=== PATIENT | male | born 1980 | race Caucasian/White ===

== ENCOUNTER 2017-12-19 09:27 | Inpatient (IN) | payer MEDICAID ==
[~2017-12-19] VITALS: Ht 177.8 cm; Wt 77.2 kg
[~2017-12-19 09:27] MED LIST: BUSP5TAB3 PO; FLUO20CA39 PO; LORA0.5T PO; OLAN10TA3 PO; QUET200T PO; QUET50TA PO
[2017-12-19 10:08] LABS: BASOPHILS % (AUTO) 0.4 % (0-1); EOSINOPHILS # (AUTO) 0.2 X10'3 (0-0.9); EOSINOPHILS % (AUTO) 1.6 % (0-6); HEMATOCRIT 53.8 % (42.0-52.0); LYMPHOCYTES # (AUTO) 1.3 X10'3 (1.1-4.8); LYMPHOCYTES % (AUTO) 10.2 % (21-51); MEAN CORPUSCULAR HEMOGLOBIN 33.4 PG (27.0-31.0); MEAN CORPUSCULAR VOLUME 95.4 FL (78-98); MEAN PLATELET VOLUME 7.5 FL (7.4-10.4); MONOCYTES # (AUTO) 1.4 X10'3 (0-0.9); MONOCYTES % (AUTO) 10.7 % (2-12); NEUTROPHILS # (AUTO) 9.9 X10'3 (1.8-7.7); NEUTROPHILS % (AUTO) 77.1 % (42-75); PLATELET COUNT 355 X10'3 (140-440); RED BLOOD COUNT 5.64 X10'6 (4.70-6.10); RED CELL DISTRIBUTION WIDTH 13.6 % (11.5-14.5); WHITE BLOOD COUNT 12.9 X10'3 (4.5-11.0)
[2017-12-19 10:11] LABS: HEMOGLOBIN 18.8 g/dl (14.0-17.9)
[2017-12-19 10:35] LABS: ALANINE AMINOTRANSFERASE 49 U/L (12-78); ALBUMIN 4.7 G/DL (3.4-5.0); ALBUMIN/GLOBULIN RATIO 1.1 (1.1-1.5); ALKALINE PHOSPHATASE 114 IU/L (46-116); ANION GAP 14 (8-16); ASPARTATE AMINO TRANSFERASE 72 U/L (10-37); BLOOD UREA NITROGEN 62 MG/DL (7-18); BUN/CREATININE RATIO 31.5 (5.4-32.0); CALCIUM 9.3 MG/DL (8.5-10.1); CHLORIDE 93 MMOL/L (99-107); CREATININE 1.97 MG/DL (0.60-1.10); GLUCOSE 116 MG/DL (70-104); POTASSIUM 4.1 MMOL/L (3.5-5.1); SODIUM 133 MMOL/L (135-145); TOTAL CARBON DIOXIDE 26.1 MMOL/L (24-32); TOTAL PROTEIN 9.1 G/DL (6.4-8.2); eGFR 38 ML/MIN
[2017-12-19 10:36] LABS: ETHANOL < 0.010 GM/DL (0.0-0.010)
[2017-12-19] MEDS ORDERED: normal saline 1000ML IV soln IVB ONE ×2 (10:50→12:55)
[2017-12-19 11:29] LABS: CREATINE KINASE 3062 U/L (39-308)
[2017-12-19 11:32] LABS: CLARITY,URINE CLEAR (Clear); COLOR,URINE YELLOW (Yellow); GLUCOSE, URINE 100 mg/dl (Neg); KETONES,URINE NEGATIVE (Neg); LEUKOCYTE ESTERASE ,URINE NEGATIVE (Neg); NITRITES, URINE NEGATIVE (Neg); OCCULT BLOOD,URINE LARGE (Neg); PROTEIN,URINE 100 mg/dl (Neg); UROBILINOGEN,URINE 0.2 E.U/dL (0.2-1.0)
[2017-12-19 11:34] LABS: UA COLLECTION TYPE URINAL
[2017-12-19 11:39] LABS: BACTERIA,URINE FEW /HPF (Neg); RBC,URINE NONE SEEN /HPF (0-2); SQUAMOUS EPITHELIAL CELL,UR FEW /LPF (FEW); WBC,URINE NONE SEEN /HPF (0-4)
[2017-12-19 11:44] LABS: URINE AMPHETAMINE SCREEN POSITIVE (Neg); URINE BARBITUATE SCREEN NEGATIVE (Neg); URINE BENZODIAZEPINES SCREEN NEGATIVE (Neg); URINE CANNABINOID SCREEN POSITIVE (Neg); URINE COCAINE SCREEN NEGATIVE (Neg); URINE METHADONE SCREEN NEGATIVE (Neg); URINE OPIATE SCREEN NEGATIVE (Neg); URINE PHENCYCLIDINE SCREEN NEGATIVE (Neg)
[2017-12-19] MEDS ORDERED: sodium bicarbonate (0.9mEq/ml) 44.6 mEq/50ml syringe IV ONE ×2 (12:55→18:25)
[2017-12-19] MEDS: normal saline 1000ml 1,000 ML IV SCH ×2 (14:03→20:10)
[2017-12-19] MEDS ORDERED: HYDROcodone/acetaminophen 5mg/325mg tablet PO PRN (14:05)
[2017-12-19] MEDS ORDERED: LORazepam 0.5 MG tablet PO PRN (14:05)
[2017-12-19] MEDS ORDERED: potassium Cl 20 mEq SR tablet PO PRN ×2 (14:05)
[2017-12-19] MEDS ORDERED: potassium Cl 40MEQ/NS 500ml 500 ML IV PRN ×2 (14:05)
[2017-12-19] MEDS ORDERED: mag hydrox/Alum hydrox/simeth 30ml oral suspension PO PRN (14:05)
[2017-12-19] MEDS ORDERED: magnesium Cl slow-release 64mg tablet PO PRN (14:05)
[2017-12-19] MEDS ORDERED: magnesium hydroxide 30ml (MOM) UD suspension PO PRN (14:05)
[2017-12-19] MEDS ORDERED: magnesium 4gm in 100ml NS 100 ML IV PRN (14:05)
[2017-12-19] MEDS ORDERED: magnesium 2GM in 50ml NS 50 ML IV PRN (14:05)
[2017-12-19] MEDS ORDERED: morphine 2 MG/ML inj. syringe IV PRN (14:05)
[2017-12-19] MEDS ORDERED: olanzapine 10mg tablet PO PRN (14:05)
[2017-12-19] MEDS ORDERED: diphenhydrAMINE 50 mg/ml inj IV PRN (14:05)
[2017-12-19] MEDS: K and/or MAG REPLACEMENT MC SCH (14:05)
[2017-12-19] MEDS ORDERED: acetaminophen 325mg tablet PO PRN (14:05)
[2017-12-19] MEDS ORDERED: ondansetron/PF 4mg/2ml inj IV PRN (14:05)
[2017-12-19] MEDS ORDERED: sodium bicarbonate (8.4%) 1 mEq/ml syringe IV ONE (18:30)
[2017-12-19] MEDS: FLUoxetine 20mg capsule PO SCH (18:49)
[2017-12-19] MEDS: quetiapine 100mg tablet PO SCH (20:08)
[2017-12-19] MEDS: busPIRone 5mg tablet PO SCH (20:08)
[2017-12-20] MEDS: normal saline 1000ml 1,000 ML IV SCH ×5 (00:03→20:07)
[2017-12-20 07:45] LABS: BASOPHILS % (AUTO) 0.3 % (0-1); EOSINOPHILS # (AUTO) 0.3 X10'3 (0-0.9); EOSINOPHILS % (AUTO) 2.8 % (0-6); HEMATOCRIT 37.5 % (42.0-52.0); HEMOGLOBIN 13.4 g/dl (14.0-17.9); LYMPHOCYTES # (AUTO) 2.1 X10'3 (1.1-4.8); LYMPHOCYTES % (AUTO) 23.7 % (21-51); MEAN CORPUSCULAR HEMOGLOBIN 33.9 PG (27.0-31.0); MEAN CORPUSCULAR HGB CONC 35.6 % (33.0-36.5); MEAN CORPUSCULAR VOLUME 95.2 FL (78-98); MEAN PLATELET VOLUME 7.3 FL (7.4-10.4); MONOCYTES # (AUTO) 1.2 X10'3 (0-0.9); MONOCYTES % (AUTO) 13.7 % (2-12); NEUTROPHILS # (AUTO) 5.3 X10'3 (1.8-7.7); NEUTROPHILS % (AUTO) 59.5 % (42-75); PLATELET COUNT 243 X10'3 (140-440); RED BLOOD COUNT 3.94 X10'6 (4.70-6.10); RED CELL DISTRIBUTION WIDTH 13.7 % (11.5-14.5); WHITE BLOOD COUNT 8.9 X10'3 (4.5-11.0)
[2017-12-20] MEDS: K and/or MAG REPLACEMENT MC SCH (08:00)
[2017-12-20 08:16] LABS: ALANINE AMINOTRANSFERASE 48 U/L (12-78); ALBUMIN 2.8 G/DL (3.4-5.0); ALKALINE PHOSPHATASE 67 IU/L (46-116); ANION GAP 6 (8-16); ASPARTATE AMINO TRANSFERASE 50 U/L (10-37); BILIRUBIN,TOTAL 0.7 MG/DL (0.1-1.0); BLOOD UREA NITROGEN 20 MG/DL (7-18); BUN/CREATININE RATIO 23.8 (5.4-32.0); CALCIUM 7.5 MG/DL (8.5-10.1); CHLORIDE 108 MMOL/L (99-107); CREATININE 0.84 MG/DL (0.60-1.10); GLUCOSE 93 MG/DL (70-104); MAGNESIUM 2.1 MG/DL (1.5-2.4); PHOSPHORUS 1.7 MG/DL (2.3-4.5); POTASSIUM 4.5 MMOL/L (3.5-5.1); SODIUM 140 MMOL/L (135-145); TOTAL PROTEIN 5.6 G/DL (6.4-8.2); eGFR > 90 ML/MIN
[2017-12-20 08:18] LABS: CREATINE KINASE 1555 U/L (39-308)
[2017-12-20] MEDS: FLUoxetine 20mg capsule PO SCH (11:35)
[2017-12-20] MEDS: quetiapine 100mg tablet PO SCH ×2 (11:35→22:37)
[2017-12-20] MEDS: busPIRone 5mg tablet PO SCH ×2 (11:36→22:36)
[2017-12-20 14:16] VITALS: BP 121/78
[2017-12-20 15:00] VITALS: BP 117/68
[2017-12-20 18:00] VITALS: BP 134/82
[2017-12-20 22:00] VITALS: BP 132/82
[2017-12-21 02:00] VITALS: BP 126/78
[2017-12-21] MEDS: normal saline 1000ml 1,000 ML IV SCH ×4 (02:24→19:38)
[2017-12-21 06:00] VITALS: BP 112/78
[2017-12-21 06:09] LABS: BASOPHILS % (AUTO) 0.2 % (0-1); EOSINOPHILS # (AUTO) 0.4 X10'3 (0-0.9); EOSINOPHILS % (AUTO) 4.5 % (0-6); HEMATOCRIT 37.4 % (42.0-52.0); HEMOGLOBIN 13.3 g/dl (14.0-17.9); LYMPHOCYTES # (AUTO) 2.1 X10'3 (1.1-4.8); MEAN CORPUSCULAR HGB CONC 35.5 % (33.0-36.5); MEAN CORPUSCULAR VOLUME 95.6 FL (78-98); MEAN PLATELET VOLUME 7.1 FL (7.4-10.4); MONOCYTES # (AUTO) 0.9 X10'3 (0-0.9); MONOCYTES % (AUTO) 10.6 % (2-12); NEUTROPHILS # (AUTO) 4.7 X10'3 (1.8-7.7); NEUTROPHILS % (AUTO) 58.7 % (42-75); PLATELET COUNT 225 X10'3 (140-440); RED BLOOD COUNT 3.91 X10'6 (4.70-6.10); RED CELL DISTRIBUTION WIDTH 13.8 % (11.5-14.5); WHITE BLOOD COUNT 8.1 X10'3 (4.5-11.0)
[2017-12-21 06:36] LABS: ALANINE AMINOTRANSFERASE 41 U/L (12-78); ALBUMIN 2.7 G/DL (3.4-5.0); ALKALINE PHOSPHATASE 73 IU/L (46-116); ANION GAP 9 (8-16); ASPARTATE AMINO TRANSFERASE 36 U/L (10-37); BILIRUBIN,TOTAL 0.6 MG/DL (0.1-1.0); BLOOD UREA NITROGEN 9 MG/DL (7-18); BUN/CREATININE RATIO 11.3 (5.4-32.0); CALCIUM 7.8 MG/DL (8.5-10.1); CHLORIDE 108 MMOL/L (99-107); CREATINE KINASE 772 U/L (39-308); GLUCOSE 94 MG/DL (70-104); MAGNESIUM 1.7 MG/DL (1.5-2.4); PHOSPHORUS 2.1 MG/DL (2.3-4.5); POTASSIUM 4.3 MMOL/L (3.5-5.1); SODIUM 142 MMOL/L (135-145); TOTAL CARBON DIOXIDE 25.1 MMOL/L (24-32); TOTAL PROTEIN 5.5 G/DL (6.4-8.2); eGFR > 90 ML/MIN
[2017-12-21] MEDS: K and/or MAG REPLACEMENT MC SCH (08:00)
[2017-12-21] MEDS: FLUoxetine 20mg capsule PO SCH (08:02)
[2017-12-21] MEDS: busPIRone 5mg tablet PO SCH ×2 (08:03→19:36)
[2017-12-21] MEDS: quetiapine 100mg tablet PO SCH ×2 (08:03→19:36)
[2017-12-21] MEDS ORDERED: pneumococcal 23-VAL P-sac vacc 25 mcg/0.5ml vial IMVAC ONE (10:00)
[2017-12-21 11:00] VITALS: BP 117/69
[2017-12-21 15:00] VITALS: BP 125/78
[2017-12-21 19:00] VITALS: BP 133/82
[2017-12-21 22:00] VITALS: BP 129/78
[2017-12-22 02:00] VITALS: BP 125/77
[2017-12-22 05:27] LABS: BASOPHILS % (AUTO) 0.6 % (0-1); EOSINOPHILS # (AUTO) 0.5 X10'3 (0-0.9); EOSINOPHILS % (AUTO) 6.9 % (0-6); HEMATOCRIT 39.2 % (42.0-52.0); HEMOGLOBIN 14.1 g/dl (14.0-17.9); LYMPHOCYTES % (AUTO) 30.2 % (21-51); MEAN CORPUSCULAR HEMOGLOBIN 34.3 PG (27.0-31.0); MEAN CORPUSCULAR VOLUME 95.1 FL (78-98); MEAN PLATELET VOLUME 7.7 FL (7.4-10.4); MONOCYTES # (AUTO) 0.7 X10'3 (0-0.9); MONOCYTES % (AUTO) 10.5 % (2-12); NEUTROPHILS # (AUTO) 3.5 X10'3 (1.8-7.7); NEUTROPHILS % (AUTO) 51.8 % (42-75); PLATELET COUNT 250 X10'3 (140-440); RED BLOOD COUNT 4.13 X10'6 (4.70-6.10); RED CELL DISTRIBUTION WIDTH 13.1 % (11.5-14.5); WHITE BLOOD COUNT 6.7 X10'3 (4.5-11.0)
[2017-12-22] MEDS: normal saline 1000ml 1,000 ML IV SCH (05:49)
[2017-12-22 06:00] VITALS: BP 138/81
[2017-12-22 06:10] LABS: ALANINE AMINOTRANSFERASE 50 U/L (12-78); ALKALINE PHOSPHATASE 81 IU/L (46-116); ANION GAP 8 (8-16); ASPARTATE AMINO TRANSFERASE 33 U/L (10-37); BILIRUBIN,TOTAL 0.4 MG/DL (0.1-1.0); BLOOD UREA NITROGEN 14 MG/DL (7-18); BUN/CREATININE RATIO 15.1 (5.4-32.0); CHLORIDE 105 MMOL/L (99-107); CREATININE 0.93 MG/DL (0.60-1.10); GLUCOSE 87 MG/DL (70-104); MAGNESIUM 1.6 MG/DL (1.5-2.4); PHOSPHORUS 2.6 MG/DL (2.3-4.5); POTASSIUM 4.2 MMOL/L (3.5-5.1); SODIUM 139 MMOL/L (135-145); TOTAL CARBON DIOXIDE 25.9 MMOL/L (24-32); TOTAL PROTEIN 6.1 G/DL (6.4-8.2); eGFR > 90 ML/MIN
[2017-12-22] MEDS: K and/or MAG REPLACEMENT MC SCH (08:00)
[2017-12-22] MEDS ORDERED: quetiapine 100mg tablet PO SCH (08:00)
[2017-12-22] MEDS: busPIRone 5mg tablet PO SCH (08:13)
[2017-12-22] MEDS: FLUoxetine 20mg capsule PO SCH (08:13)
[2017-12-22 11:00] VITALS: BP 113/47
[2017-12-22] MEDS ORDERED: QUET200T PO (19:42)
== END 2017-12-22 14:10 | DRG 351 ==
LOC: ER 09:27 → OBSVTOIN 14:03 → ED HOLD 14:03 → PCU 3S 12-20 14:10
PROVIDERS: ADMIT Family Medicine; ATTEND Family Medicine
PROC: 3E0234Z Introduction of Serum, Toxoid and Vaccine into Muscle, Percutaneous Approach (ICD-10-PCS; principal; 2017-12-21)
DX: M62.82 Rhabdomyolysis (principal); N17.9 Acute kidney failure, unspecified; R45.851 Suicidal ideations; E87.1 Hypo-osmolality and hyponatremia; E86.0 Dehydration; F12.10 Cannabis abuse, uncomplicated; F15.10 Other stimulant abuse, uncomplicated; F20.9 Schizophrenia, unspecified; F41.9 Anxiety disorder, unspecified; Z72.0 Tobacco use; Z23 Encounter for immunization; Z79.899 Other long term (current) drug therapy; Z59.0 Homelessness; Z72.89 Other problems related to lifestyle; Z71.6 Tobacco abuse counseling
CPT/HCPCS: 36415; 80053; 80305; 80320; 81001; 82550; 83735; 83874; 84100; 85025; 87070; 90732; 99291; J2270; J7030

== ENCOUNTER 2017-12-22 14:10 | Emergency (ER) | payer MEDICAID ==
[~2017-12-22] VITALS: Ht 5871 cm; Wt 75.0 kg
[2017-12-22 14:48] LABS: BASOPHILS % (AUTO) 0.4 % (0-1); EOSINOPHILS # (AUTO) 0.4 X10'3 (0-0.9); EOSINOPHILS % (AUTO) 5.1 % (0-6); HEMATOCRIT 40.5 % (42.0-52.0); HEMOGLOBIN 14.4 g/dl (14.0-17.9); LYMPHOCYTES # (AUTO) 2.1 X10'3 (1.1-4.8); MEAN CORPUSCULAR HEMOGLOBIN 34.3 PG (27.0-31.0); MEAN CORPUSCULAR HGB CONC 35.5 % (33.0-36.5); MEAN CORPUSCULAR VOLUME 96.6 FL (78-98); MEAN PLATELET VOLUME 7.6 FL (7.4-10.4); MONOCYTES # (AUTO) 0.7 X10'3 (0-0.9); MONOCYTES % (AUTO) 8.1 % (2-12); NEUTROPHILS # (AUTO) 5.2 X10'3 (1.8-7.7); NEUTROPHILS % (AUTO) 61.4 % (42-75); PLATELET COUNT 261 X10'3 (140-440); RED BLOOD COUNT 4.19 X10'6 (4.70-6.10); RED CELL DISTRIBUTION WIDTH 13.3 % (11.5-14.5); WHITE BLOOD COUNT 8.4 X10'3 (4.5-11.0)
[2017-12-22 15:10] LABS: ALANINE AMINOTRANSFERASE 48 U/L (12-78); ALBUMIN/GLOBULIN RATIO 0.9 (1.1-1.5); ALKALINE PHOSPHATASE 84 IU/L (46-116); ANION GAP 6 (8-16); ASPARTATE AMINO TRANSFERASE 27 U/L (10-37); BILIRUBIN,TOTAL 0.3 MG/DL (0.1-1.0); BLOOD UREA NITROGEN 16 MG/DL (7-18); BUN/CREATININE RATIO 18.8 (5.4-32.0); CALCIUM 8.1 MG/DL (8.5-10.1); CHLORIDE 105 MMOL/L (99-107); CREATININE 0.85 MG/DL (0.60-1.10); ETHANOL < 0.010 GM/DL (0.0-0.010); GLUCOSE 120 MG/DL (70-104); POTASSIUM 3.8 MMOL/L (3.5-5.1); SODIUM 139 MMOL/L (135-145); TOTAL CARBON DIOXIDE 27.8 MMOL/L (24-32); TOTAL PROTEIN 6.3 G/DL (6.4-8.2); eGFR > 90 ML/MIN
[2017-12-22 16:39] LABS: CLARITY,URINE CLEAR (Clear); COLOR,URINE YELLOW (Yellow); GLUCOSE, URINE 250 mg/dl (Neg); KETONES,URINE NEGATIVE (Neg); LEUKOCYTE ESTERASE ,URINE NEGATIVE (Neg); NITRITES, URINE NEGATIVE (Neg); OCCULT BLOOD,URINE NEGATIVE (Neg); PROTEIN,URINE NEGATIVE (Neg); UROBILINOGEN,URINE 0.2 E.U/dL (0.2-1.0)
[2017-12-22 16:41] LABS: UA COLLECTION TYPE URINAL; URINE AMPHETAMINE SCREEN NEGATIVE (Neg); URINE BARBITUATE SCREEN NEGATIVE (Neg); URINE BENZODIAZEPINES SCREEN NEGATIVE (Neg); URINE CANNABINOID SCREEN POSITIVE (Neg); URINE COCAINE SCREEN NEGATIVE (Neg); URINE METHADONE SCREEN NEGATIVE (Neg); URINE OPIATE SCREEN NEGATIVE (Neg); URINE PHENCYCLIDINE SCREEN NEGATIVE (Neg)
[2017-12-22] MEDS ORDERED: QUET200T PO (19:42)
[2017-12-22] MEDS: LORazepam 0.5 MG tablet PO PRN (21:19)
[2017-12-23] MEDS ORDERED: quetiapine 100mg tablet PO SCH (07:30)
[2017-12-23] MEDS: LORazepam 0.5 MG tablet PO PRN (07:41)
[2017-12-23] MEDS ORDERED: FLUoxetine 20mg capsule PO SCH (08:00)
[2017-12-23] MEDS ORDERED: busPIRone 5mg tablet PO SCH (08:00)
[2017-12-23 09:21] VITALS: BP 117/71
== END 2017-12-23 09:29 ==
LOC: ER 14:10
DX: F31.9 Bipolar disorder, unspecified (principal); F20.9 Schizophrenia, unspecified; F41.9 Anxiety disorder, unspecified; F29 Unspecified psychosis not due to a substance or known physiological condition; F12.10 Cannabis abuse, uncomplicated; F15.10 Other stimulant abuse, uncomplicated; F11.10 Opioid abuse, uncomplicated; M62.82 Rhabdomyolysis; Z79.899 Other long term (current) drug therapy; Z56.0 Unemployment, unspecified; Z60.2 Problems related to living alone; Z59.0 Homelessness
CPT/HCPCS: 36415; 80053; 80305; 80320; 81003; 84443; 85025; 99285

== ENCOUNTER 2018-01-03 11:53 | Emergency (ER) | payer MEDICAID ==
[~2018-01-03] VITALS: Ht 6401223 cm; Wt 70.0 kg
[~2018-01-03 11:53] MED LIST changes: -OLAN10TA3 PO; -QUET50TA PO
[2018-01-03 12:59] LABS: BASOPHILS % (AUTO) 0.2 % (0-1); EOSINOPHILS # (AUTO) 0.2 X10'3 (0-0.9); EOSINOPHILS % (AUTO) 2.7 % (0-6); HEMOGLOBIN 17.4 g/dl (14.0-17.9); LYMPHOCYTES # (AUTO) 1.7 X10'3 (1.1-4.8); LYMPHOCYTES % (AUTO) 19.2 % (21-51); MEAN CORPUSCULAR HEMOGLOBIN 33.1 PG (27.0-31.0); MEAN CORPUSCULAR HGB CONC 34.7 % (33.0-36.5); MEAN CORPUSCULAR VOLUME 95.6 FL (78-98); MONOCYTES # (AUTO) 0.8 X10'3 (0-0.9); MONOCYTES % (AUTO) 9.4 % (2-12); NEUTROPHILS # (AUTO) 5.9 X10'3 (1.8-7.7); NEUTROPHILS % (AUTO) 68.5 % (42-75); PLATELET COUNT 303 X10'3 (140-440); RED BLOOD COUNT 5.23 X10'6 (4.70-6.10); RED CELL DISTRIBUTION WIDTH 13.7 % (11.5-14.5); WHITE BLOOD COUNT 8.6 X10'3 (4.5-11.0)
[2018-01-03 13:30] LABS: ALANINE AMINOTRANSFERASE 43 U/L (12-78); ALBUMIN 4.4 G/DL (3.4-5.0); ALKALINE PHOSPHATASE 143 IU/L (46-116); ANION GAP 8 (8-16); ASPARTATE AMINO TRANSFERASE 21 U/L (10-37); BILIRUBIN,TOTAL 0.4 MG/DL (0.1-1.0); BLOOD UREA NITROGEN 20 MG/DL (7-18); BUN/CREATININE RATIO 19.6 (5.4-32.0); CALCIUM 9.4 MG/DL (8.5-10.1); CHLORIDE 102 MMOL/L (99-107); CREATININE 1.02 MG/DL (0.60-1.10); ETHANOL < 0.010 GM/DL (0.0-0.010); GLUCOSE 119 MG/DL (70-104); POTASSIUM 4.4 MMOL/L (3.5-5.1); SODIUM 138 MMOL/L (135-145); TOTAL CARBON DIOXIDE 27.8 MMOL/L (24-32); TOTAL PROTEIN 8.8 G/DL (6.4-8.2); eGFR 82 ML/MIN
[2018-01-03] MEDS ORDERED: PRAZ1CAP5 PO (13:58)
[2018-01-03] MEDS ORDERED: CARB100T7 PO (13:58)
[2018-01-03] MEDS ORDERED: QUET200T30 PO (13:58)
[2018-01-03] MEDS ORDERED: CARB200T PO (13:58)
[2018-01-03 14:51] LABS: BASOPHILS # (AUTO) 0.1 X10'3 (0-0.2); BASOPHILS % (AUTO) 0.6 % (0-1); EOSINOPHILS # (AUTO) 0.2 X10'3 (0-0.9); EOSINOPHILS % (AUTO) 2.5 % (0-6); HEMATOCRIT 48.2 % (42.0-52.0); HEMOGLOBIN 16.6 g/dl (14.0-17.9); LYMPHOCYTES # (AUTO) 1.8 X10'3 (1.1-4.8); LYMPHOCYTES % (AUTO) 19.3 % (21-51); MEAN CORPUSCULAR HGB CONC 34.5 % (33.0-36.5); MEAN CORPUSCULAR VOLUME 95.8 FL (78-98); MEAN PLATELET VOLUME 7.2 FL (7.4-10.4); MONOCYTES # (AUTO) 0.9 X10'3 (0-0.9); MONOCYTES % (AUTO) 10.3 % (2-12); NEUTROPHILS # (AUTO) 6.1 X10'3 (1.8-7.7); NEUTROPHILS % (AUTO) 67.3 % (42-75); PLATELET COUNT 284 X10'3 (140-440); RED BLOOD COUNT 5.03 X10'6 (4.70-6.10); RED CELL DISTRIBUTION WIDTH 13.5 % (11.5-14.5); WHITE BLOOD COUNT 9.1 X10'3 (4.5-11.0)
[2018-01-03 16:14] LABS: CLARITY,URINE CLEAR (Clear); COLOR,URINE YELLOW (Yellow); GLUCOSE, URINE NEGATIVE (Neg); KETONES,URINE TRACE mg/dl (Neg); LEUKOCYTE ESTERASE ,URINE NEGATIVE (Neg); NITRITES, URINE NEGATIVE (Neg); OCCULT BLOOD,URINE TRACE-LYSED (Neg); PROTEIN,URINE 30 mg/dl (Neg); UROBILINOGEN,URINE 0.2 E.U/dL (0.2-1.0)
[2018-01-03 16:19] LABS: UA COLLECTION TYPE CLN CATCH MIDSTREAM
[2018-01-03 16:20] LABS: BACTERIA,URINE NONE SEEN /HPF (Neg); MUCUS STRANDS MODERATE /LPF (Neg); RBC,URINE 0-2 /HPF (0-2); SQUAMOUS EPITHELIAL CELL,UR NONE SEEN /LPF (FEW); WBC,URINE 0-4 /HPF (0-4)
[2018-01-03 16:31] LABS: URINE AMPHETAMINE SCREEN POSITIVE (Neg); URINE BARBITUATE SCREEN NEGATIVE (Neg); URINE BENZODIAZEPINES SCREEN NEGATIVE (Neg); URINE CANNABINOID SCREEN POSITIVE (Neg); URINE COCAINE SCREEN NEGATIVE (Neg); URINE METHADONE SCREEN NEGATIVE (Neg); URINE OPIATE SCREEN NEGATIVE (Neg); URINE PHENCYCLIDINE SCREEN NEGATIVE (Neg)
[2018-01-03] MEDS ORDERED: quetiapine 100mg tablet PO ONE (18:55)
[2018-01-03] MEDS ORDERED: prazosin 1mg capsule PO SCH (21:00)
[2018-01-03] MEDS ORDERED: carBAMazepine Ext. Release 200 MG TAB.ER.12H PO SCH (21:00)
[2018-01-04 05:36] VITALS: BP 103/68
[2018-01-04] MEDS ORDERED: quetiapine 100mg tablet PO SCH ×2 (08:00→12:00)
[2018-01-04] MEDS ORDERED: carBAMazepine 100mg chewable tablet PO SCH (08:00)
== END 2018-01-04 13:02 | disposition home or self-care (01) ==
LOC: ER 11:54
DX: F15.10 Other stimulant abuse, uncomplicated (principal); R45.851 Suicidal ideations; F17.200 Nicotine dependence, unspecified, uncomplicated; F20.9 Schizophrenia, unspecified; F41.9 Anxiety disorder, unspecified; F12.10 Cannabis abuse, uncomplicated; F11.10 Opioid abuse, uncomplicated; Z59.0 Homelessness; Z56.0 Unemployment, unspecified; Z60.2 Problems related to living alone
CPT/HCPCS: 36415; 80053; 80156; 80305; 80320; 81001; 84443; 85025; 99284; A4649; A6196; A6449

== ENCOUNTER 2019-12-01 10:58 | Emergency (ER) | payer MEDICAID ==
[~2019-12-01] VITALS: Ht 185.4 cm; Wt 77.0 kg
[~2019-12-01 10:58] MED LIST changes: -BUSP5TAB3 PO; +CARB100T7 PO; +CARB200T PO; -FLUO20CA39 PO; -LORA0.5T PO; +PRAZ1CAP5 PO; +QUET200T30 PO
[2019-12-01] MEDS ORDERED: OLANZapine 5mg rapidly disint. tablet PO ONE (11:25)
[2019-12-01 11:52] LABS: BASOPHILS # (AUTO) 0.1 X10'3 (0-0.2); BASOPHILS % (AUTO) 0.9 % (0-1); EOSINOPHILS # (AUTO) 0.4 X10'3 (0-0.9); EOSINOPHILS % (AUTO) 4.9 % (0-6); HEMOGLOBIN 15.6 g/dl (14.0-17.9); LYMPHOCYTES # (AUTO) 2.2 X10'3 (1.1-4.8); LYMPHOCYTES % (AUTO) 28.7 % (21-51); MEAN CORPUSCULAR HEMOGLOBIN 33.6 PG (27.0-31.0); MEAN CORPUSCULAR HGB CONC 34.7 g/dL (33.0-36.5); MEAN PLATELET VOLUME 7.2 FL (7.4-10.4); MONOCYTES # (AUTO) 0.8 X10'3 (0-0.9); MONOCYTES % (AUTO) 10.3 % (2-12); NEUTROPHILS # (AUTO) 4.3 X10'3 (1.8-7.7); NEUTROPHILS % (AUTO) 55.2 % (42-75); PLATELET COUNT 323 X10'3 (140-440); RED BLOOD COUNT 4.64 X10'6 (4.70-6.10); RED CELL DISTRIBUTION WIDTH 13.4 % (11.5-14.5); WHITE BLOOD COUNT 7.7 X10'3 (4.5-11.0)
[2019-12-01 12:05] LABS: ALANINE AMINOTRANSFERASE 37 U/L (12-78); ALBUMIN/GLOBULIN RATIO 1.2 (1.1-1.5); ALKALINE PHOSPHATASE 105 IU/L (46-116); ANION GAP 4 (8-16); ASPARTATE AMINO TRANSFERASE 19 U/L (10-37); BILIRUBIN,TOTAL 0.3 MG/DL (0.1-1.0); BLOOD UREA NITROGEN 12 MG/DL (7-18); BUN/CREATININE RATIO 14.6 (5.4-32.0); CALCIUM 8.7 MG/DL (8.5-10.1); CHLORIDE 104 MMOL/L (99-107); CREATININE 0.82 MG/DL (0.60-1.10); ETHANOL < 0.010 GM/DL (0.0-0.010); GLUCOSE 95 MG/DL (70-104); POTASSIUM 4.3 MMOL/L (3.5-5.1); SODIUM 136 MMOL/L (135-145); TOTAL CARBON DIOXIDE 27.8 MMOL/L (24-32); TOTAL PROTEIN 7.4 G/DL (6.4-8.2); eGFR > 90 ML/MIN
[2019-12-01 12:25] LABS: URINE AMPHETAMINE SCREEN NEGATIVE (Neg); URINE BARBITUATE SCREEN NEGATIVE (Neg); URINE BENZODIAZEPINES SCREEN NEGATIVE (Neg); URINE CANNABINOID SCREEN POSITIVE (Neg); URINE COCAINE SCREEN NEGATIVE (Neg); URINE METHADONE SCREEN NEGATIVE (Neg); URINE OPIATE SCREEN NEGATIVE (Neg); URINE PHENCYCLIDINE SCREEN NEGATIVE (Neg)
--- NOTE | 2019-12-01 12:30 | NUR ---
SPOKE WITH PT MOTHER JESSIKA # [phone], MOTHER REPORTS PT HAS LIFETIME HX OF METHAMPHETAMINE ABUSE, BIPOLAR POSSIBLE SCHIZOPHRENIA, PT HAS NEVER HAD A JOB, PREVIOUSLY LIVED WITH MOTHER 11/2017-04/2018 WAS SEEING PSYCH PROVIDER BUT DOES NOT KNOW NAME, PT ALSO HAS BEEN TO [facility] AND [facility] FOR REHAB IN THE PAST, PT HAS USED SERVICES AT THE [facility] IN YEARS PAST BUT HAS ONLY RECENTLY MOVED BACK TO [place] FROM [place] 3 DAYS AGO, PT MOTHER STATES PT HAS IRRACTIC BEHAVIOR WITH OCCASSIONAL OUTBURST. PT REPORTS HE ONLY TAKES ZYPREXA BUT HAS NOT TAKEN ZYPREXA IN 3 DAYS, PT REPORTS TO NAHID MORA HIS PLAN IS TO USE HEROIN BUT HE DOES NOT USE HERIN, CALLED [facility] IN [place] TO GET MEDICATION INFORMATION [phone] PT LAST FILLED MEDICATIONS 11/06/2019 OLANZAPINE 20MG 1.5 TABS HS, HYDROXYZINE 50 MG 1 TAB TID ANXIETY, AND ESCITALOPRAM 20MG DAILY AND PROVIDER NAME MARJ CONTRERAS DO [phone] WILL CALL PROVIDER TO VERFIY MEDICATION INFORMATION. PT PREVIOUSLY FILLED 3 MONTHS AGO GABAPENTIN 300 MG TID BUT IT WAS NOT FILLED IN OCTOBER WITH OTHER MEDICATIONS.
--- NOTE | 2019-12-01 12:37 | NUR ---
PT AMBULATORY FROM BED 14 TO BED 24 ESCORTED BY GERDA MORA AND CARLOS TAPIA. PT CALM AND COOPERATIVE DURING TRANSFER OF BED.
--- NOTE | 2019-12-01 12:59 | NUR ---
CALLED [phone] LEFT MESSAGE WITH [facility]EEB JON[facility] LEFT MESSAGE TO CONFIRM MEDICATIONS AND MEDICAL HISTORY
[2019-12-01] MEDS ORDERED: HYDR50TA65 PO (13:10)
[2019-12-01] MEDS ORDERED: ESCI20TA45 PO (13:10)
[2019-12-01] MEDS ORDERED: OLAN2.5T3 PO (13:10)
[2019-12-01] MEDS ORDERED: OLAN20TA19 PO (13:10)
[2019-12-01 13:12] LABS: CLARITY,URINE CLEAR (Clear); COLOR,URINE YELLOW (Yellow); GLUCOSE, URINE NEGATIVE (Neg); KETONES,URINE NEGATIVE (Neg); LEUKOCYTE ESTERASE ,URINE NEGATIVE (Neg); NITRITES, URINE NEGATIVE (Neg); OCCULT BLOOD,URINE NEGATIVE (Neg); PH,URINE 7.5 (4.8-8.0); PROTEIN,URINE NEGATIVE (Neg); UROBILINOGEN,URINE 0.2 E.U/dL (0.2-1.0)
--- NOTE | 2019-12-01 13:15 | NUR ---
PT ATE LUNCH TRAY VERY FAST AND THEN IMMEDIATELY LAY DOWN IN BED 24
[2019-12-01 13:17] LABS: UA COLLECTION TYPE CLN CATCH MIDSTREAM
[2019-12-01 13:33] LABS: SQUAMOUS EPITHELIAL CELL,UR FEW /LPF (FEW)
[2019-12-01 13:34] LABS: BACTERIA,URINE FEW /HPF (Neg); RBC,URINE 0-2 /HPF (0-2); WBC,URINE 0-4 /HPF (0-4)
--- NOTE | 2019-12-01 14:46 | NUR ---
PT SLEEPING ON BACK, RESPIRATIONS SPONTAENOUS, EVEN AND UNLABORED, NO S/S OF DISTRESS, DISCOMFORT OR AGITATION, PT IN LINE OF SITE OF NURSES STATION AND ED SITTER KAJAL
--- NOTE | 2019-12-01 16:55 | NUR ---
PT IS SLEEPING ON RIGHT SIDE, RESPRIATIONS SPONTANEOUS, EVEN AND UNLABORED, NO S/S OF DISTRESS, DISCOMFORT, OR AGITATION. PT IN LINE OF SITE OF NURSES STATION AND ED SITTER KAJAL.
--- NOTE | 2019-12-01 17:15 | NUR ---
RIC WITH [facility] AT BEDSIDE FOR EVALUATION NOW
--- NOTE | 2019-12-01 17:28 | NUR ---
PT WAS VERY CONFRONTATION WITH GERDA MORA AND RIC AVALOS DURING EVALUATION, PT USED MOSTLY PROFANITY AND DID NOT MAKE MANY STATEMENTS THAT MADE MUCH SENSE, PT DID REPORT HE IS HAVING A BAD DAY BUT BECAME UPSET SITTING UP IN BED WITH EYES CLOSED YELLING ABOUT PEOPLE MESSING WITH HIM AND UPSETING HIM, HE WAS IRRITATED ABOUT SAME QUESTIONS BEING ASKED, INSTRUCTED HIM THAT HE WOULD BE ASKED SIMILAR QUESTION AND HE WOULD SUBMIT AND BE AGREEABLE UNTIL ANOTHER QUESTION WAS ASKED AND THEN THE SAME CYCLE OF HIM SITTING UP, YELLING, EYES CLOSED AND IRRITATED. [facility] ENDED EVALUATION AND WILL CALL PT MOTHER TO GET HISTORY, GERDA MORA GAVE RIC AVALOS A BRIEF REPORTS OF PATIENT MEDICAL, DRUG, AND PSYCH HISTORY
--- NOTE | 2019-12-01 18:40 | NUR ---
PT IS AWAKE SITTING UP IN BED TALKING TO [facility] WORK[facility].
[2019-12-01] MEDS: hydrOXYzine 25 MG tablet PO SCH ×2 (20:27→21:00)
[2019-12-01] MEDS: olanzapine 10mg tablet PO SCH ×2 (20:27→21:00)
--- NOTE | 2019-12-01 20:47 | NUR ---
PT REFUSED ASSESSMENT AND HS MEDICATIONS ATARAX AND ZYPREXA. LABORER BITUMINOUS PAVING ATTEMPTED TO GIV E MEDS 3X, BU PT REFUSED EACH TIME, WOULD NOT TALK TO LABORER BITUMINOUS PAVING AND KEPT HIS EYES CLOSED.
--- NOTE | 2019-12-01 22:19 | NUR ---
PT ASLEEP ON BACK RR 14, NO SIGNS OR SYMPTOMS OF DISTRESS AT THIS TIME.
--- NOTE | 2019-12-02 00:49 | NUR ---
PT IS LYING AWAKE IN BED, CAN BE HEARD MUMBLING TO HIMSELF OCCASIONALLY.
--- NOTE | 2019-12-02 01:12 | NUR ---
PT GETS UP TO USE THE RESTROOM, LEAD RETAIL SALES ASSOCIATE APPROACHES PT TO SEE IF HE NEEDS ANYRTHING BUT BEFORE LEAD RETAIL SALES ASSOCIATE COULD SPEAK PT HOLDS HIS HANDS UP AND SAYS, "JUST DON'T TALK TO ME." AND GOES TO THE BATHROOM AND RETURNS TO BED.
[2019-12-02] MEDS: hydrOXYzine 25 MG tablet PO SCH ×3 (08:00→20:09)
[2019-12-02] MEDS: ESCITALOPRAM OXALATE 5 MG TABLET PO SCH (08:00)
--- NOTE | 2019-12-02 08:56 | NUR ---
NEIGHBOR PT REPORTS THIS PT STATED "STOP FUCKING ASKING FOR THINGS, IT'S PISSING ME OFF". RN AWARE, COOLER MAN MONITORING PTS CLOSELY.
--- NOTE | 2019-12-02 09:21 | NUR ---
Breaking primary RN, pt is laying on his left side, eyes closed, regular breathing no s/s of agitation observed
--- NOTE | 2019-12-02 12:38 | NUR ---
Breaking Primary RN, Pt is standing at the end of his bed, requested something to drink, was given milk
--- NOTE | 2019-12-02 13:00 | NUR ---
Pt req Gabapentin, says it is due at this time, I told him that it is not a medication that is ordered for him and it does not appear on his external med history, but he has an order for aterax, he refused aterax
--- NOTE | 2019-12-02 18:40 | NUR ---
Received report and assumed patient care from ABBY Gonsales. The patient is currently awake and alert, lying on his left side in bed resting. He denies pain or discomfort. Pt is in direct line of sight of the nursing station.
[2019-12-02] MEDS: olanzapine 10mg tablet PO SCH (20:09)
--- NOTE | 2019-12-02 20:35 | NUR ---
The patient is sleeping on his back at this time. He denies pain or discomfort. The patient was easily arousable and took his HS medication at 2014 after utilizing the restroom. He has visible respirations and is in direct line of sight of the nursing station.
--- NOTE | 2019-12-02 22:28 | NUR ---
The patient is currently lying on his right side, sleeping in bed. He has visible respirations and is in direct line of sight of the nursing station. He does not show sign of pain or discomfort.
--- NOTE | 2019-12-03 00:25 | NUR ---
The patient is sleeping on his left side with visible respiration. He does not show sign of pain or discomfort. He utilized the bathroom at 0010. He is in direct line of sight of the nursing station.
--- NOTE | 2019-12-03 02:21 | NUR ---
Pt is currently sleeping on his back with visible respirations. He got up to use the toilet at 0100. He does not show sign of pain or distress. Pt is in direct line of sight of the nursing station.
--- NOTE | 2019-12-03 03:40 | NUR ---
The patient is currently on his back, sleeping, with visible respirations. He is independent of turning himself and does not show sign of pain or discomfort. He is in direct line of sight of the nursing station.
--- NOTE | 2019-12-03 05:11 | NUR ---
The patient is currently sleeping on his right side with visible respirations. He does not show sign of pain or discomfort. He is in direct line of sight of the nursing station.
[2019-12-03 05:33] VITALS: BP 131/75
[2019-12-03] MEDS: hydrOXYzine 25 MG tablet PO SCH ×2 (08:15→12:57)
[2019-12-03] MEDS: ESCITALOPRAM OXALATE 5 MG TABLET PO SCH (08:28)
--- NOTE | 2019-12-03 09:00 | NUR ---
Spoke with Stacey at [facility] office. Pt packets have been sent out but limited on available beds as [place] from different [place] and limited facilities that are contracted with [facility].
--- NOTE | 2019-12-03 10:44 | NUR ---
Pt laying on left side resting with eyes closed, effortless respirations observed.
--- NOTE | 2019-12-03 13:10 | NUR ---
Pt is sitting up eating lunch.
--- NOTE | 2019-12-03 14:28 | NUR ---
pt is sitting on side of bed eating a snack.
[2019-12-03] MEDS ORDERED: GABA-532 PO (17:44)
== END 2019-12-03 16:10 ==
LOC: ER 10:58
DX: R45.851 Suicidal ideations (principal); F20.9 Schizophrenia, unspecified; F31.9 Bipolar disorder, unspecified; F12.90 Cannabis use, unspecified, uncomplicated; F15.90 Other stimulant use, unspecified, uncomplicated; F11.90 Opioid use, unspecified, uncomplicated; Z60.2 Problems related to living alone; Z59.0 Homelessness; Z56.0 Unemployment, unspecified; Z79.899 Other long term (current) drug therapy
CPT/HCPCS: 36415; 80053; 80305; 80320; 81001; 84443; 85025; 99285; Z7610

== ENCOUNTER 2019-12-19 11:10 | Emergency (ER) | payer MEDICAID ==
[~2019-12-19] VITALS: Ht 177.8 cm; Wt 68.2 kg
[~2019-12-19 11:10] MED LIST changes: -CARB100T7 PO; -CARB200T PO; +DIVA-76 PO; +GABA-532 PO; +HYDR50TA65 PO; +OLAN15TA17 PO; -QUET200T PO; -QUET200T30 PO
--- NOTE | 2019-12-19 11:26 | NUR ---
POISON CONTROL CALLED, RECOMMENDED: CHARCOL, EKG, LABS: CMP, CBC, ASA/TYLENLO, ETOH LEVELS LOOK FOR PHARMACEUTICAL SPECIALTY REPRESENTATIVE DEPRESSION IN A COUPLE OF HRS WITH DEPACOTE, COMA, ELECROLITE CHANGES. DO SERIAL DEPAKOTE/AMMONIA LEVELS FOR DEPAKOTE Q3-4 HRS TILL IT PEAKS AND DECREASES. ELCARNATINE FOR ELEVATED AMONIA DONNA FOR DEPAKOT ELEVATED LEVELS POSSIBLE DIALYSIS IF WARRENTED
[2019-12-19 11:56] LABS: CLARITY,URINE CLEAR (Clear); COLOR,URINE YELLOW (Yellow); GLUCOSE, URINE NEGATIVE (Neg); KETONES,URINE NEGATIVE (Neg); LEUKOCYTE ESTERASE ,URINE NEGATIVE (Neg); NITRITES, URINE NEGATIVE (Neg); OCCULT BLOOD,URINE TRACE-INTACT (Neg); PROTEIN,URINE NEGATIVE (Neg); UROBILINOGEN,URINE 0.2 E.U/dL (0.2-1.0)
[2019-12-19 11:58] LABS: BASOPHILS % (AUTO) 0.2 % (0-1); EOSINOPHILS # (AUTO) 0.3 X10'3 (0-0.9); EOSINOPHILS % (AUTO) 3.4 % (0-6); HEMOGLOBIN 15.3 g/dl (14.0-17.9); LYMPHOCYTES # (AUTO) 2.3 X10'3 (1.1-4.8); MEAN CORPUSCULAR HEMOGLOBIN 33.2 PG (27.0-31.0); MEAN CORPUSCULAR HGB CONC 34.6 g/dL (33.0-36.5); MEAN CORPUSCULAR VOLUME 95.9 FL (78-98); MEAN PLATELET VOLUME 7.4 FL (7.4-10.4); MONOCYTES % (AUTO) 11.1 % (2-12); NEUTROPHILS # (AUTO) 5.6 X10'3 (1.8-7.7); NEUTROPHILS % (AUTO) 60.3 % (42-75); PLATELET COUNT 248 X10'3 (140-440); RED BLOOD COUNT 4.59 X10'6 (4.70-6.10); RED CELL DISTRIBUTION WIDTH 13.3 % (11.5-14.5); WHITE BLOOD COUNT 9.3 X10'3 (4.5-11.0)
[2019-12-19 12:04] LABS: UA COLLECTION TYPE CLN CATCH MIDSTREAM
[2019-12-19 12:09] LABS: BACTERIA,URINE NONE SEEN /HPF (Neg); RBC,URINE 0-2 /HPF (0-2); SQUAMOUS EPITHELIAL CELL,UR FEW /LPF (FEW); WBC,URINE 0-4 /HPF (0-4)
[2019-12-19 12:10] LABS: URINE AMPHETAMINE SCREEN POSITIVE (Neg); URINE BARBITUATE SCREEN NEGATIVE (Neg); URINE BENZODIAZEPINES SCREEN NEGATIVE (Neg); URINE CANNABINOID SCREEN POSITIVE (Neg); URINE COCAINE SCREEN NEGATIVE (Neg); URINE METHADONE SCREEN NEGATIVE (Neg); URINE OPIATE SCREEN NEGATIVE (Neg); URINE PHENCYCLIDINE SCREEN NEGATIVE (Neg)
[2019-12-19 12:21] LABS: ALANINE AMINOTRANSFERASE 17 U/L (12-78); ALBUMIN 3.6 G/DL (3.4-5.0); ALKALINE PHOSPHATASE 82 IU/L (46-116); ANION GAP 9 (8-16); ASPARTATE AMINO TRANSFERASE 17 U/L (10-37); BILIRUBIN,TOTAL 0.2 MG/DL (0.1-1.0); BLOOD UREA NITROGEN 18 MG/DL (7-18); BUN/CREATININE RATIO 20.7 (5.4-32.0); CALCIUM 8.7 MG/DL (8.5-10.1); CHLORIDE 105 MMOL/L (99-107); CREATININE 0.87 MG/DL (0.60-1.10); GLUCOSE 108 MG/DL (70-104); POTASSIUM 4.4 MMOL/L (3.5-5.1); SODIUM 139 MMOL/L (135-145); TOTAL CARBON DIOXIDE 24.7 MMOL/L (24-32); TOTAL PROTEIN 7.1 G/DL (6.4-8.2); eGFR > 90 ML/MIN
[2019-12-19 12:24] LABS: ACETAMINOPHEN < 2.0 UG/ML (10-30); VALPROATE 19.3 UG/ML (50-100)
[2019-12-19] MEDS ORDERED: normal saline 1000ML IV soln IVB ONE (13:05)
--- NOTE | 2019-12-19 15:31 | NUR ---
PATIENT MOVED FROM ER BED 10 TO ER OVERFLOW BED 23
[2019-12-19] MEDS ORDERED: diazepam 5mg tablet PO ONE (16:35)
[2019-12-19] MEDS ORDERED: LORazepam 1 MG tablet PO ONE (16:35)
[2019-12-19 16:38] LABS: ALBUMIN 3.3 G/DL (3.4-5.0); ANION GAP 11 (8-16); BLOOD UREA NITROGEN 16 MG/DL (7-18); BUN/CREATININE RATIO 15.2 (5.4-32.0); CALCIUM 7.9 MG/DL (8.5-10.1); CHLORIDE 105 MMOL/L (99-107); CREATININE 1.05 MG/DL (0.60-1.10); GLUCOSE 126 MG/DL (70-104); MAGNESIUM 1.6 MG/DL (1.5-2.4); SODIUM 143 MMOL/L (135-145); TOTAL CARBON DIOXIDE 27.5 MMOL/L (24-32); eGFR 78 ML/MIN
--- NOTE | 2019-12-19 17:00 | NUR ---
Pt restless, pt up and down, pacing, taking off clothes, putting them back on, to the bathroom multiple times. Pt cooperative and polite. Cooperative with lab draw and EKG
--- NOTE | 2019-12-19 19:30 | NUR ---
pt awakened from sleep to put his pants on, then back to sleep.
[2019-12-19] MEDS ORDERED: DIVA500T2 PO (20:24)
[2019-12-19] MEDS ORDERED: GABA-532 PO (20:25)
[2019-12-19] MEDS ORDERED: HYDR50TA65 PO (20:27)
[2019-12-19] MEDS ORDERED: OLAN15TA20 PO (20:28)
[2019-12-19] MEDS ORDERED: OLAN15TA17 PO (20:34)
[2019-12-19] MEDS ORDERED: PRAZ1CAP5 PO (20:50)
--- NOTE | 2019-12-19 21:20 | NUR ---
pt up to use the restroom, gait is steady, pt reports feeling tired but denies any other complaints.
--- NOTE | 2019-12-19 23:11 | NUR ---
pt up to use the restroom, gait steady. pt has no complaints at this time.
--- NOTE | 2019-12-20 01:38 | NUR ---
pt is snoring, no s/s of distress noted.
[2019-12-20] MEDS ORDERED: HYDR50TA65 PO (01:56)
[2019-12-20] MEDS ORDERED: hydrOXYzine 25 MG tablet PO PRN (02:10)
--- NOTE | 2019-12-20 04:00 | NUR ---
pt continues to sleep, no s/s of distress noted.
--- NOTE | 2019-12-20 04:28 | NUR ---
pt continues to sleep, no s/s of distress noted.
--- NOTE | 2019-12-20 06:37 | NUR ---
Patient is resting in bed peacefully at change of shift. No distress observed.
[2019-12-20] MEDS: divalproex sodium 500mg tablet.DR PO SCH ×2 (08:00→20:22)
--- NOTE | 2019-12-20 08:00 | NUR ---
Patient exhibiting racing thoughts and reports anxiety. Hydroxizine PRN given.
--- NOTE | 2019-12-20 08:15 | NUR ---
Patient ate all of his breakfast and was seen ambulating to the bathroom, enter the bathroom, promptly leave the bathroom and lay back down in his bed.
[2019-12-20] MEDS: gabapentin 300mg capsule PO SCH ×3 (08:21→20:22)
--- NOTE | 2019-12-20 09:00 | NUR ---
Patient is exhibiting pressured speech, currently denies SI, HI, A/VH. Encouraged patient to rest. Patient is currently laying down. No ditress observed.
--- NOTE | 2019-12-20 10:52 | NUR ---
Patient is restin in bed peav Addendum: 12/20/19 at 1052 by NEMO Patient is resting in bed peacefully at this time. No distress observed.
--- NOTE | 2019-12-20 12:30 | NUR ---
Patient is resting in bed peacefully at this time. No distress observed.
--- NOTE | 2019-12-20 14:28 | NUR ---
PT RESTING LAYING SUPINE, RESPIRATIONS EVEN AND UNLABORED. NO DISTRESS NOTED AT THIS TIME.
--- NOTE | 2019-12-20 15:30 | NUR ---
Patient is sitting up in bed. [place] [facility] is at bedside assessing the patient. No distress observed. Patient is heard having continued pressured speech.
--- NOTE | 2019-12-20 15:50 | NUR ---
[place] from [facility] states that he is currently placing patient on a 5150 and will re-evaluate as patient continues to sober.
--- NOTE | 2019-12-20 17:31 | NUR ---
Patient is resting in bed peacefully at this time. No distress observed
--- NOTE | 2019-12-20 20:00 | NUR ---
The patient has been resting on his bed and appears to be sleeping. When approached for the evening assessment he was very irritable and stated he was tired and did not want to answer questions.
[2019-12-20] MEDS ORDERED: olanzapine 10mg tablet PO SCH (21:00)
[2019-12-20] MEDS ORDERED: prazosin 1mg capsule PO SCH (21:00)
--- NOTE | 2019-12-20 22:13 | NUR ---
The patient appears to be sleeping.
--- NOTE | 2019-12-21 03:39 | NUR ---
The patient appears to be asleep
[2019-12-21 05:43] VITALS: BP 115/84
--- NOTE | 2019-12-21 05:43 | NUR ---
The patient appears to be sleeping
--- NOTE | 2019-12-21 06:58 | NUR ---
Patient sleeping on right side. No distress observed. Continue to monitor.
--- NOTE | 2019-12-21 08:10 | NUR ---
Patient states he is still feeling suicidal. Patient started talking about hearing voices and got very animated, almost manic. Patient awaiting breakfast. Continue to monitor.
[2019-12-21] MEDS: gabapentin 300mg capsule PO SCH (08:27)
[2019-12-21] MEDS: divalproex sodium 500mg tablet.DR PO SCH (08:27)
--- NOTE | 2019-12-21 09:57 | NUR ---
RN removed patient's heplock. Patient again very manic, standing up and waving his arms. Patient settled down and laid on the bed. Continue to monitor.
== END 2019-12-21 11:22 | disposition home or self-care (01) ==
LOC: ER 11:10
DX: T42.6X1A Poisoning by other antiepileptic and sedative-hypnotic drugs, accidental (unintentional), initial encounter (principal); R11.0 Nausea; R45.851 Suicidal ideations; F41.9 Anxiety disorder, unspecified; F31.9 Bipolar disorder, unspecified; F20.9 Schizophrenia, unspecified; F12.90 Cannabis use, unspecified, uncomplicated; F15.90 Other stimulant use, unspecified, uncomplicated; F11.90 Opioid use, unspecified, uncomplicated; Z60.2 Problems related to living alone; Z59.0 Homelessness; Z56.0 Unemployment, unspecified; Z79.899 Other long term (current) drug therapy; Y92.89 Other specified places as the place of occurrence of the external cause
CPT/HCPCS: 36415; 80048; 80053; 80164; 80305; 80329; 81001; 82140; 82330; 83735; 85025; 93005; 99285; J7030; Z7610

== ENCOUNTER 2020-01-25 16:20 | Emergency (ER) | payer MEDICAID ==
[~2020-01-25] VITALS: Ht 177.8 cm; Wt 81.0 kg
[~2020-01-25 16:20] MED LIST changes: -DIVA-76 PO; -OLAN15TA17 PO; +ONDA4TAB12 PO; +QUET100T33 PO; +QUET25TA34 PO
[2020-01-25 16:57] VITALS: BP 127/80
== END 2020-01-25 17:17 | disposition left against medical advice (07) ==
LOC: ER 16:21
DX: R07.89 Other chest pain (principal); F41.9 Anxiety disorder, unspecified; F31.9 Bipolar disorder, unspecified; F20.9 Schizophrenia, unspecified; F12.90 Cannabis use, unspecified, uncomplicated; F15.90 Other stimulant use, unspecified, uncomplicated; F11.90 Opioid use, unspecified, uncomplicated; Z59.0 Homelessness; Z56.0 Unemployment, unspecified
CPT/HCPCS: 93005; 99283

== ENCOUNTER 2020-04-01 16:16 | Emergency (ER) | payer MEDICAID ==
[~2020-04-01] VITALS: Ht 177.8 cm; Wt 74.2 kg
[2020-04-01 16:46] LABS: BASOPHILS # (AUTO) 0.1 X10'3 (0-0.2); EOSINOPHILS # (AUTO) 0.5 X10'3 (0-0.9); EOSINOPHILS % (AUTO) 5.8 % (0-6); HEMATOCRIT 41.3 % (42.0-52.0); HEMOGLOBIN 14.3 g/dl (14.0-17.9); LYMPHOCYTES # (AUTO) 2.6 X10'3 (1.1-4.8); LYMPHOCYTES % (AUTO) 32.7 % (21-51); MEAN CORPUSCULAR HEMOGLOBIN 33.9 PG (27.0-31.0); MEAN CORPUSCULAR HGB CONC 34.6 g/dL (33.0-36.5); MEAN CORPUSCULAR VOLUME 97.8 FL (78-98); MEAN PLATELET VOLUME 7.6 FL (7.4-10.4); MONOCYTES # (AUTO) 0.9 X10'3 (0-0.9); NEUTROPHILS # (AUTO) 3.9 X10'3 (1.8-7.7); NEUTROPHILS % (AUTO) 49.5 % (42-75); PLATELET COUNT 259 X10'3 (140-440); RED BLOOD COUNT 4.23 X10'6 (4.70-6.10); RED CELL DISTRIBUTION WIDTH 13.1 % (11.5-14.5)
--- NOTE | 2020-04-01 16:56 | NUR ---
SECURITY CALLED PT'S MOTHER REGARDING PT HAVING MARIJUANA AMONGST HIS BELONGINGS. REQUESTED THAT SHE CALL BACK TO PICK IT UP. SECURITY WILL HOLD UNTIL HEARING BACK FROM MOTHER.
[2020-04-01 16:58] LABS: ALANINE AMINOTRANSFERASE 22 U/L (12-78); ALBUMIN 3.8 G/DL (3.4-5.0); ALBUMIN/GLOBULIN RATIO 1.3 (1.1-1.5); ALKALINE PHOSPHATASE 83 IU/L (46-116); ANION GAP 10 (8-16); ASPARTATE AMINO TRANSFERASE 16 U/L (10-37); BILIRUBIN,TOTAL 0.2 MG/DL (0.1-1.0); BLOOD UREA NITROGEN 26 MG/DL (7-18); BUN/CREATININE RATIO 24.5 (5.4-32.0); CALCIUM 8.4 MG/DL (8.5-10.1); CHLORIDE 105 MMOL/L (99-107); CREATININE 1.06 MG/DL (0.60-1.10); ETHANOL < 0.010 GM/DL (0.0-0.010); GLUCOSE 141 MG/DL (70-104); POTASSIUM 3.8 MMOL/L (3.5-5.1); SODIUM 141 MMOL/L (135-145); TOTAL CARBON DIOXIDE 26.4 MMOL/L (24-32); TOTAL PROTEIN 6.7 G/DL (6.4-8.2); eGFR 77 ML/MIN
--- NOTE | 2020-04-01 17:38 | NUR ---
PATIENT ARRIVED FROM MAIN ER AND PLACED IN ROOM 25. NO DISTRESS NOTED AT THIS TIME. BELONGINGS PLACED IN LOCKER.
[2020-04-01 17:51] LABS: URINE AMPHETAMINE SCREEN POSITIVE (Neg); URINE BARBITUATE SCREEN NEGATIVE (Neg); URINE BENZODIAZEPINES SCREEN NEGATIVE (Neg); URINE CANNABINOID SCREEN POSITIVE (Neg); URINE COCAINE SCREEN NEGATIVE (Neg); URINE METHADONE SCREEN NEGATIVE (Neg); URINE OPIATE SCREEN NEGATIVE (Neg); URINE PHENCYCLIDINE SCREEN NEGATIVE (Neg)
--- NOTE | 2020-04-01 18:45 | NUR ---
Pt. laying in bed, resting quietly and comfortably.
[2020-04-01] MEDS ORDERED: PRAZ1CAP5 PO (19:22)
[2020-04-01] MEDS ORDERED: HYDR50TA65 PO (19:22)
[2020-04-01] MEDS ORDERED: QUET100T33 PO (19:22)
[2020-04-01] MEDS ORDERED: QUET300T19 PO (19:22)
[2020-04-01] MEDS ORDERED: GABA300C PO (19:22)
--- NOTE | 2020-04-01 19:45 | NUR ---
Pt. in bed, sleeping/resting. He briefly appeared to be shiverring. Extra blankets offered but pt. denied.
[2020-04-01] MEDS ORDERED: hydrOXYzine 25 MG tablet PO PRN ×2 (19:55→19:57)
--- NOTE | 2020-04-01 20:45 | NUR ---
Pt. in bed, sleeping/resting comfortably.
[2020-04-01] MEDS ORDERED: quetiapine 100mg tablet PO SCH (21:00)
[2020-04-01] MEDS ORDERED: prazosin 1mg capsule PO SCH (21:00)
--- NOTE | 2020-04-01 21:09 | NUR ---
CAROLINAH RN at bedside evaluating pt.
[2020-04-01] MEDS: quetiapine 100mg tablet PO SCH (21:30)
[2020-04-01] MEDS: gabapentin 300mg capsule PO SCH (21:31)
--- NOTE | 2020-04-01 21:31 | NUR ---
HS meds given and tolerated well. Fluids encouraged and pt. consumed 480cc at this time.
--- NOTE | 2020-04-01 23:01 | NUR ---
Received calls from both [facility] and [facility]. Report given re pt per request by both facilities. Order for TSH and UA obtained from ED provider to be included in placement qualifications. Results to be forwarded to these facilities.
[2020-04-01 23:13] LABS: CLARITY,URINE CLEAR (Clear); COLOR,URINE YELLOW (Yellow); GLUCOSE, URINE NEGATIVE (Neg); KETONES,URINE NEGATIVE (Neg); LEUKOCYTE ESTERASE ,URINE NEGATIVE (Neg); NITRITES, URINE NEGATIVE (Neg); OCCULT BLOOD,URINE TRACE-INTACT (Neg); PROTEIN,URINE NEGATIVE (Neg); UROBILINOGEN,URINE 0.2 E.U/dL (0.2-1.0)
[2020-04-01 23:15] LABS: UA COLLECTION TYPE URINAL
[2020-04-01 23:23] LABS: BACTERIA,URINE NONE SEEN /HPF (Neg); CAL OXALATE CRYSTALS FEW /HPF (NEGATIVE); MUCUS STRANDS FEW /LPF (Neg); RBC,URINE NONE SEEN /HPF (0-2); SQUAMOUS EPITHELIAL CELL,UR FEW /LPF (FEW); WBC,URINE NONE SEEN /HPF (0-4)
--- NOTE | 2020-04-01 23:31 | NUR ---
Spoke with Lucia from [facility]. Pt. has been accepted to facility by BRITTANY Arreola for 04/02/20, pending discharge. Facility to call in the AM for grain picker time.
--- NOTE | 2020-04-02 00:45 | NUR ---
Pt. continues to sleep in bed comfortably.
--- NOTE | 2020-04-02 01:45 | NUR ---
Pt. in bed, sleeping/resting comfortably.
--- NOTE | 2020-04-02 02:45 | NUR ---
Pt. continues to sleep. He is able to repos self in bed.
--- NOTE | 2020-04-02 03:45 | NUR ---
Pt. continues to sleep.
--- NOTE | 2020-04-02 04:30 | NUR ---
Pt. in bed, sleeping/resting comfortably.
--- NOTE | 2020-04-02 05:33 | NUR ---
VS taken at this time and WNL. Pt. supervised while using the bathroom for safety. Pt. also provided with fluids at this time.
[2020-04-02 05:37] VITALS: BP 126/72
--- NOTE | 2020-04-02 06:38 | NUR ---
Received aptient in bed, eresting peacefully on his left side with head slightly elevated, no distress observed.
[2020-04-02] MEDS: gabapentin 300mg capsule PO SCH ×2 (08:12→13:17)
[2020-04-02] MEDS: quetiapine 100mg tablet PO SCH ×2 (08:12→13:17)
--- NOTE | 2020-04-02 08:33 | NUR ---
Spoke to Stacey at [facility] office and this patient is accepted at [facility] pending discharge there. She states she will reach out to [facility] after morning treatment planning. Patient ate all of his breakfast and is now resting in bed peacefully on right side in a semi-fowlers position. This RN asked if he remembered her from last visit, he states, "I don't know you." Patient continues to have tangential and pressured speech. Will continue to monitor.
--- NOTE | 2020-04-02 10:18 | NUR ---
Patient remains resting in bed audibly snoring on right side. No distress observed.
--- NOTE | 2020-04-02 11:24 | NUR ---
Patient continues to rest in bed peacefully. Gas Appliance Adjuster distress observed.
--- NOTE | 2020-04-02 12:12 | NUR ---
Patient is resting in bed peacefully. He repostions self. Audible snoring with no respiratory distress observed.
--- NOTE | 2020-04-02 13:00 | NUR ---
lunch tray not received for this patient. Called dietary who states they will send one up.
--- NOTE | 2020-04-02 13:54 | NUR ---
Received phone call from [facility] and patient will be picked up in 30 minutes.
--- NOTE | 2020-04-02 14:45 | NUR ---
Patient d/c'd from the unit, ambulating self, no distress observed. He is accompanied by Amrik, pickup driver from [facility] and security. Patient is still endorsing SI and AH. His plan is to "freeze himself". All items and valuables inventoried and in patient's possession at time of discharge. All paperwork and plan of care discussed with patient. questions were answered and patient verbalized understanding. Patient denies tobacco use. Original 6200 paperwork given to pickup driver.
== END 2020-04-02 14:45 | disposition home or self-care (01) ==
LOC: ER 16:16
DX: R45.851 Suicidal ideations (principal); F20.9 Schizophrenia, unspecified; F41.9 Anxiety disorder, unspecified; F31.9 Bipolar disorder, unspecified; F17.200 Nicotine dependence, unspecified, uncomplicated; F12.90 Cannabis use, unspecified, uncomplicated; F15.90 Other stimulant use, unspecified, uncomplicated; F11.90 Opioid use, unspecified, uncomplicated; Z72.89 Other problems related to lifestyle; Z60.2 Problems related to living alone; Z56.0 Unemployment, unspecified; Z59.0 Homelessness; Z79.899 Other long term (current) drug therapy
CPT/HCPCS: 36415; 80053; 80305; 80320; 81001; 84443; 85025; 99285; Q0177

== ENCOUNTER 2020-04-26 09:18 | Emergency (ER) | payer MEDICAID ==
[~2020-04-26] VITALS: Ht 177.8 cm; Wt 76.0 kg
[~2020-04-26 09:18] MED LIST changes: -GABA-532 PO; +GABA300C PO; -ONDA4TAB12 PO; -QUET25TA34 PO; +QUET300T19 PO
[2020-04-26] MEDS ORDERED: LORazepam 2 mg/ml vial IM ONE (10:25)
--- NOTE | 2020-04-26 11:20 | NUR ---
Pt medicated with ativan, belongings list completed by [facility] and pt changed into green scrubs. Pt cooperative and laying on gurney with eyes closed and lights off.
[2020-04-26 11:45] LABS: BASOPHILS % (AUTO) 0.1 % (0-1); EOSINOPHILS % (AUTO) 0.1 % (0-6); HEMATOCRIT 40.4 % (42.0-52.0); HEMOGLOBIN 13.7 g/dl (14.0-17.9); LYMPHOCYTES # (AUTO) 1.2 X10'3 (1.1-4.8); LYMPHOCYTES % (AUTO) 7.9 % (21-51); MEAN CORPUSCULAR HEMOGLOBIN 33.4 PG (27.0-31.0); MEAN CORPUSCULAR HGB CONC 33.9 g/dL (33.0-36.5); MEAN CORPUSCULAR VOLUME 98.4 FL (78-98); MEAN PLATELET VOLUME 7.8 FL (7.4-10.4); MONOCYTES # (AUTO) 1.2 X10'3 (0-0.9); MONOCYTES % (AUTO) 8.1 % (2-12); NEUTROPHILS # (AUTO) 12.3 X10'3 (1.8-7.7); NEUTROPHILS % (AUTO) 83.8 % (42-75); PLATELET COUNT 285 X10'3 (140-440); RED CELL DISTRIBUTION WIDTH 13.3 % (11.5-14.5); WHITE BLOOD COUNT 14.6 X10'3 (4.5-11.0)
[2020-04-26 12:06] LABS: ACETAMINOPHEN < 2.0 UG/ML (10-30); ALANINE AMINOTRANSFERASE 26 U/L (12-78); ALBUMIN 4.3 G/DL (3.4-5.0); ALBUMIN/GLOBULIN RATIO 1.3 (1.1-1.5); ALKALINE PHOSPHATASE 82 IU/L (46-116); ANION GAP 13 (8-16); ASPARTATE AMINO TRANSFERASE 21 U/L (10-37); BILIRUBIN,TOTAL 0.4 MG/DL (0.1-1.0); BLOOD UREA NITROGEN 29 MG/DL (7-18); BUN/CREATININE RATIO 29.3 (5.4-32.0); CALCIUM 8.4 MG/DL (8.5-10.1); CHLORIDE 107 MMOL/L (99-107); CREATININE 0.99 MG/DL (0.60-1.10); GLUCOSE 105 MG/DL (70-104); POTASSIUM 3.3 MMOL/L (3.5-5.1); SODIUM 143 MMOL/L (135-145); TOTAL PROTEIN 7.5 G/DL (6.4-8.2); eGFR 84 ML/MIN
[2020-04-26] MEDS ORDERED: potassium Cl 20 mEq SR tablet PO ONE (12:35)
--- NOTE | 2020-04-26 13:00 | NUR ---
Resting in bed awake
--- NOTE | 2020-04-26 13:43 | NUR ---
Refusing tp get urine sample
--- NOTE | 2020-04-26 14:00 | NUR ---
Resting in bed awake
--- NOTE | 2020-04-26 14:00 | NUR ---
I gave patient a specimin cup and asked for a urine sample, patient said he would have to do it in bed. Patient acted like he was peeing in cup under the covers. Handed my back the cup with nothing in it. Will not get up to go use the restroom to get a sample.
--- NOTE | 2020-04-26 15:00 | NUR ---
Resting in bed awake
--- NOTE | 2020-04-26 15:30 | NUR ---
Resting in bed
--- NOTE | 2020-04-26 16:00 | NUR ---
In bed resting
--- NOTE | 2020-04-26 17:00 | NUR ---
In bed resting
[2020-04-26 17:37] LABS: CLARITY,URINE CLEAR (Clear); COLOR,URINE STRAW (Yellow); GLUCOSE, URINE NEGATIVE (Neg); KETONES,URINE 40 mg/dl (Neg); LEUKOCYTE ESTERASE ,URINE NEGATIVE (Neg); NITRITES, URINE NEGATIVE (Neg); OCCULT BLOOD,URINE SMALL (Neg); PH,URINE 5.5 (4.8-8.0); PROTEIN,URINE NEGATIVE (Neg); UROBILINOGEN,URINE 0.2 E.U/dL (0.2-1.0)
[2020-04-26 17:41] LABS: UA COLLECTION TYPE STRAIGHT CATH
[2020-04-26 17:43] LABS: HYALINE CASTS 0-3 /LPF (NEGATIVE); MUCUS STRANDS MANY /LPF (Neg); RENAL CELLS, URINE FEW /HPF; SQUAMOUS EPITHELIAL CELL,UR FEW /LPF (FEW); TRANSITIONAL EPI CELLS,URINE FEW /HPF
[2020-04-26 17:44] LABS: BACTERIA,URINE NONE SEEN /HPF (Neg); SPERM FEW /HPF (NEGATIVE); WBC,URINE 0-4 /HPF (0-4)
[2020-04-26 17:52] LABS: URINE AMPHETAMINE SCREEN POSITIVE (Neg); URINE BARBITUATE SCREEN NEGATIVE (Neg); URINE BENZODIAZEPINES SCREEN NEGATIVE (Neg); URINE CANNABINOID SCREEN POSITIVE (Neg); URINE COCAINE SCREEN NEGATIVE (Neg); URINE METHADONE SCREEN NEGATIVE (Neg); URINE OPIATE SCREEN NEGATIVE (Neg); URINE PHENCYCLIDINE SCREEN NEGATIVE (Neg)
--- NOTE | 2020-04-26 18:00 | NUR ---
In bed resting
--- NOTE | 2020-04-26 18:49 | NUR ---
PT WAS MOVED OVER TO MAIN ER DUE TO STAFFING - DINNER TRAY HAS BEEN GIVEN TO PATIENT.
[2020-04-26] MEDS ORDERED: hydrOXYzine 25 MG tablet PO PRN (18:50)
--- NOTE | 2020-04-26 19:30 | NUR ---
Refaxed the summary report with medical clearance statement and the Toxicology lab results to the [place] office for [facility].
--- NOTE | 2020-04-26 19:43 | NUR ---
[facility] AT BEDSIDE
--- NOTE | 2020-04-26 20:13 | NUR ---
SPOKE WITH PT AND PHARMACY REGARDING SEROQUEL DOSAGE CLAIFICATION. PT STATES HE TAKES IT "MULTIPLE TIMES A DAY. WHATEVER I TOLD THE OTHER NURSE IS WHAT I TAKE." SPOKE WITH PHARMACIST CARLOS WHO STATES HE WILL ADJUST ACCORDINGLY.
--- NOTE | 2020-04-26 20:15 | NUR ---
PT APPEARS TO BE SLEEPING. REQUESTED URINAL AND IS NOW BACK IN BED. WILL CONTINUE TO MONITOR.
--- NOTE | 2020-04-26 20:22 | NUR ---
Spoke with Santosh from [facility]- states he is going to place pt on 5150 for DTS. pt aware and is agreeable to plan
[2020-04-26] MEDS ORDERED: quetiapine 100mg tablet PO SCH (21:00)
[2020-04-26] MEDS ORDERED: prazosin 1mg capsule PO SCH (21:00)
[2020-04-26] MEDS: gabapentin 300mg capsule PO SCH (22:31)
--- NOTE | 2020-04-26 23:02 | NUR ---
[facility] called-state they need etoh and tsh level before placement can be confirmed. ordered and lab states they will run results. will fax results to [facility] when theyre available for pt placement.
[2020-04-26 23:32] LABS: ETHANOL < 0.010 GM/DL (0.0-0.010)
--- NOTE | 2020-04-27 00:11 | NUR ---
SPOKE WITH [facility] REGARDING ADMISSION. STATES HE WILL PRESENT PT CASE TO THEIR DOCTOR AND WILL CALL BACK WITH PENDING ADMISSION.
--- NOTE | 2020-04-27 00:40 | NUR ---
PT WAS IN BED WITH THE CURTAIN HALF DRAWN AND THE GLASS DOORS TO THE ROOM SHUT. PT GOT UP OUT OF BED AND DIDN'T REALIZE THAT THE DOORS WERE SHUT AND RAN INTO THE DOOR. HE THEN DROPPED DOWN TO HIS KNEES AND LAID ON THE FLOOR. PT APPEARS DROWSY, NO OBVIOUS INJURY NOTED AND PT IS ASSISTED BACK TO BED. VITALS WILL BE TAKEN AND CHARTED. AWARE.
[2020-04-27 01:10] VITALS: BP 105/52
--- NOTE | 2020-04-27 03:34 | NUR ---
PT SLEEPING AT THIS TIME. HE SELF POSITIONS FREQUENTLY. NO DISTRESS NOTED.
--- NOTE | 2020-04-27 05:37 | NUR ---
pt appears to be sleeping on left side. no s/s distress. pt respirations even and unlabored. will continue to monitor.
--- NOTE | 2020-04-27 06:44 | NUR ---
PT UP TO BR
--- NOTE | 2020-04-27 07:20 | NUR ---
ambulated to br without asst. cooperative and appr with care
[2020-04-27] MEDS ORDERED: quetiapine 100mg tablet PO SCH (08:00)
[2020-04-27] MEDS: gabapentin 300mg capsule PO SCH (08:30)
--- NOTE | 2020-04-27 08:37 | NUR ---
[facility] ETA 1130.
--- NOTE | 2020-04-27 09:12 | NUR ---
pt up frequently, restless. atarax and am meds given
--- NOTE | 2020-04-27 11:48 | NUR ---
[facility] ARRIVED TO TRANSPORT PT TO [facility] [place]. PT BECAME AGGITATED AND REQUESTED TO GO THROUGH HIS BACK PACK. PT GIVEN BACK PACK BY PRIMARY MATERIAL CONTROL ASSOCIATE CALLED FOR STAND BY. PT WAS FRANTICULY GOING THROUGH THE POCKETS OF HIS BACK PACK AND PULLED OUT A LARGE BAGGIE OF WHITE POWDER. PT STATES IT BACKING SODA AND HE USESES IT TO BRUSH HIS TEETH. PT BECAME UPSET WHEN BAG WAS TAKEN FROM HIM. BAG OF WHITE TAKEN BY SECURITY AND WASTED IN THE JUG IN THE MED ROOM PT ESCORTED TO TRANSPORT CAR WITH SECURITY, BELONGINGS TAKEN BY OUTBOARD MOTORBOAT OPERATOR
== END 2020-04-27 12:01 ==
LOC: ER 09:19
DX: R45.851 Suicidal ideations (principal); F20.9 Schizophrenia, unspecified; F31.9 Bipolar disorder, unspecified; F41.9 Anxiety disorder, unspecified; F12.90 Cannabis use, unspecified, uncomplicated; F15.90 Other stimulant use, unspecified, uncomplicated; F11.90 Opioid use, unspecified, uncomplicated; Z72.89 Other problems related to lifestyle; Z60.2 Problems related to living alone; Z56.0 Unemployment, unspecified; Z59.0 Homelessness; Z79.899 Other long term (current) drug therapy
CPT/HCPCS: 36415; 71045; 80053; 80305; 80320; 80329; 81001; 84443; 85025; 96372; 99285; J2060; Q0177

== ENCOUNTER 2020-05-14 14:13 | Emergency (ER) | payer MEDICAID ==
[~2020-05-14] VITALS: Ht 177.8 cm; Wt 70.5 kg
[2020-05-14] MEDS ORDERED: LORazepam 2 mg/ml vial IM ONE (14:40)
[2020-05-14] MEDS ORDERED: LORazepam 1 MG tablet PO ONE ×2 (14:45→22:30)
--- NOTE | 2020-05-14 14:56 | NUR ---
Pt moved to overflow bed 24. Pt is anxious, paranoid but cooperative. Verbal order from Beltran RICHARDSON for 1 mg ativan PO.
--- NOTE | 2020-05-14 14:57 | NUR ---
Pt is lying in bed talking to himself, pt endorses SI but is unable to state a plan or much more. Pt appears to be distracted by internal stimuli and unable to answer most questions. Pt is unable to provide urine at this time. Pt given pitcher of water and encouraged to drink.
[2020-05-14 17:01] LABS: BASOPHILS % (AUTO) 0.3 % (0-1); EOSINOPHILS # (AUTO) 0.1 X10'3 (0-0.9); EOSINOPHILS % (AUTO) 0.8 % (0-6); HEMOGLOBIN 16.4 g/dl (14.0-17.9); LYMPHOCYTES # (AUTO) 1.5 X10'3 (1.1-4.8); LYMPHOCYTES % (AUTO) 11.8 % (21-51); MEAN CORPUSCULAR HEMOGLOBIN 33.6 PG (27.0-31.0); MEAN CORPUSCULAR HGB CONC 34.9 g/dL (33.0-36.5); MEAN CORPUSCULAR VOLUME 96.1 FL (78-98); MEAN PLATELET VOLUME 7.3 FL (7.4-10.4); MONOCYTES % (AUTO) 7.9 % (2-12); NEUTROPHILS # (AUTO) 9.8 X10'3 (1.8-7.7); NEUTROPHILS % (AUTO) 79.2 % (42-75); PLATELET COUNT 305 X10'3 (140-440); RED BLOOD COUNT 4.89 X10'6 (4.70-6.10); WHITE BLOOD COUNT 12.4 X10'3 (4.5-11.0)
[2020-05-14 17:13] LABS: ALANINE AMINOTRANSFERASE 25 U/L (12-78); ALBUMIN 4.3 G/DL (3.4-5.0); ALBUMIN/GLOBULIN RATIO 1.2 (1.1-1.5); ALKALINE PHOSPHATASE 96 IU/L (46-116); ANION GAP 9 (8-16); ASPARTATE AMINO TRANSFERASE 14 U/L (10-37); BILIRUBIN,TOTAL 1.2 MG/DL (0.1-1.0); BLOOD UREA NITROGEN 28 MG/DL (7-18); BUN/CREATININE RATIO 18.3 (5.4-32.0); CALCIUM 8.5 MG/DL (8.5-10.1); CHLORIDE 95 MMOL/L (99-107); CREATININE 1.53 MG/DL (0.60-1.10); GLUCOSE 130 MG/DL (70-104); POTASSIUM 3.6 MMOL/L (3.5-5.1); SODIUM 131 MMOL/L (135-145); TOTAL CARBON DIOXIDE 26.9 MMOL/L (24-32); TOTAL PROTEIN 7.9 G/DL (6.4-8.2); eGFR 50 ML/MIN
[2020-05-14 17:17] LABS: ETHANOL < 0.010 GM/DL (0.0-0.010)
--- NOTE | 2020-05-14 17:26 | NUR ---
Pt continues to sleep, denies complaints, no s/s of distress noted.
[2020-05-14] MEDS ORDERED: normal saline 1000ML IV soln IVB ONE (18:20)
--- NOTE | 2020-05-14 18:46 | NUR ---
Patient is sitting at bedside eating dinner. Patient is cooperative with this report writer at this time. UA has not been acquired at this time. Patient not voiding. A two litre bolus of N/S order is written, this will be done when circomstances allow.
--- NOTE | 2020-05-14 18:56 | NUR ---
UP TO BR TO VOID, AMBULATING WITH STEADY GAIT
--- NOTE | 2020-05-14 19:55 | NUR ---
Two liter N/S bolus is running. Plan is to get a urine sample for a UA when patient can void. Patient is now sleeping quietly in a mid fowlers position.
[2020-05-14] MEDS ORDERED: hydrOXYzine 25 MG tablet PO PRN (20:10)
--- NOTE | 2020-05-14 20:40 | NUR ---
Pt resting peacfully supine in bed with iv ns bolus infusing , patent to the right wrist patent. Bolus completed and tubing removed from bedside . plan of care updated with patient , who then pulled the blanket over his head .
--- NOTE | 2020-05-14 20:46 | NUR ---
pt up out of bed to bathroom to void . speciman sent to lab
[2020-05-14] MEDS: quetiapine 100mg tablet PO SCH (21:00)
[2020-05-14] MEDS ORDERED: quetiapine 100mg tablet PO SCH ×2 (21:00→22:07)
[2020-05-14 21:14] LABS: URINE AMPHETAMINE SCREEN POSITIVE (Neg); URINE BARBITUATE SCREEN NEGATIVE (Neg); URINE BENZODIAZEPINES SCREEN NEGATIVE (Neg); URINE CANNABINOID SCREEN POSITIVE (Neg); URINE COCAINE SCREEN NEGATIVE (Neg); URINE METHADONE SCREEN NEGATIVE (Neg); URINE OPIATE SCREEN NEGATIVE (Neg); URINE PHENCYCLIDINE SCREEN NEGATIVE (Neg)
[2020-05-14] MEDS: gabapentin 300mg capsule PO SCH (21:16)
[2020-05-14] MEDS: prazosin 1mg capsule PO SCH (21:16)
--- NOTE | 2020-05-14 21:34 | NUR ---
Patient has eaten a turkey sandwich and a milk. He is up to bathroom. He has been provided with a tooth brush and tooth paste.
--- NOTE | 2020-05-14 22:17 | NUR ---
Patient is supine in bed, awake with a complaint of anxiety and can't sleep. Patient is responding to internal stimuli. Poor eye contact, patient restates "I can't believe I'm not ." Patient is alert, paranoid, he presents as delusional at times. This patient spent approximately 10 minutes in bathroom earlier, flushing toilet multiple times.
[2020-05-14] MEDS ORDERED: traZODone 50mg tablet PO ONE ×2 (22:30)
--- NOTE | 2020-05-14 23:57 | NUR ---
Patient is sleeping quietly, low fowlers position. In view from nursing station. Patient self repositions.
--- NOTE | 2020-05-15 00:10 | NUR ---
Patient sleeping on left side, bed in low fowlers position. Color good. No distress.
--- NOTE | 2020-05-15 01:04 | NUR ---
Breaking primary RN, pt. resting quietly on back, respirations WNL even and unlabored, no signs of distress.
--- NOTE | 2020-05-15 03:00 | NUR ---
Patient sleeping, low fowlers position, partially on left side. Patient self repositions.
--- NOTE | 2020-05-15 04:00 | NUR ---
Patient sleeping. In view from nursing station.
--- NOTE | 2020-05-15 05:38 | NUR ---
Patient sleeping, low fowlers in bed.
--- NOTE | 2020-05-15 06:30 | NUR ---
pt is sleeping
--- NOTE | 2020-05-15 07:30 | NUR ---
pt is sleeping
--- NOTE | 2020-05-15 08:00 | NUR ---
pt is resting in bed. eating breakfast
[2020-05-15] MEDS: gabapentin 300mg capsule PO SCH ×3 (08:18→20:10)
[2020-05-15] MEDS: quetiapine 100mg tablet PO SCH ×3 (08:18→20:10)
--- NOTE | 2020-05-15 09:00 | NUR ---
pt spoke with [facility]
--- NOTE | 2020-05-15 10:00 | NUR ---
pt is pacing around. starring at the clock. making weird face expression in an attempt look younger.
--- NOTE | 2020-05-15 11:00 | NUR ---
pt is pacing around.
--- NOTE | 2020-05-15 12:07 | NUR ---
pt is laying down resting
--- NOTE | 2020-05-15 13:00 | NUR ---
PT IS SLEEPING NO CONCERNS AT THIS TIME
--- NOTE | 2020-05-15 14:00 | NUR ---
PT IS SLEEPING NO CONCERNS AT THIS TIME
--- NOTE | 2020-05-15 15:00 | NUR ---
PT IS SLEEPING NO CONCERNS AT THIS TIME
--- NOTE | 2020-05-15 16:00 | NUR ---
PT IS SLEEPING NO CONCERNS AT THIS TIME
--- NOTE | 2020-05-15 17:00 | NUR ---
PT IS SLEEPING NO CONCERNS AT THIS TIME
[2020-05-15 18:54] LABS: CLARITY,URINE CLEAR (Clear); COLOR,URINE YELLOW (Yellow); GLUCOSE, URINE NEGATIVE (Neg); KETONES,URINE NEGATIVE (Neg); LEUKOCYTE ESTERASE ,URINE NEGATIVE (Neg); NITRITES, URINE NEGATIVE (Neg); OCCULT BLOOD,URINE TRACE-INTACT (Neg); PH,URINE 5.5 (4.8-8.0); PROTEIN,URINE NEGATIVE (Neg); UROBILINOGEN,URINE 0.2 E.U/dL (0.2-1.0)
[2020-05-15 18:56] LABS: UA COLLECTION TYPE VOIDED
[2020-05-15 18:59] LABS: BACTERIA,URINE NONE SEEN /HPF (Neg); RBC,URINE 0-2 /HPF (0-2); SQUAMOUS EPITHELIAL CELL,UR FEW /LPF (FEW); WBC,URINE NONE SEEN /HPF (0-4)
[2020-05-15] MEDS ORDERED: quetiapine 100mg tablet PO SCH (19:00)
--- NOTE | 2020-05-15 19:09 | NUR ---
Attempted one to one with the patient who gave bizarre and conflicting statements. He is disorganized and appears to be responding to internal stimuli. He stated that he was not taking his medications prior to coming to the ER explaining, "My mother wouldn't let me take them" but was very guarded about any kind of further explanation. He admitst to drug use but denies ETOH use. He had a urine sent to the lab. He has been seen by [facility] and is pending placement. Spoke with [facility] [place] office and they report that there currently is not a bed available for the patient.
[2020-05-15] MEDS: prazosin 1mg capsule PO SCH (20:09)
--- NOTE | 2020-05-15 21:15 | NUR ---
The patient is currently resting on his bed.
--- NOTE | 2020-05-15 22:35 | NUR ---
The patient appears to be sleeping
--- NOTE | 2020-05-15 23:58 | NUR ---
The patient appears to be sleeping
--- NOTE | 2020-05-16 03:08 | NUR ---
The patient appears to be sleeping
--- NOTE | 2020-05-16 04:12 | NUR ---
Assumed care from ABBY Mack. Pt reported to have been cooperative this shift. Awaiting placement to in psych.
--- NOTE | 2020-05-16 04:24 | NUR ---
Pt sleeping, intermittently snoring softly. currently lying on his right side with blankets covering to his shouders. RR 14 and unlabored. Sitter and RN within view of Pt aat.
--- NOTE | 2020-05-16 06:30 | NUR ---
pt is sleeping. no concerns
--- NOTE | 2020-05-16 07:30 | NUR ---
pt is sleeping. no concerns
[2020-05-16] MEDS: gabapentin 300mg capsule PO SCH ×2 (08:30→13:00)
[2020-05-16] MEDS: quetiapine 100mg tablet PO SCH ×2 (08:31→13:00)
--- NOTE | 2020-05-16 08:34 | NUR ---
pt is awake and eating breakfast
--- NOTE | 2020-05-16 08:34 | NUR ---
pt is sleeping. no concerns
--- NOTE | 2020-05-16 09:12 | NUR ---
BREAKING PRIMARY RN, PT IS SUPINE IN BED, SLEEPING, REGULAR BREATHING OBSERVED, WILL CONT TO MONITOR
--- NOTE | 2020-05-16 10:44 | NUR ---
breaking primary rn, pt is asleep, regular breathing observed
--- NOTE | 2020-05-16 13:41 | NUR ---
Breaking Primary RN, pt is sleeping on right side, regular breathing apparent, will continue to monitor
--- NOTE | 2020-05-16 14:00 | NUR ---
pt is sleeping. no concerns
--- NOTE | 2020-05-16 15:00 | NUR ---
pt is sleeping. no concerns
--- NOTE | 2020-05-16 16:00 | NUR ---
pt is sleeping. no concerns
--- NOTE | 2020-05-16 17:00 | NUR ---
pt is sleeping. no concerns
[2020-05-16 17:48] VITALS: BP 114/74
--- NOTE | 2020-05-16 18:00 | NUR ---
pt is sleeping. no concerns
== END 2020-05-16 18:21 ==
LOC: ER 14:14
DX: R45.851 Suicidal ideations (principal); F32.9 Major depressive disorder, single episode, unspecified; R44.1 Visual hallucinations; R44.0 Auditory hallucinations; R79.89 Other specified abnormal findings of blood chemistry; E86.0 Dehydration; F41.9 Anxiety disorder, unspecified; F12.90 Cannabis use, unspecified, uncomplicated; F15.90 Other stimulant use, unspecified, uncomplicated; F11.90 Opioid use, unspecified, uncomplicated; Z60.2 Problems related to living alone; Z59.0 Homelessness; Z56.0 Unemployment, unspecified; Z79.899 Other long term (current) drug therapy
CPT/HCPCS: 36415; 80053; 80305; 80320; 81001; 85025; 96360; 96361; 99285; J7030

== ENCOUNTER 2020-06-16 15:40 | Emergency (ER) | payer MEDICAID ==
[~2020-06-16] VITALS: Ht 177.8 cm; Wt 76.8 kg
[2020-06-16 15:50] VITALS: BP 114/74
[2020-06-16] MEDS ORDERED: HYDR25CA PO (16:19)
[2020-06-16] MEDS ORDERED: hyDROXYzine 50 mg/ml injection ***IM only IM ONE (16:20)
== END 2020-06-16 16:57 | disposition home or self-care (01) ==
LOC: ER 15:41
DX: F41.9 Anxiety disorder, unspecified (principal); F31.9 Bipolar disorder, unspecified; F20.9 Schizophrenia, unspecified; F12.90 Cannabis use, unspecified, uncomplicated; F15.90 Other stimulant use, unspecified, uncomplicated; F11.90 Opioid use, unspecified, uncomplicated; Z60.2 Problems related to living alone; Z59.0 Homelessness; Z56.0 Unemployment, unspecified; Z79.899 Other long term (current) drug therapy
CPT/HCPCS: 96372; 99283; J3410

== ENCOUNTER 2020-06-19 18:21 | Emergency (ER) | payer MEDICAID ==
[~2020-06-19] VITALS: Ht 177.8 cm; Wt 77.3 kg
[~2020-06-19 18:21] MED LIST changes: +HYDR25CA PO
[2020-06-19 18:31] VITALS: BP 126/83
[2020-06-19] MEDS ORDERED: HYDR25CA PO (19:04)
[2020-06-19] MEDS ORDERED: hyDROXYzine 50 mg/ml injection ***IM only IM ONE (19:15)
== END 2020-06-19 19:52 | disposition home or self-care (01) ==
LOC: ER 18:22
DX: F41.9 Anxiety disorder, unspecified (principal); F31.9 Bipolar disorder, unspecified; F12.90 Cannabis use, unspecified, uncomplicated; F15.90 Other stimulant use, unspecified, uncomplicated; F11.90 Opioid use, unspecified, uncomplicated; Z72.89 Other problems related to lifestyle; Z60.2 Problems related to living alone; Z56.0 Unemployment, unspecified; Z59.0 Homelessness; Z79.899 Other long term (current) drug therapy
CPT/HCPCS: 96372; 99283; J3410

== ENCOUNTER 2020-06-21 15:32 | Emergency (ER) | payer MEDICAID ==
[~2020-06-21] VITALS: Ht 177.8 cm; Wt 77.3 kg
[2020-06-21 15:50] VITALS: BP 132/72
[2020-06-21] MEDS ORDERED: ALPRAZolam 0.5mg tablet PO ONE (16:35)
== END 2020-06-21 17:01 | disposition home or self-care (01) ==
LOC: ER 15:32
DX: F41.9 Anxiety disorder, unspecified (principal); F31.9 Bipolar disorder, unspecified; F20.9 Schizophrenia, unspecified; F12.90 Cannabis use, unspecified, uncomplicated; F15.90 Other stimulant use, unspecified, uncomplicated; F11.90 Opioid use, unspecified, uncomplicated; Z72.89 Other problems related to lifestyle; Z60.2 Problems related to living alone; Z56.0 Unemployment, unspecified; Z59.0 Homelessness; Z79.899 Other long term (current) drug therapy
CPT/HCPCS: 99283

== ENCOUNTER 2020-09-21 17:36 | Emergency (ER) | payer MEDICAID ==
[~2020-09-21] VITALS: Ht 177.8 cm; Wt 70.5 kg
[2020-09-21 20:23] LABS: BASOPHILS # (AUTO) 0.1 X10'3 (0-0.2); BASOPHILS % (AUTO) 0.7 % (0-1); EOSINOPHILS # (AUTO) 0.5 X10'3 (0-0.9); EOSINOPHILS % (AUTO) 5.7 % (0-6); HEMATOCRIT 45.3 % (42.0-52.0); HEMOGLOBIN 15.5 g/dl (14.0-17.9); LYMPHOCYTES # (AUTO) 2.5 X10'3 (1.1-4.8); LYMPHOCYTES % (AUTO) 28.5 % (21-51); MEAN CORPUSCULAR HEMOGLOBIN 33.7 PG (27.0-31.0); MEAN CORPUSCULAR HGB CONC 34.2 g/dL (33.0-36.5); MEAN CORPUSCULAR VOLUME 98.5 FL (78-98); MEAN PLATELET VOLUME 7.7 FL (7.4-10.4); MONOCYTES % (AUTO) 11.2 % (2-12); NEUTROPHILS # (AUTO) 4.8 X10'3 (1.8-7.7); NEUTROPHILS % (AUTO) 53.9 % (42-75); PLATELET COUNT 385 X10'3 (140-440); RED CELL DISTRIBUTION WIDTH 13.2 % (11.5-14.5); WHITE BLOOD COUNT 8.8 X10'3 (4.5-11.0)
[2020-09-21 20:32] LABS: ALANINE AMINOTRANSFERASE 26 U/L (12-78); ALBUMIN 4.4 G/DL (3.4-5.0); ALBUMIN/GLOBULIN RATIO 1.2 (1.1-1.5); ALKALINE PHOSPHATASE 107 IU/L (46-116); ANION GAP 4 (8-16); ASPARTATE AMINO TRANSFERASE 14 U/L (10-37); BILIRUBIN,TOTAL 0.6 MG/DL (0.1-1.0); BLOOD UREA NITROGEN 18 MG/DL (7-18); BUN/CREATININE RATIO 18.2 (5.4-32.0); CALCIUM 9.2 MG/DL (8.5-10.1); CHLORIDE 98 MMOL/L (99-107); CREATININE 0.99 MG/DL (0.60-1.10); ETHANOL < 0.010 GM/DL (0.0-0.010); GLUCOSE 85 MG/DL (70-104); POTASSIUM 3.5 MMOL/L (3.5-5.1); SODIUM 127 MMOL/L (135-145); TOTAL CARBON DIOXIDE 25.5 MMOL/L (24-32); TOTAL PROTEIN 8.1 G/DL (6.4-8.2); eGFR 83 ML/MIN
[2020-09-21] MEDS ORDERED: normal saline 1000ML IV soln IVB ONE (20:45)
--- NOTE | 2020-09-21 21:26 | NUR ---
Patient brought to main ER to bed 20. Patient is well oriented. S/I, plans to stab self with a knife because of feeling frustrated. Patient is on his second litre of NaCl, it is infusing wide. Patient reported hyponatremic. Per Dr. Parsons she would like a sodium repeated when second IV is done. Patient is cooperative at this time, he is eating a turkey sandwich.
[2020-09-21] MEDS ORDERED: OLANZapine 2.5MG tablet PO ONE (21:45)
[2020-09-21] MEDS ORDERED: OLANZapine 2.5MG tablet PO SCH (21:45)
--- NOTE | 2020-09-21 22:28 | NUR ---
Note amadou in EDM - 09/21/20 at 2231 by AMOR Patients second litre of NaCl has been infused. Patients IV site is intact, no redness. Changed to saline lock. Flushed with 10 cc saline flush. Labs drawn for Na test. Patient tollerated well. Saline lock flushed again.
--- NOTE | 2020-09-21 22:28 | NUR ---
Two litres of NaCl infused IV. Changed to saline lock. Flushed. Lab sample is then drawn from saline lock to check sodium level. Sent to lab for analysis. Patient tollerated well.
[2020-09-21] MEDS ORDERED: OLAN10TA3 PO (22:47)
--- NOTE | 2020-09-22 00:12 | NUR ---
Pt sleeps quietly in a low fowlers position.
--- NOTE | 2020-09-22 00:18 | NUR ---
Patients Na has been corrected, WNL now.
--- NOTE | 2020-09-22 02:05 | NUR ---
Patient sleeping in mid fowlers position, knees flexed. No distress.
--- NOTE | 2020-09-22 03:40 | NUR ---
Patient sleeping in a low fowlers position, head turned left, knees flexed.
--- NOTE | 2020-09-22 04:30 | NUR ---
Patient up to void, then back to bed to sleep.
--- NOTE | 2020-09-22 05:57 | NUR ---
Patient sleeping, low fowlers position in bed.
--- NOTE | 2020-09-22 06:47 | NUR ---
PT RESTING ON BACK WITH SNORRING RESP EQUAL AND UNLABORED
--- NOTE | 2020-09-22 07:08 | NUR ---
UP TO BR FOR UA AND TO BRUSH TEETH
[2020-09-22 07:30] LABS: CLARITY,URINE CLEAR (Clear); COLOR,URINE YELLOW (Yellow); GLUCOSE, URINE NEGATIVE (Neg); KETONES,URINE NEGATIVE (Neg); LEUKOCYTE ESTERASE ,URINE NEGATIVE (Neg); NITRITES, URINE NEGATIVE (Neg); OCCULT BLOOD,URINE NEGATIVE (Neg); PROTEIN,URINE NEGATIVE (Neg); UROBILINOGEN,URINE 0.2 E.U/dL (0.2-1.0)
[2020-09-22 07:35] LABS: URINE AMPHETAMINE SCREEN POSITIVE (Neg); URINE BARBITUATE SCREEN NEGATIVE (Neg); URINE BENZODIAZEPINES SCREEN NEGATIVE (Neg); URINE CANNABINOID SCREEN POSITIVE (Neg); URINE COCAINE SCREEN NEGATIVE (Neg); URINE METHADONE SCREEN NEGATIVE (Neg); URINE OPIATE SCREEN NEGATIVE (Neg); URINE PHENCYCLIDINE SCREEN NEGATIVE (Neg)
[2020-09-22 07:38] LABS: UA COLLECTION TYPE VOIDED
--- NOTE | 2020-09-22 07:54 | NUR ---
RESTING ON BACK RR EQUAL AND UNLABORED
--- NOTE | 2020-09-22 09:00 | NUR ---
PACKET FAXED TO [facility]
--- NOTE | 2020-09-22 11:20 | NUR ---
CONTINUES RESTING ON BACK. RR EQUAL AND UNLABORED. PT ABLE TO SELF REPOSITION
--- NOTE | 2020-09-22 13:40 | NUR ---
PT AWAKE EATING LUNCH
--- NOTE | 2020-09-22 15:36 | NUR ---
PT RESTING ON WITH EYES CLOSED RR EQUAL AND UNLABORED
--- NOTE | 2020-09-22 18:30 | NUR ---
Patient sat up to the side of his bed to eat dinner and then layed back down. Patient appears to be resting comfortably with no s/s of distress noted
--- NOTE | 2020-09-22 19:32 | NUR ---
Patient got up and ambulated to the restroom and then returned to bed. Patient immediately went back to resting
[2020-09-22] MEDS ORDERED: olanzapine 10mg tablet PO SCH (21:00)
--- NOTE | 2020-09-22 21:15 | NUR ---
Received phone call from [facility] regarding patient needing an updated TSH level and a COVID test for possible placement. Orders placed and will fax results when available
--- NOTE | 2020-09-22 21:34 | NUR ---
Received call from Eliane regarding possible acceptance of patient. Nurse to nurse questions completed
--- NOTE | 2020-09-22 22:21 | NUR ---
TSH and negative COVID results faxed to [facility] for [facility]
--- NOTE | 2020-09-22 22:21 | NUR ---
Patient appears to be resting comfortably. No apparent s/s of distress noted
--- NOTE | 2020-09-22 22:53 | NUR ---
Pt has been accepted at [facility] 09/22 @2655 by BRITTANY Gracia. Pt will be picked up tomorrow AM or early afternoon
--- NOTE | 2020-09-22 23:03 | NUR ---
Patient appears to be resting comfortably. No apparent s/s of distress noted
--- NOTE | 2020-09-22 23:20 | NUR ---
Relieving primary RN, Grace, for break. Pt lying on his back with blankets covering to his shoulders. RR 14 and unlabored. sitter and RN within view of Pt AAT.
--- NOTE | 2020-09-22 23:57 | NUR ---
Patient appears to be resting comfortably. No apparent s/s of distress noted
--- NOTE | 2020-09-23 00:34 | NUR ---
Patient appears to be resting comfortably. No apparent s/s of distress noted
--- NOTE | 2020-09-23 01:47 | NUR ---
Patient appears to be resting comfortably. No apparent s/s of distress noted
--- NOTE | 2020-09-23 02:27 | NUR ---
Patient appears to be resting comfortably. No apparent s/s of distress noted
--- NOTE | 2020-09-23 03:18 | NUR ---
Patient appears to be resting comfortably. No apparent s/s of distress noted
--- NOTE | 2020-09-23 03:20 | NUR ---
Patient appears to be resting comfortably. No apparent s/s of distress noted
--- NOTE | 2020-09-23 03:55 | NUR ---
Patient appears to be resting comfortably. No apparent s/s of distress noted
--- NOTE | 2020-09-23 04:45 | NUR ---
Patient appears to be resting comfortably. No apparent s/s of distress noted
[2020-09-23 05:15] VITALS: BP 128/88
--- NOTE | 2020-09-23 05:43 | NUR ---
Patient appears to be resting comfortably. No apparent s/s of distress noted
--- NOTE | 2020-09-23 06:30 | NUR ---
pt is sleeping. no concerns at this time
--- NOTE | 2020-09-23 07:30 | NUR ---
pt is resting
--- NOTE | 2020-09-23 08:27 | NUR ---
[facility] ADMINISTRATIVE OFFICE CLERK ETA 1400.
--- NOTE | 2020-09-23 08:30 | NUR ---
pt is resting.
--- NOTE | 2020-09-23 09:53 | NUR ---
Patient appears to be resting comfortably. No apparent s/s of distress noted
--- NOTE | 2020-09-23 11:00 | NUR ---
Patient appears to be resting comfortably. No apparent s/s of distress noted
--- NOTE | 2020-09-23 12:00 | NUR ---
Patient appears to be resting comfortably. No apparent s/s of distress noted
--- NOTE | 2020-09-23 13:04 | NUR ---
Patient appears to be resting comfortably. No apparent s/s of distress noted
== END 2020-09-23 13:07 ==
LOC: ER 17:37
DX: R45.851 Suicidal ideations (principal); Z20.828 Contact with and (suspected) exposure to other viral communicable diseases; F20.9 Schizophrenia, unspecified; F41.9 Anxiety disorder, unspecified; F31.9 Bipolar disorder, unspecified; F12.90 Cannabis use, unspecified, uncomplicated; F15.90 Other stimulant use, unspecified, uncomplicated; F11.90 Opioid use, unspecified, uncomplicated; Z72.89 Other problems related to lifestyle; Z60.2 Problems related to living alone; Z56.0 Unemployment, unspecified; Z59.0 Homelessness; Z79.899 Other long term (current) drug therapy
CPT/HCPCS: 36415; 80053; 80305; 80320; 81003; 84295; 84443; 85025; 87635; 96360; 99285; C9803; J7030

== ENCOUNTER 2020-10-01 17:53 | Emergency (ER) | payer MEDICAID ==
[~2020-10-01] VITALS: Ht 177.8 cm; Wt 74.7 kg
[~2020-10-01 17:53] MED LIST changes: -GABA300C PO; -HYDR25CA PO; -HYDR50TA65 PO; +OLAN10TA3 PO; -PRAZ1CAP5 PO; -QUET100T33 PO; -QUET300T19 PO
[2020-10-01 18:08] VITALS: BP 118/84
== END 2020-10-01 18:38 | disposition home or self-care (01) ==
LOC: ER 17:54
DX: F15.90 Other stimulant use, unspecified, uncomplicated (principal); F31.9 Bipolar disorder, unspecified; F20.9 Schizophrenia, unspecified; F17.200 Nicotine dependence, unspecified, uncomplicated; F12.10 Cannabis abuse, uncomplicated; Z56.0 Unemployment, unspecified; Z59.0 Homelessness; Z79.899 Other long term (current) drug therapy; Z00.01 Encounter for general adult medical examination with abnormal findings
CPT/HCPCS: 99284

== ENCOUNTER 2020-10-06 13:22 | Emergency (ER) | payer MEDICAID ==
[~2020-10-06] VITALS: Ht 177.8 cm; Wt 75.0 kg
[2020-10-06 13:34] VITALS: BP 122/76
== END 2020-10-06 15:39 | disposition home or self-care (01) ==
LOC: ER 13:22
DX: S62.339D Displaced fracture of neck of unspecified metacarpal bone, subsequent encounter for fracture with routine healing (principal); F41.9 Anxiety disorder, unspecified; F31.9 Bipolar disorder, unspecified; F20.9 Schizophrenia, unspecified; F12.10 Cannabis abuse, uncomplicated; F15.10 Other stimulant abuse, uncomplicated; Z56.0 Unemployment, unspecified; Z59.0 Homelessness; X58.XXXD Exposure to other specified factors, subsequent encounter
CPT/HCPCS: 29125; 73130; 99283

== ENCOUNTER 2020-10-10 14:47 | Emergency (ER) | payer MEDICAID ==
[~2020-10-10] VITALS: Ht 177.8 cm; Wt 73.0 kg
[2020-10-10 15:00] VITALS: BP 119/83
[2020-10-10] MEDS ORDERED: IBUP-1984 PO (17:34)
== END 2020-10-10 17:59 | disposition home or self-care (01) ==
LOC: ER 14:47
DX: Z46.89 Encounter for fitting and adjustment of other specified devices (principal); M79.644 Pain in right finger(s); F12.90 Cannabis use, unspecified, uncomplicated; F15.90 Other stimulant use, unspecified, uncomplicated; Z56.0 Unemployment, unspecified; Z59.0 Homelessness; Z60.9 Problem related to social environment, unspecified; Z79.899 Other long term (current) drug therapy
CPT/HCPCS: 29125; 99283

== ENCOUNTER 2020-10-14 12:32 | Emergency (ER) | payer MEDICAID ==
[~2020-10-14] VITALS: Ht 177.8 cm; Wt 74.5 kg
[~2020-10-14 12:32] MED LIST changes: +IBUP-1984 PO
[2020-10-14 13:00] VITALS: BP 115/76
[2020-10-15] MEDS ORDERED: TRAM100T34 PO (18:36)
== END 2020-10-14 14:27 | disposition home or self-care (01) ==
LOC: ER 12:32
DX: S62.151 Displaced fracture of hook process of hamate [unciform] bone, right wrist (principal); F31.9 Bipolar disorder, unspecified; F20.9 Schizophrenia, unspecified; F15.10 Other stimulant abuse, uncomplicated; F12.10 Cannabis abuse, uncomplicated; Z79.899 Other long term (current) drug therapy; Z56.0 Unemployment, unspecified; Z59.0 Homelessness; X58.XXXD Exposure to other specified factors, subsequent encounter
CPT/HCPCS: 29125; 73130; 99283

== ENCOUNTER 2020-10-15 14:56 | Emergency (ER) | payer MEDICAID ==
[~2020-10-15] VITALS: Ht 177.8 cm; Wt 72.3 kg
--- NOTE | 2020-10-15 18:34 | NUR ---
Patient is ambulatory to [facility]. No distress. Requesting pain Rx for previously injured hand.
[2020-10-15] MEDS ORDERED: HYDROcodone/acetaminophen 5mg/325mg tablet PO ONE (18:35)
[2020-10-15] MEDS ORDERED: ondansetron 4mg rapidly disintigrating tab PO ONE ×2 (18:35→19:30)
[2020-10-15] MEDS ORDERED: TRAM100T34 PO (18:36)
[2020-10-15] MEDS ORDERED: acetaminophen 325mg tablet PO ONE (18:45)
--- NOTE | 2020-10-15 19:08 | NUR ---
Paatient suddenly complained of dizzyness. Acute diaphoresis and pallor. Patient complained of left sided abdominal discomfort. A 12 lead EKG was done. PA at bedside. Patient refused to lay in bed. Patient up to bathroom. Small brown BM. Patient back to bed.Patient placed supine.
--- NOTE | 2020-10-15 19:12 | NUR ---
Patient 12 lead was a sinus lindy, no ectopy. After BM NSR. B/P 96/57 82 19
--- NOTE | 2020-10-15 19:45 | NUR ---
Color is improved. Patient given a blanket. B/P 108/70 Pulse 75 14 Resp 14 NSR. Patient complains of no discomfort at this time.
[2020-10-15 20:11] VITALS: BP 112/78
== END 2020-10-15 20:15 | disposition home or self-care (01) ==
LOC: ER 14:57
DX: M79.641 Pain in right hand (principal); R51.9 Headache, unspecified; F41.9 Anxiety disorder, unspecified; F31.9 Bipolar disorder, unspecified; F20.9 Schizophrenia, unspecified; F12.90 Cannabis use, unspecified, uncomplicated; F15.90 Other stimulant use, unspecified, uncomplicated; Z60.2 Problems related to living alone; Z59.0 Homelessness; Z56.0 Unemployment, unspecified; Z79.899 Other long term (current) drug therapy
CPT/HCPCS: 93005; 99283

== ENCOUNTER 2020-10-17 22:09 | Emergency (ER) | payer MEDICAID ==
[~2020-10-17] VITALS: Ht 177.8 cm; Wt 76.8 kg
[~2020-10-17 22:09] MED LIST changes: -IBUP-1984 PO
[2020-10-17] MEDS ORDERED: OLANZapine 5mg rapidly disint. tablet PO ONE (22:40)
[2020-10-17] MEDS ORDERED: normal saline 1000ML IV soln IVB ONE (22:40)
[2020-10-17 22:55] LABS: BASOPHILS # (AUTO) 0.1 X10'3 (0-0.2); BASOPHILS % (AUTO) 0.4 % (0-1); EOSINOPHILS % (AUTO) 0.2 % (0-6); HEMATOCRIT 41.7 % (42.0-52.0); LYMPHOCYTES # (AUTO) 1.8 X10'3 (1.1-4.8); LYMPHOCYTES % (AUTO) 10.5 % (21-51); MEAN CORPUSCULAR HEMOGLOBIN 33.1 PG (27.0-31.0); MEAN CORPUSCULAR HGB CONC 33.5 g/dL (33.0-36.5); MEAN CORPUSCULAR VOLUME 98.7 FL (78-98); MEAN PLATELET VOLUME 7.6 FL (7.4-10.4); MONOCYTES # (AUTO) 1.6 X10'3 (0-0.9); MONOCYTES % (AUTO) 9.6 % (2-12); NEUTROPHILS # (AUTO) 13.6 X10'3 (1.8-7.7); NEUTROPHILS % (AUTO) 79.3 % (42-75); PLATELET COUNT 362 X10'3 (140-440); RED BLOOD COUNT 4.22 X10'6 (4.70-6.10); RED CELL DISTRIBUTION WIDTH 13.8 % (11.5-14.5); WHITE BLOOD COUNT 17.1 X10'3 (4.5-11.0)
[2020-10-17 23:09] LABS: ALANINE AMINOTRANSFERASE 26 U/L (12-78); ALBUMIN 4.6 G/DL (3.4-5.0); ALBUMIN/GLOBULIN RATIO 1.4 (1.1-1.5); ALKALINE PHOSPHATASE 101 IU/L (46-116); ANION GAP 11 (8-16); ASPARTATE AMINO TRANSFERASE 27 U/L (10-37); BILIRUBIN,TOTAL 0.4 MG/DL (0.1-1.0); BLOOD UREA NITROGEN 26 MG/DL (7-18); CALCIUM 8.9 MG/DL (8.5-10.1); CHLORIDE 103 MMOL/L (99-107); CREATININE 1.13 MG/DL (0.60-1.10); GLUCOSE 114 MG/DL (70-104); POTASSIUM 3.2 MMOL/L (3.5-5.1); SODIUM 138 MMOL/L (135-145); TOTAL CARBON DIOXIDE 24.1 MMOL/L (24-32); eGFR 72 ML/MIN
[2020-10-17 23:13] LABS: ETHANOL < 0.010 GM/DL (0.0-0.010)
--- NOTE | 2020-10-18 00:44 | NUR ---
The patient moved to bed 24 in the ER after being medically cleared in the main ER. He was cooperative with the move and is currently laying down to sleep
[2020-10-18 01:04] LABS: URINE AMPHETAMINE SCREEN POSITIVE (Neg); URINE BARBITUATE SCREEN NEGATIVE (Neg); URINE BENZODIAZEPINES SCREEN NEGATIVE (Neg); URINE CANNABINOID SCREEN POSITIVE (Neg); URINE COCAINE SCREEN NEGATIVE (Neg); URINE METHADONE SCREEN NEGATIVE (Neg); URINE OPIATE SCREEN NEGATIVE (Neg); URINE PHENCYCLIDINE SCREEN NEGATIVE (Neg)
--- NOTE | 2020-10-18 01:24 | NUR ---
The patient appears to be sleeping
--- NOTE | 2020-10-18 02:04 | NUR ---
The patient up to the nursing station several times asking for Xanax. Stated he felt anxious and was having "some" voices. made aware and order received for Zyprexa 5mg once.
[2020-10-18] MEDS ORDERED: OLANZapine 2.5MG tablet PO ONE (02:05)
--- NOTE | 2020-10-18 02:55 | NUR ---
The patient appears to be sleeping
--- NOTE | 2020-10-18 04:59 | NUR ---
The patient appears to be resting quietly on his bed
[2020-10-18 05:36] VITALS: BP 106/65
[2020-10-18] MEDS ORDERED: diphenhydrAMINE 25mg capsule PO ONE (09:30)
[2020-10-18] MEDS ORDERED: OLANZAPINE 5 MG TABLET PO STA (09:30)
== END 2020-10-18 11:26 | disposition home or self-care (01) ==
LOC: ER 22:10
DX: S62.141A Displaced fracture of body of hamate [unciform] bone, right wrist, initial encounter for closed fracture (principal); F29 Unspecified psychosis not due to a substance or known physiological condition; R45.851 Suicidal ideations; F31.9 Bipolar disorder, unspecified; F41.9 Anxiety disorder, unspecified; F20.9 Schizophrenia, unspecified; F17.200 Nicotine dependence, unspecified, uncomplicated; F12.90 Cannabis use, unspecified, uncomplicated; F15.90 Other stimulant use, unspecified, uncomplicated; Z60.2 Problems related to living alone; Z59.0 Homelessness; Z56.0 Unemployment, unspecified; X58.XXXA Exposure to other specified factors, initial encounter; Y93.9 Activity, unspecified; Y92.89 Other specified places as the place of occurrence of the external cause; Y99.8 Other external cause status
CPT/HCPCS: 29125; 36415; 80053; 80305; 80320; 85025; 96360; 99285; J7030; Q0163

== ENCOUNTER 2020-10-18 22:50 | Emergency (ER) | payer MEDICAID ==
[~2020-10-18] VITALS: Ht 177.8 cm; Wt 71.4 kg
[2020-10-18 22:52] VITALS: BP 175/102
[2020-10-18] MEDS ORDERED: OLANZapine 5mg rapidly disint. tablet PO ONE (23:20)
== END 2020-10-18 23:38 | disposition home or self-care (01) ==
LOC: ER 22:50
DX: R45.851 Suicidal ideations (principal); F15.10 Other stimulant abuse, uncomplicated; F41.9 Anxiety disorder, unspecified; F31.9 Bipolar disorder, unspecified; F20.9 Schizophrenia, unspecified; F12.90 Cannabis use, unspecified, uncomplicated; Z72.89 Other problems related to lifestyle; Z60.2 Problems related to living alone; Z59.0 Homelessness; Z56.0 Unemployment, unspecified; Z79.899 Other long term (current) drug therapy
CPT/HCPCS: 99283; 99285

== ENCOUNTER 2020-12-30 08:32 | Emergency (ER) | payer MEDICAID ==
[~2020-12-30] VITALS: Ht 177.8 cm; Wt 73.4 kg
[2020-12-30 08:38] VITALS: BP 121/81
== END 2020-12-30 09:56 | disposition home or self-care (01) ==
LOC: ER 08:33
DX: M79.641 Pain in right hand (principal); F12.90 Cannabis use, unspecified, uncomplicated; F15.90 Other stimulant use, unspecified, uncomplicated; Z56.0 Unemployment, unspecified; Z59.0 Homelessness; Z72.89 Other problems related to lifestyle; Z79.899 Other long term (current) drug therapy
CPT/HCPCS: 29240; 73130; 99283

== ENCOUNTER 2021-01-13 19:29 | Emergency (ER) | payer MEDICAID ==
[~2021-01-13] VITALS: Ht 177.8 cm; Wt 75.0 kg
[2021-01-13] MEDS ORDERED: OLAN10TA3 PO (20:33)
--- NOTE | 2021-01-13 20:47 | NUR ---
The patient to bed 24 from Triage. He reports that he is suicidal to overdose on Heroin which he does not have in his position. He did come in with THC which was given to security staff. His affect was blunted and he gave minimal eye contact. He stated that he has not been following up with mental health and has been off his medications. He stated that he has been increasingly depressed. He denies voices. He states he is only sleeping 4 hours per noc. He denies current drug use.
[2021-01-13 21:20] LABS: BASOPHILS # (AUTO) 0.1 X10'3 (0-0.2); BASOPHILS % (AUTO) 0.5 % (0-1); EOSINOPHILS # (AUTO) 0.5 X10'3 (0-0.9); EOSINOPHILS % (AUTO) 3.9 % (0-6); HEMATOCRIT 41.4 % (42.0-52.0); HEMOGLOBIN 13.9 g/dl (14.0-17.9); LYMPHOCYTES # (AUTO) 2.9 X10'3 (1.1-4.8); LYMPHOCYTES % (AUTO) 24.3 % (21-51); MEAN CORPUSCULAR HEMOGLOBIN 33.2 PG (27.0-31.0); MEAN CORPUSCULAR HGB CONC 33.6 g/dL (33.0-36.5); MEAN CORPUSCULAR VOLUME 98.7 FL (78-98); MEAN PLATELET VOLUME 7.4 FL (7.4-10.4); MONOCYTES # (AUTO) 0.8 X10'3 (0-0.9); MONOCYTES % (AUTO) 6.5 % (2-12); NEUTROPHILS # (AUTO) 7.8 X10'3 (1.8-7.7); NEUTROPHILS % (AUTO) 64.8 % (42-75); PLATELET COUNT 322 X10'3 (140-440); RED BLOOD COUNT 4.19 X10'6 (4.70-6.10)
[2021-01-13 21:21] LABS: CLARITY,URINE CLEAR (Clear); COLOR,URINE YELLOW (Yellow); GLUCOSE, URINE NEGATIVE (Neg); KETONES,URINE NEGATIVE (Neg); LEUKOCYTE ESTERASE ,URINE NEGATIVE (Neg); NITRITES, URINE NEGATIVE (Neg); OCCULT BLOOD,URINE NEGATIVE (Neg); PROTEIN,URINE NEGATIVE (Neg); UROBILINOGEN,URINE 0.2 E.U/dL (0.2-1.0)
[2021-01-13 21:22] LABS: UA COLLECTION TYPE CLN CATCH MIDSTREAM
[2021-01-13] MEDS ORDERED: OLANZapine 2.5MG tablet PO ONE (21:25)
[2021-01-13] MEDS ORDERED: olanzapine 10mg tablet PO ONE (21:30)
[2021-01-13 21:36] LABS: URINE AMPHETAMINE SCREEN POSITIVE (Neg); URINE BARBITUATE SCREEN NEGATIVE (Neg); URINE BENZODIAZEPINES SCREEN NEGATIVE (Neg); URINE CANNABINOID SCREEN POSITIVE (Neg); URINE COCAINE SCREEN NEGATIVE (Neg); URINE METHADONE SCREEN NEGATIVE (Neg); URINE OPIATE SCREEN NEGATIVE (Neg); URINE PHENCYCLIDINE SCREEN NEGATIVE (Neg)
[2021-01-13 21:36] LABS: ALANINE AMINOTRANSFERASE 24 U/L (12-78); ALBUMIN 3.3 G/DL (3.4-5.0); ALBUMIN/GLOBULIN RATIO 1.1 (1.1-1.5); ALKALINE PHOSPHATASE 91 IU/L (46-116); ANION GAP 8 (8-16); ASPARTATE AMINO TRANSFERASE 11 U/L (10-37); BILIRUBIN,TOTAL 0.1 MG/DL (0.1-1.0); BLOOD UREA NITROGEN 25 MG/DL (7-18); BUN/CREATININE RATIO 24.5 (5.4-32.0); CALCIUM 8.6 MG/DL (8.5-10.1); CHLORIDE 108 MMOL/L (99-107); CREATININE 1.02 MG/DL (0.60-1.10); ETHANOL < 0.010 GM/DL (0.0-0.010); GLUCOSE 99 MG/DL (70-104); POTASSIUM 4.4 MMOL/L (3.5-5.1); SODIUM 143 MMOL/L (135-145); TOTAL CARBON DIOXIDE 27.5 MMOL/L (24-32); TOTAL PROTEIN 6.3 G/DL (6.4-8.2); eGFR 80 ML/MIN
--- NOTE | 2021-01-13 22:20 | NUR ---
The patient is resting on his bed.
--- NOTE | 2021-01-14 00:10 | NUR ---
The patient appears to be sleeping
--- NOTE | 2021-01-14 01:37 | NUR ---
The patient appears to be sleeping
--- NOTE | 2021-01-14 03:39 | NUR ---
The patient up to use the bathroom and is now back in bed and appears to be sleeping
--- NOTE | 2021-01-14 04:41 | NUR ---
The patient appears to be sleeping at this time but is restless
--- NOTE | 2021-01-14 05:38 | NUR ---
The patient is being awakened for vital signs
[2021-01-14 05:58] VITALS: BP 126/86
--- NOTE | 2021-01-14 06:45 | NUR ---
Patient sleeping on left side. No distress observed. Continue to monitor.
--- NOTE | 2021-01-14 08:20 | NUR ---
Patient sitting up and eating breakfast. No distress observed. Continue to monitor.
--- NOTE | 2021-01-14 09:10 | NUR ---
Rashawn AVALOS, evaluating patient. No distress observed. Continue to monitor.
[2021-01-14] MEDS ORDERED: olanzapine 10mg tablet PO SCH (21:00)
== END 2021-01-14 10:55 | disposition home or self-care (01) ==
LOC: ER 19:31
DX: R45.851 Suicidal ideations (principal); Z20.822 Contact with and (suspected) exposure to COVID-19; F15.10 Other stimulant abuse, uncomplicated; F29 Unspecified psychosis not due to a substance or known physiological condition; F31.9 Bipolar disorder, unspecified; F41.9 Anxiety disorder, unspecified; F20.9 Schizophrenia, unspecified; F12.90 Cannabis use, unspecified, uncomplicated; Z60.2 Problems related to living alone; Z59.0 Homelessness; Z56.0 Unemployment, unspecified; Z79.899 Other long term (current) drug therapy
CPT/HCPCS: 36415; 80053; 80305; 80320; 81003; 85025; 87426; 99285

== ENCOUNTER 2021-01-24 19:44 | Emergency (ER) | payer MEDICAID ==
[~2021-01-24] VITALS: Ht 177.8 cm; Wt 72.8 kg
[2021-01-24 20:12] VITALS: BP 105/69
== END 2021-01-24 23:15 | disposition left against medical advice (07) ==
LOC: ER 19:45
DX: F41.9 Anxiety disorder, unspecified (principal); Z53.21 Procedure and treatment not carried out due to patient leaving prior to being seen by health care provider

== ENCOUNTER 2021-01-27 17:32 | Emergency (ER) | payer MEDICAID ==
[~2021-01-27] VITALS: Ht 177.8 cm; Wt 73.0 kg
[2021-01-27 17:59] VITALS: BP 117/66
== END 2021-01-28 07:34 | disposition left against medical advice (07) ==
LOC: ER 17:32
DX: R45.851 Suicidal ideations (principal); F15.90 Other stimulant use, unspecified, uncomplicated; F41.1 Generalized anxiety disorder; F32.9 Major depressive disorder, single episode, unspecified; F40.9 Phobic anxiety disorder, unspecified; Z72.89 Other problems related to lifestyle; Z56.0 Unemployment, unspecified; Z59.0 Homelessness; Z79.899 Other long term (current) drug therapy
CPT/HCPCS: 99281

== ENCOUNTER 2021-03-02 14:25 | Emergency (ER) | payer MEDICAID ==
[~2021-03-02] VITALS: Ht 177.8 cm; Wt 69.5 kg
[~2021-03-02 14:25] MED LIST changes: +CLOT15CR35 TP; +LITH300C PO; +NICO-668 BC; +OLAN10TA19 PO; -OLAN10TA3 PO; +PRAZ1CAP5 PO; +TRAZ-251 PO
[2021-03-02 14:28] VITALS: BP 133/85
== END 2021-03-02 16:14 | disposition left against medical advice (07) ==
LOC: ER 14:26
DX: F41.9 Anxiety disorder, unspecified (principal); Z53.21 Procedure and treatment not carried out due to patient leaving prior to being seen by health care provider

== ENCOUNTER 2021-03-07 08:31 | Emergency (ER) | payer MEDICAID ==
[~2021-03-07] VITALS: Ht 177.8 cm; Wt 71.7 kg
[2021-03-07] MEDS ORDERED: OLANZapine 2.5MG tablet PO ONE (09:05)
[2021-03-07] MEDS ORDERED: ALPRAZolam 0.5mg tablet PO ONE (09:05)
[2021-03-07] MEDS ORDERED: OLAN10TA3 PO (09:06)
[2021-03-12] MEDS ORDERED: NO HOME MEDS (16:49)
== END 2021-03-07 09:44 | disposition home or self-care (01) ==
LOC: ER 08:31
DX: F20.9 Schizophrenia, unspecified (principal); F31.9 Bipolar disorder, unspecified; Z59.0 Homelessness; Z56.0 Unemployment, unspecified
CPT/HCPCS: 99283

== ENCOUNTER 2021-07-26 17:38 | Emergency (ER) | payer MEDICAID ==
[~2021-07-26] VITALS: Ht 177.8 cm; Wt 71.8 kg
[~2021-07-26 17:38] MED LIST changes: +NALT50TA PO; -NICO-668 BC; -OLAN10TA19 PO; +OLAN10TA3 PO; +OLAN10TA73 PO; +SALI45SP PO
[2021-07-26] MEDS ORDERED: OLANZapine 2.5MG tablet PO SCH (18:15)
[2021-07-26] MEDS ORDERED: LORazepam 1 MG tablet PO ONE (18:15)
[2021-07-26 19:11] LABS: BASOPHILS # (AUTO) 0.1 X10'3 (0-0.2); BASOPHILS % (AUTO) 0.7 % (0-1); EOSINOPHILS # (AUTO) 0.6 X10'3 (0-0.9); EOSINOPHILS % (AUTO) 6.1 % (0-6); HEMATOCRIT 48.3 % (42.0-52.0); HEMOGLOBIN 16.3 g/dl (14.0-17.9); LYMPHOCYTES # (AUTO) 2.8 X10'3 (1.1-4.8); LYMPHOCYTES % (AUTO) 30.7 % (21-51); MEAN CORPUSCULAR HEMOGLOBIN 33.6 PG (27.0-31.0); MEAN CORPUSCULAR HGB CONC 33.9 g/dL (33.0-36.5); MEAN CORPUSCULAR VOLUME 99.1 FL (78-98); MEAN PLATELET VOLUME 8.4 FL (7.4-10.4); MONOCYTES # (AUTO) 0.9 X10'3 (0-0.9); MONOCYTES % (AUTO) 9.4 % (2-12); NEUTROPHILS # (AUTO) 4.8 X10'3 (1.8-7.7); NEUTROPHILS % (AUTO) 53.1 % (42-75); PLATELET COUNT 373 X10'3 (140-440); RED BLOOD COUNT 4.87 X10'6 (4.70-6.10); RED CELL DISTRIBUTION WIDTH 13.3 % (11.5-14.5); WHITE BLOOD COUNT 9.1 X10'3 (4.5-11.0)
[2021-07-26 19:16] LABS: ALANINE AMINOTRANSFERASE 23 U/L (12-78); ALBUMIN 4.4 G/DL (3.4-5.0); ALBUMIN/GLOBULIN RATIO 1.1 (1.1-1.5); ALKALINE PHOSPHATASE 117 IU/L (46-116); ANION GAP 11 (8-16); ASPARTATE AMINO TRANSFERASE 9 U/L (10-37); BILIRUBIN,TOTAL 0.2 MG/DL (0.1-1.0); BLOOD UREA NITROGEN 22 MG/DL (7-18); BUN/CREATININE RATIO 19.5 (5.4-32.0); CHLORIDE 100 MMOL/L (99-107); CREATININE 1.13 MG/DL (0.60-1.10); ETHANOL < 0.010 GM/DL (0.0-0.010); GLUCOSE 87 MG/DL (70-104); SODIUM 137 MMOL/L (135-145); TOTAL CARBON DIOXIDE 25.8 MMOL/L (24-32); TOTAL PROTEIN 8.3 G/DL (6.4-8.2); eGFR 71 ML/MIN
[2021-07-26 19:17] LABS: URINE AMPHETAMINE SCREEN NEGATIVE (Neg); URINE BARBITUATE SCREEN NEGATIVE (Neg); URINE BENZODIAZEPINES SCREEN NEGATIVE (Neg); URINE CANNABINOID SCREEN POSITIVE (Neg); URINE COCAINE SCREEN NEGATIVE (Neg); URINE METHADONE SCREEN NEGATIVE (Neg); URINE OPIATE SCREEN NEGATIVE (Neg); URINE PHENCYCLIDINE SCREEN NEGATIVE (Neg)
[2021-07-26] MEDS ORDERED: LIT300C PO (19:49)
[2021-07-26] MEDS ORDERED: NALT50TA PO (19:53)
[2021-07-26] MEDS ORDERED: OLAN10TA3 PO (19:55)
[2021-07-26] MEDS ORDERED: PRAZ2CAP2 PO (19:57)
[2021-07-26] MEDS ORDERED: TRAZ-251 PO (19:59)
[2021-07-26] MEDS: olanzapine 10mg tablet PO SCH (20:59)
[2021-07-26] MEDS: prazosin 1mg capsule PO SCH (21:00)
[2021-07-26] MEDS: lithium carbonate 300mg SR tablet (LithoBID) PO SCH (21:00)
--- NOTE | 2021-07-26 21:15 | NUR ---
Pt unable to wake and safely take lithium and prazosin after taking 2 mg ativan for agitation.
--- NOTE | 2021-07-27 00:12 | NUR ---
PATIENT SLEEPING ON HIS RIGHT SIDE IN BED. NO DISTRESS. PATIENT IS IN VIEW OF NURSES STATION. HE IS SLEEPING QUIETLY.
--- NOTE | 2021-07-27 02:11 | NUR ---
Pt. up to restroom
--- NOTE | 2021-07-27 05:08 | NUR ---
PATIENT AWOKE FOR VITAL SIGNS, HE IS COOPERATIVE, NO DISTRESS. PATIENT RETURNS TO SLEEP.
[2021-07-27] MEDS: naltrexone 50mg tablet PO SCH (08:00)
[2021-07-27] MEDS: lithium carbonate 300mg SR tablet (LithoBID) PO SCH ×3 (08:00→20:01)
--- NOTE | 2021-07-27 08:00 | NUR ---
Pt. awake and eat breakfast at bedside. Pt. took all medications and went to sleep.
--- NOTE | 2021-07-27 10:00 | NUR ---
RN attempted to do 1:1 interview at bedside, pt. gives minimal information, only stating that he is currently suicidal with a plan to jump off a bridge. Pt. stops responding to this RN's questions and goes back to bed.
--- NOTE | 2021-07-27 12:00 | NUR ---
Pt. asleep in bed, lying down on left side. Normal R&R of respirations observed. Pt. in no apparent distress.
--- NOTE | 2021-07-27 13:00 | NUR ---
[place] level obtained which showed below therapeutic range at <0.3.
--- NOTE | 2021-07-27 14:00 | NUR ---
Pt. awoke and ate 1/2 of his lunch and then went back to sleep.
--- NOTE | 2021-07-27 16:00 | NUR ---
Admitting attempted to do paperwork with pt., pt. not cooperative and ignoring admitting personel.
[2021-07-27] MEDS ORDERED: ondansetron 4mg rapidly disintigrating tab PO ONE (17:50)
--- NOTE | 2021-07-27 19:24 | NUR ---
The patient is isolating to his bed. He refused a physical assessment. He is very irritable. He stated that he is having command auditory hallucinations to kill himself. He ate only a small portion of his dinner.
[2021-07-27] MEDS: olanzapine 10mg tablet PO SCH (20:01)
[2021-07-27] MEDS: prazosin 1mg capsule PO SCH (20:01)
--- NOTE | 2021-07-27 21:10 | NUR ---
The patient appears to be sleeping
[2021-07-27] MEDS: traZODone 50mg tablet PO PRN (23:17)
--- NOTE | 2021-07-27 23:18 | NUR ---
The patient is awake and up to the bathroom. He is very irritable and stating he can't sleep. PRN trazodone given.
--- NOTE | 2021-07-28 00:49 | NUR ---
The patient appears to be sleeping
[2021-07-28] MEDS ORDERED: ondansetron 4mg rapidly disintigrating tab PO ONE ×2 (02:15→07:50)
--- NOTE | 2021-07-28 02:25 | NUR ---
The patient is up in the bathroom and vomiting. Dr. Zaamn notifed and orders received
--- NOTE | 2021-07-28 04:03 | NUR ---
The patient appears to be sleeping
--- NOTE | 2021-07-28 07:06 | NUR ---
Patient is sleeping quietly. No distress. In view from nurses station.
--- NOTE | 2021-07-28 08:02 | NUR ---
Patient was complaing of nauses, he describes vertago that he associates with head movement and laying supine. Dr. Posada consulted. Zofran 8 mg ODT ordered and administered. Patient is cooperative.
[2021-07-28] MEDS: naltrexone 50mg tablet PO SCH (09:25)
[2021-07-28] MEDS: lithium carbonate 300mg SR tablet (LithoBID) PO SCH ×3 (09:25→20:24)
[2021-07-28] MEDS ORDERED: LORazepam 1 MG tablet PO ONE (11:55)
[2021-07-28] MEDS: hydrOXYzine 25 MG tablet PO PRN ×2 (12:13→20:24)
--- NOTE | 2021-07-28 12:21 | NUR ---
This patient has stevenson re-evaluated by [facility]. Per the opinion of mental health, this patient remains delusional and suicidal. The [address] for now. The patienty exhibits anxiety and some agitation. He remains mostly in a cooperative state. Ativan 1 mp PO and Atarax 50 mg PO were given. The patient is medicatation compliant.
--- NOTE | 2021-07-28 17:18 | NUR ---
PT IS SLEEPING , NO C/O .
--- NOTE | 2021-07-28 19:44 | NUR ---
The patient was unable to eat his dinner. He is having nausea and vomiting. Contacted Nishant RICHARDSON with psychiatry and discussed with him if it was a possible med reaction and he thought it was more likely a flu bug. Keny RICHARDSON made aware of patient vomitine for the past two days and orders received.
[2021-07-28] MEDS: ondansetron 4mg rapidly disintigrating tab PO PRN (19:57)
[2021-07-28] MEDS: olanzapine 10mg tablet PO SCH (20:23)
[2021-07-28] MEDS: traZODone 50mg tablet PO PRN (20:24)
[2021-07-28] MEDS: prazosin 1mg capsule PO SCH (20:24)
--- NOTE | 2021-07-28 20:35 | NUR ---
The patient is resting on his bed
--- NOTE | 2021-07-28 21:57 | NUR ---
The patient appears to be sleeping
--- NOTE | 2021-07-28 23:57 | NUR ---
The patient appears to be sleeping
--- NOTE | 2021-07-29 02:42 | NUR ---
The patient has been drinking water. He has been up to the bathroom several times and is now resting on his bed but awake.
--- NOTE | 2021-07-29 04:13 | NUR ---
The patient appears to be sleeping
--- NOTE | 2021-07-29 06:03 | NUR ---
The patient is resting on his bed but awake.
[2021-07-29] MEDS: ondansetron 4mg rapidly disintigrating tab PO PRN (06:36)
[2021-07-29] MEDS: lithium carbonate 300mg SR tablet (LithoBID) PO SCH (07:13)
[2021-07-29] MEDS: naltrexone 50mg tablet PO SCH (07:14)
--- NOTE | 2021-07-29 08:22 | NUR ---
The patient is resting on his bed
--- NOTE | 2021-07-29 08:47 | NUR ---
The patient is awake and agitated about trying to get a hold of his mother. He is claiming she has the hospital number is blocked. He is swearing and animated but then went back to his bed.
[2021-07-29 09:23] VITALS: BP 127/83
== END 2021-07-29 09:38 ==
LOC: ER 17:39
DX: R45.851 Suicidal ideations (principal); Z20.822 Contact with and (suspected) exposure to COVID-19; F24 Shared psychotic disorder; F20.9 Schizophrenia, unspecified; F41.9 Anxiety disorder, unspecified; F31.9 Bipolar disorder, unspecified; F15.90 Other stimulant use, unspecified, uncomplicated; F11.90 Opioid use, unspecified, uncomplicated; Z72.89 Other problems related to lifestyle; Z60.2 Problems related to living alone; Z56.0 Unemployment, unspecified; Z59.00 Homelessness unspecified; Z79.2 Long term (current) use of antibiotics; Z79.899 Other long term (current) drug therapy
CPT/HCPCS: 36415; 80053; 80178; 80305; 80320; 84443; 85025; 87635; 99285; C9803

== ENCOUNTER 2021-08-01 06:12 | Emergency (ER) | payer MEDICAID ==
[~2021-08-01] VITALS: Ht 170.2 cm; Wt 70.0 kg
[~2021-08-01 06:12] MED LIST changes: -CLOT15CR35 TP; +LIT300C PO; -LITH300C PO; -OLAN10TA73 PO; -PRAZ1CAP5 PO; +PRAZ2CAP2 PO
[2021-08-01] MEDS ORDERED: OLANZapine 2.5MG tablet PO STA (06:18)
[2021-08-01] MEDS ORDERED: LORazepam 0.5 MG tablet PO ONE (06:20)
[2021-08-01] MEDS ORDERED: LORazepam 1 MG tablet PO ONE (06:30)
[2021-08-01] MEDS ORDERED: normal saline 1000ml 1,000 ML IV ONE (06:30)
[2021-08-01 07:05] LABS: BASOPHILS % (AUTO) 0.2 % (0-1); EOSINOPHILS % (AUTO) 0.2 % (0-6); HEMATOCRIT 40.2 % (42.0-52.0); HEMOGLOBIN 13.9 g/dl (14.0-17.9); LYMPHOCYTES # (AUTO) 1.4 X10'3 (1.1-4.8); LYMPHOCYTES % (AUTO) 9.5 % (21-51); MEAN CORPUSCULAR HEMOGLOBIN 33.7 PG (27.0-31.0); MEAN CORPUSCULAR HGB CONC 34.6 g/dL (33.0-36.5); MEAN CORPUSCULAR VOLUME 97.1 FL (78-98); MEAN PLATELET VOLUME 7.2 FL (7.4-10.4); MONOCYTES # (AUTO) 1.1 X10'3 (0-0.9); MONOCYTES % (AUTO) 7.1 % (2-12); NEUTROPHILS # (AUTO) 12.7 X10'3 (1.8-7.7); PLATELET COUNT 335 X10'3 (140-440); RED BLOOD COUNT 4.14 X10'6 (4.70-6.10); RED CELL DISTRIBUTION WIDTH 13.1 % (11.5-14.5); WHITE BLOOD COUNT 15.2 X10'3 (4.5-11.0)
[2021-08-01 07:21] LABS: ALANINE AMINOTRANSFERASE 27 U/L (12-78); ALBUMIN 4.4 G/DL (3.4-5.0); ALBUMIN/GLOBULIN RATIO 1.3 (1.1-1.5); ALKALINE PHOSPHATASE 111 IU/L (46-116); ANION GAP 11 (8-16); ASPARTATE AMINO TRANSFERASE 18 U/L (10-37); BILIRUBIN,TOTAL 0.6 MG/DL (0.1-1.0); BLOOD UREA NITROGEN 20 MG/DL (7-18); BUN/CREATININE RATIO 19.6 (5.4-32.0); CALCIUM 8.6 MG/DL (8.5-10.1); CHLORIDE 107 MMOL/L (99-107); CREATININE 1.02 MG/DL (0.60-1.10); GLUCOSE 145 MG/DL (70-104); POTASSIUM 3.7 MMOL/L (3.5-5.1); SODIUM 144 MMOL/L (135-145); TOTAL CARBON DIOXIDE 25.6 MMOL/L (24-32); TOTAL PROTEIN 7.7 G/DL (6.4-8.2); eGFR 80 ML/MIN
[2021-08-01 07:27] LABS: BILIRUBIN,DIRECT 0.2 MG/DL (0-0.3); LIPASE < 50 U/L (73-393); TROPONIN I < 0.04 NG/ML (0.0-0.05)
[2021-08-01 08:27] VITALS: BP 162/110
== END 2021-08-01 09:19 | disposition home or self-care (01) ==
LOC: ER 06:13
DX: Z02.89 Encounter for other administrative examinations (principal); R45.1 Restlessness and agitation; R00.0 Tachycardia, unspecified; F41.9 Anxiety disorder, unspecified; F31.9 Bipolar disorder, unspecified; F20.9 Schizophrenia, unspecified; F15.90 Other stimulant use, unspecified, uncomplicated; F11.90 Opioid use, unspecified, uncomplicated; Z72.89 Other problems related to lifestyle; Z60.2 Problems related to living alone; Z56.0 Unemployment, unspecified; Z59.00 Homelessness unspecified; Z79.899 Other long term (current) drug therapy
CPT/HCPCS: 36415; 71045; 80048; 80076; 83690; 84484; 85025; 93005; 96360; 99285; J7030

== ENCOUNTER 2021-08-02 19:06 | Emergency (ER) | payer MEDICAID ==
[~2021-08-02] VITALS: Ht 177.8 cm; Wt 75.9 kg
[2021-08-02] MEDS ORDERED: LORazepam 1 MG tablet PO ONE (21:40)
[2021-08-02] MEDS ORDERED: OLANZapine 5mg rapidly disint. tablet PO ONE (22:15)
--- NOTE | 2021-08-02 22:15 | NUR ---
pt was dc'd by Dr Romero, but pt wanted to stay. when pt was given his belongings back he found his razor and superficially cut his wrist. pt is now sleeping.
[2021-08-02 22:58] LABS: BASOPHILS % (AUTO) 0.2 % (0-1); EOSINOPHILS # (AUTO) 0.4 X10'3 (0-0.9); EOSINOPHILS % (AUTO) 3.9 % (0-6); HEMATOCRIT 40.2 % (42.0-52.0); HEMOGLOBIN 14.1 g/dl (14.0-17.9); MEAN CORPUSCULAR HEMOGLOBIN 33.7 PG (27.0-31.0); MEAN CORPUSCULAR VOLUME 96.2 FL (78-98); MEAN PLATELET VOLUME 7.4 FL (7.4-10.4); MONOCYTES % (AUTO) 8.7 % (2-12); NEUTROPHILS # (AUTO) 7.7 X10'3 (1.8-7.7); NEUTROPHILS % (AUTO) 69.2 % (42-75); PLATELET COUNT 304 X10'3 (140-440); RED BLOOD COUNT 4.18 X10'6 (4.70-6.10); WHITE BLOOD COUNT 11.2 X10'3 (4.5-11.0)
[2021-08-02 23:10] LABS: ALANINE AMINOTRANSFERASE 25 U/L (12-78); ALBUMIN 3.9 G/DL (3.4-5.0); ALBUMIN/GLOBULIN RATIO 1.2 (1.1-1.5); ALKALINE PHOSPHATASE 112 IU/L (46-116); ANION GAP 10 (8-16); ASPARTATE AMINO TRANSFERASE 25 U/L (10-37); BILIRUBIN,TOTAL 0.6 MG/DL (0.1-1.0); BLOOD UREA NITROGEN 33 MG/DL (7-18); BUN/CREATININE RATIO 28.2 (5.4-32.0); CALCIUM 8.8 MG/DL (8.5-10.1); CHLORIDE 105 MMOL/L (99-107); CREATININE 1.17 MG/DL (0.60-1.10); GLUCOSE 103 MG/DL (70-104); POTASSIUM 3.4 MMOL/L (3.5-5.1); SODIUM 143 MMOL/L (135-145); TOTAL CARBON DIOXIDE 27.8 MMOL/L (24-32); TOTAL PROTEIN 7.2 G/DL (6.4-8.2); eGFR 68 ML/MIN
--- NOTE | 2021-08-03 00:27 | NUR ---
pt appears to be asleep
--- NOTE | 2021-08-03 02:00 | NUR ---
pt continues to sleep, rr unlabored.
--- NOTE | 2021-08-03 07:57 | NUR ---
Pt sleeping, resp unlabored
--- NOTE | 2021-08-03 10:33 | NUR ---
Pt up awake, ambulates to bathroom. UA obtained and taken to lab
[2021-08-03 10:56] LABS: URINE AMPHETAMINE SCREEN POSITIVE (Neg); URINE BARBITUATE SCREEN NEGATIVE (Neg); URINE BENZODIAZEPINES SCREEN NEGATIVE (Neg); URINE CANNABINOID SCREEN POSITIVE (Neg); URINE COCAINE SCREEN NEGATIVE (Neg); URINE METHADONE SCREEN NEGATIVE (Neg); URINE OPIATE SCREEN NEGATIVE (Neg); URINE PHENCYCLIDINE SCREEN NEGATIVE (Neg)
--- NOTE | 2021-08-03 13:13 | NUR ---
Pt eats lunch quickly and goes back to sleep
--- NOTE | 2021-08-03 15:44 | NUR ---
Pt packet sent for eval. Pt continues to sleep.
--- NOTE | 2021-08-03 17:30 | NUR ---
[facility] at bedside to eval pt
--- NOTE | 2021-08-03 21:17 | NUR ---
Pt is currently sleeping in bed. NAD. Pt displays even and non labored breathing. Will continue to monitor.
--- NOTE | 2021-08-03 23:14 | NUR ---
Pt is sleeping in bed. NAD. Pt displays even and non labored breathing. Will continue to monitor.
--- NOTE | 2021-08-04 01:00 | NUR ---
Pt is sleeping. NAD.
--- NOTE | 2021-08-04 03:03 | NUR ---
Pt is sleeping. NAD.
--- NOTE | 2021-08-04 04:00 | NUR ---
Pt is sleeping. NAD.
--- NOTE | 2021-08-04 05:21 | NUR ---
Pt is sleeping. NAD.
--- NOTE | 2021-08-04 07:19 | NUR ---
The patient up at the change of shift demanding to use the phone but was made aware that the phone would not be available until 8am. He then demanded juice and was told that breakfast would be coming soon. He then began calling female staff a cunt. He also made rude derogatory comments when his roommate was speaking with staff stating "a gabriela in the ass" Discussed his home medication list with Dr. Frantz cardyprexa was ordered from his home medication list. The patient does not take medications when he is not in the hospital so some of his home med list was not ordered.
[2021-08-04] MEDS ORDERED: olanzapine 10mg tablet PO SCH (08:00)
--- NOTE | 2021-08-04 09:35 | NUR ---
The patient is yelling out from his bed demanding food. He is very irritable despite having zyprexa 10mg
[2021-08-04 10:29] VITALS: BP 95/61
== END 2021-08-04 10:33 | disposition home or self-care (01) ==
LOC: ER 19:07
DX: R45.851 Suicidal ideations (principal); F29 Unspecified psychosis not due to a substance or known physiological condition; F41.9 Anxiety disorder, unspecified; F31.9 Bipolar disorder, unspecified; F20.9 Schizophrenia, unspecified; F15.90 Other stimulant use, unspecified, uncomplicated; F11.90 Opioid use, unspecified, uncomplicated; Z72.89 Other problems related to lifestyle; Z60.2 Problems related to living alone; Z59.00 Homelessness unspecified; Z56.0 Unemployment, unspecified; Z79.899 Other long term (current) drug therapy
CPT/HCPCS: 36415; 80053; 80305; 85025; 99285

== ENCOUNTER 2021-08-27 13:28 | Inpatient (IN) | payer MEDICAID ==
[~2021-08-27] VITALS: Ht 177.8 cm; Wt 75.9 kg
[2021-08-27] MEDS ORDERED: loperamide 2mg capsule PO PRN (14:05)
[2021-08-27] MEDS ORDERED: magnesium hydroxide 30ml (MOM) UD suspension PO PRN (14:05)
[2021-08-27] MEDS ORDERED: acetaminophen 325mg tablet PO PRN ×2 (14:05)
[2021-08-27 14:43] VITALS: BP 136/89
--- NOTE | 2021-08-27 14:49 | NUR ---
Admission note: Pt admitted today to [facility] on 5150 at 1420 for DTS. Pt complains of suicidal ideation with a plan to cut his wrists with a razor blade. Pt has previous attempts. He lives with his mother but may not be able to return. Pt states "I need to be conserved." Pt has racing thoughts and poor impulse control. Pt has been off of his Olanzapine for 3 weeks. Pt was positive for THC. Pt has history of schizophrenia. Pt cooperative with admission process.
[2021-08-27] MEDS ORDERED: OLAN10TA3 PO (15:15)
[2021-08-27] MEDS: hydrOXYzine 25 MG tablet PO PRN (16:01)
--- NOTE | 2021-08-27 16:29 | NUR ---
Pt. presented as impulsive during admission process with poor concentration. He continues to report S/I and command A/NORRIS. He states with pressured speech is a tangental manner, "They tell me to get up and move and then I start to sweat and I get cold." Pt. reports a plan to sweat to and of hyperthermia. He has scars present on his bilateral wrists from previous self-inflicted lacerations. Pt. scores as a high risk on the [place] Suicide Risk Assessment, however is able to contract for safety on the unit, per DYLAN Cabrera 15min safety checks ordered. Pt. paced, appeared slightly agitated, and reported his mind is racing (speech is difficult to understand). PRN Atrax administered and he is resting at this time, will continue to monitor. Addendum: 08/27/21 at 1808 by Yecenia Crum RN Pt. is unsure if he has received a flu shot this current flu season, but he is requesting a flu shot at this time. Flu shot ordered to be given on AM shift tomorrow, endorsed to
[2021-08-27 19:37] VITALS: BP 139/81
[2021-08-27] MEDS: olanzapine 10mg tablet PO SCH (20:05)
--- NOTE | 2021-08-28 01:49 | NUR ---
Nursing Progress Note: Legal hold: 5150 Client on involuntary status for DTS. Report received from ABBY Smith with use of SBAR Why are they here: Pt admitted today to [facility] on 5150 at 1420 for DTS. Pt complains of suicidal ideation with a plan to cut his wrists with a razor blade. Pt has previous attempts. He lives with his mother but may not be able to return. Pt states "I need to be conserved." Pt has racing thoughts and poor impulse control. Pt has been off of his Olanzapine for 3 weeks. Pt was positive for THC. Pt has history of schizophrenia. Pt cooperative with admission process. Assessment What has happened this shift: Patient laying in bed at the beginning of shift. Pleasant and cooperative with care; compliant with medication. PRN Atarax provided per patient request. Patient reports +SI with a plan to cut himself and reports +AH that demand that he kills himself. Patient presents anxious and restless while out of bed. He participated in HS snack and while talking to proposal writer he continuously fidgets and rapidly moving side to side. Patient immediately returned to bed after snack; reported some difficulty staying asleep d/t increased anxiety; patient appears to be sleeping without difficulty after receiving Atarax. S/I, H/I: +SI A/VH: +AH Sleep: Refer to sleep assessment ADL's: Independent Group attendance: NA Were meds taken: Yes Any med S/E: None observed or reported Mental Status Exam Appearance: Disheveled; appropriately dressed in green unit attire Eye contact: Intense Behavior: Pleasant and cooperative, anxious and restless, isolative Speech: Clear audible, rapid Mood: Anxious Affect: Congruent to mood Thought process: Racing thoughts Thought Content: Meeting needs; feels he's unable to slow down Cognition: A/O x4 Insight: Poor Judgment: Poor Interventions PRN's used: Atarax Therapeutic interventions: Introduced self and established rapport, maintained a safe and supportive environment, ensured contract for safety, provided clear and simple instructions, provided active listening and positive encouragement, and maintained Q 15min safety checks. Restraints/seclusion/emergency medication: NA Justification of Continued Inpatient Treatment: Requires interruption of current crisis in a safe and supportive environment.
[2021-08-28] MEDS: olanzapine 10mg tablet PO SCH ×2 (07:29→20:15)
[2021-08-28] MEDS: hydrOXYzine 25 MG tablet PO PRN ×3 (07:34→17:08)
[2021-08-28 07:43] LABS: HEMOGLOBIN A1C 5.3 % (4.5-6.2)
[2021-08-28 07:46] LABS: CHOLESTEROL 152 MG/DL (0-200); HDL CHOLESTEROL 50 MG/DL (35-60); LDL CHOLESTEROL 86 MG/DL (50-100); TRIGLYCERIDES 68 MG/DL (20-135)
[2021-08-28 08:00] VITALS: BP 141/98
[2021-08-28] MEDS ORDERED: FLU VACC QS2021-22(6MOS UP)/PF 60 MCG/0.5 ML SYRINGE IM ONE (10:00)
--- NOTE | 2021-08-28 11:57 | NUR ---
Malnutrition consult: patient claim of weight loss of 2-13 lbs per malnutrition risk screen with RN. Patient shows an increase of 4 kg from previous admission in February to current admission, 71.9 to 75.9 kg. Patient on a regular diet, documented with 100% PO intake. No edema present, skin intact, and muscle strength is normal all per physical assessment. No clinical evidence for malnutrition at this time. Addendum: 08/28/21 at [address] Amended: Links added. Addendum: 08/28/21 at [address] I have reviewed and agree with note by help desk intern. Carmita VEE
--- NOTE | 2021-08-28 14:00 | NUR ---
Group Art Tx continued: Patient engaged in the group and the activities, completing the projects as directed. Patient was distracted and easily frustrated by another patient who lacked good boundaries and was talkative. Patient left the group choosing not to share his work. He remained appropriate and left quietly. *Please refer to the [facility] Case Notes for entire overview. Kenna Sheppard MA, MAINTAINER OPERATOR #[id number] [facility], Art Therapist Addendum: 08/29/21 at 1826 by Kenna Sheppard SS Amended: Links added.
--- NOTE | 2021-08-28 17:14 | NUR ---
Nursing Progress Note: Claudio Castillo Legal hold: 5150 Client on involuntary status for DTS Report received from ABBY Goodrich with use of SBAR Why are they here: Pt admitted today to [facility] on 5150 at 1420 for DTS. Pt complains of suicidal ideation with a plan to cut his wrists with a razor blade. Pt has previous attempts. He lives with his mother but may not be able to return. Pt states "I need to be conserved." Pt has racing thoughts and poor impulse control. Pt has been off of his Olanzapine for 3 weeks. Pt was positive for THC. Pt has history of schizophrenia. Pt cooperative with admission process. Assessment What has happened this shift: Patient noted sleeping in bed at change of shift. He awoke shortly after and endorsed feeling anxious about whether or not he is going to stay here. Patient presents as guarded, avoidant, and anxious upon interaction. Patient requested PRN Atarax for c/o anxiety this morning, given at 0734 with effectiveness. He joined in the community room with peers for breakfast. He is compliant with all medications. Patient retreated back to his room immediately after breakfast and was noted sleeping in bed. He was later observed walking up and down the hallway for a brief period of time, appearing bored. Patient was observed reading a book quietly sitting in his room. He endorsed +AH to this board writer, stating the voices are constantly telling him to walk around, move his arms, and make him do things he doesnt want to do. Patient endorsing that this prevents him from getting any rest. Patient endorsed +SI, stating that he plans to cut his wrists or do anything he can to . He was also noted endorsing frustration that certain people dont believe that he is psychotic. He denies HI and VH. Patient appears to be responding to internal stimuli. He is cooperative with care and appears linear. Patient did not participate in group therapy today despite encouragement. He was noted sleeping in bed the majority of the day aside from meal/ snack times. He awoke around 1700 and endorsed feelings of anxiety to this board writer. Patient given PRN Atarax at 1708 with effectiveness. He was noted walking around the unit later in the day listening to music through headphones. S/I, H/I: +SI A/VH: +AH Sleep: Patient slept 10 hours last night per NOC shift, napped the majority of the day ADL's: Independent Group attendance: No Were meds taken: Yes Any med S/E: None observed or reported Mental Status Exam Appearance: Disheveled; appropriately dressed in green unit scrubs Eye contact: Intense Behavior: Cooperative, anxious, restless, isolative Speech: Clear, audible, rapid Mood: Anxious, sleeping most of the day Affect: Congruent to mood Thought process: Racing thoughts, Linear Thought Content: Responding to internal stimuli, wants to cut his wrists or do anything he can to . Cognition: A&O x4 Insight: Poor Judgment: Poor Interventions PRN's used: Atarax Therapeutic interventions: Introduced self and established rapport, maintained a safe and supportive environment, ensured contract for safety, provided clear and simple instructions, provided active listening and positive encouragement, and maintained Q 15min safety checks. Restraints/seclusion/emergency medication: NA Justification of Continued Inpatient Treatment: Requires interruption of current crisis in a safe and supportive environment.
[2021-08-28 19:43] VITALS: BP 136/63
--- NOTE | 2021-08-29 02:05 | NUR ---
Nursing Progress Note: Legal hold: 5150 Client on involuntary status for DTS. Report received from ABBY Smith with use of SBAR Why are they here: Pt admitted today to [facility] on 5150 at 1420 for DTS. Pt complains of suicidal ideation with a plan to cut his wrists with a razor blade. Pt has previous attempts. He lives with his mother but may not be able to return. Pt states "I need to be conserved." Pt has racing thoughts and poor impulse control. Pt has been off of his Olanzapine for 3 weeks. Pt was positive for THC. Pt has history of schizophrenia. Pt cooperative with admission process. Assessment What has happened this shift: Patient pacing the unit wearing head phone at the beginning of shift. Pleasant and cooperative with care; compliant with medication. PRN Trazodone provided per patient request. Patient continues to endorse +SI and +AH. He reports voices that tell him to kill himself and that he has a plan to cut his wrists. Patient continues to sway rapidly back and forth when talking to him. Patient also speaks rapidly. Patient participated in HS snack and continued to pace prior to bed; observed sleeping and does not appear to be having difficulty. S/I, H/I: +SI A/VH: +AH Sleep: Refer to sleep assessment ADL's: Independent Group attendance: NA Were meds taken: Yes Any med S/E: None observed or reported Mental Status Exam Appearance: Disheveled; appropriately dressed in green unit attire Eye contact: Intense Behavior: Pleasant and cooperative, anxious and restless, isolative Speech: Clear audible, rapid Mood: Anxious Affect: Congruent to mood Thought process: Racing thoughts Thought Content: Meeting needs Cognition: A/O x4 Insight: Poor Judgment: Poor Interventions PRN's used: Trazodone Therapeutic interventions: Introduced self and established rapport, maintained a safe and supportive environment, ensured contract for safety, provided clear and simple instructions, provided active listening and positive encouragement, and maintained Q 15min safety checks. Restraints/seclusion/emergency medication: NA Justification of Continued Inpatient Treatment: Requires interruption of current crisis in a safe and supportive environment.
[2021-08-29 08:00] VITALS: BP 118/79
[2021-08-29] MEDS: olanzapine 10mg tablet PO SCH (08:10)
[2021-08-29] MEDS: hydrOXYzine 25 MG tablet PO PRN (11:15)
--- NOTE | 2021-08-29 17:57 | NUR ---
Nursing Progress Note: Legal hold: 5150 Client on involuntary status for DTS Report received from ABBY Goodrich with use of SBAR Why are they here: Pt admitted today to [place] [facility] on 5150 at 1420 for DTS. Pt complains of suicidal ideation with a plan to cut his wrists with a razor blade. Pt has previous attempts. He lives with his mother but may not be able to return. Pt states "I need to be conserved." Pt has racing thoughts and poor impulse control. Pt has been off of his Olanzapine for 3 weeks. Pt was positive for THC. Pt has history of schizophrenia. Pt cooperative with admission process. Assessment What has happened this shift: RN received pt. asleep in bed at start of shift. Pt. awoke for breakfast and took medication and went back to his room and napped. 1:1 done at bedside, pt. was impatient with RNs questions, stating, This is taking a long time isnt it. Pt. continues to report SI with plan to jump off a bridge or cut his wrists. Pt. reports hearing voices that tell him to kill himself. In afternoon pt. c/o of anxiety and requested Atarax 50mg and took with moderate effect. Pt. observed pacing with headphones and singing loudly at times. Pt. socially withdrawn. Pt. observed dancing in the del toro. S/I, H/I: +SI with plan to jump off a bridge or cut his wrists. A/VH: + command AH telling him to kill himself. Sleep: Patient slept 10 hours last night per NOC shift, napped intermittently throughout the day. ADL's: Independent Group attendance: No Were meds taken: Yes Any med S/E: Denies. None observed. Mental Status Exam Appearance: Disheveled; appropriately dressed in green unit scrubs Eye contact: Intense Behavior: Cooperative, anxious, restless, socially withdrawn, pacing and listening to headphones, singing loudly at times. Speech: Clear, audible, rapid Mood: Anxious Affect: Congruent to mood Thought process: Linear. Thought Content: Circumstantial. Cognition: A&O x4 Insight: Poor Judgment: Poor Interventions PRN's used: Atarax x1 Therapeutic interventions: Introduced self and established rapport, maintained a safe and supportive environment, ensured contract for safety, provided clear and simple instructions, provided active listening and positive encouragement, and maintained Q 15min safety checks. Restraints/seclusion/emergency medication: NA Justification of Continued Inpatient Treatment: Requires interruption of current crisis in a safe and supportive environment.
[2021-08-29 19:44] VITALS: BP 125/83
[2021-08-29] MEDS: traZODone 50mg tablet PO PRN (20:32)
[2021-08-29] MEDS: OLANZAPINE 5 MG TABLET PO SCH (20:33)
--- NOTE | 2021-08-30 03:06 | NUR ---
Nursing Progress Note: Legal hold: 5150 Client on involuntary status for DTS. Report received from ABBY Fu with use of SBAR Why are they here: Pt admitted today to [place] [facility] on 5150 at 1420 for DTS. Pt complains of suicidal ideation with a plan to cut his wrists with a razor blade. Pt has previous attempts. He lives with his mother but may not be able to return. Pt states "I need to be conserved." Pt has racing thoughts and poor impulse control. Pt has been off of his Olanzapine for 3 weeks. Pt was positive for THC. Pt has history of schizophrenia. Pt cooperative with admission process. Assessment What has happened this shift: Patient pacing the unit, dancing and listening to headphones at the beginning of shift. Pleasant and cooperative with care; compliant with medication. PRN Trazodone provided this shift. Patient continues to endorse +SI and +AH. He reports a plan to jump off a bridge or cut his wrists because the voices tell him to. Patient social with male peer and participated in HS snack prior to bed; observed sleeping and does not appear to be having difficulty. S/I, H/I: +SI A/VH: +AH Sleep: Refer to sleep assessment ADL's: Independent Group attendance: NA Were meds taken: Yes Any med S/E: None observed or reported Mental Status Exam Appearance: Neat and appropriately dressed in green unit attire Eye contact: Intense Behavior: Pleasant and cooperative, restless, social Speech: Clear audible, rapid Mood: Anxious Affect: Congruent to mood Thought process: Linear Thought Content: Meeting needs Cognition: A/O x4 Insight: Poor Judgment: Poor Interventions PRN's used: Trazodone Therapeutic interventions: Introduced self and established rapport, maintained a safe and supportive environment, ensured contract for safety, provided clear and simple instructions, provided active listening and positive encouragement, and maintained Q 15min safety checks. Restraints/seclusion/emergency medication: NA Justification of Continued Inpatient Treatment: Requires interruption of current crisis in a safe and supportive environment.
[2021-08-30 08:00] VITALS: BP 131/82
[2021-08-30] MEDS: olanzapine 10mg tablet PO SCH (08:11)
[2021-08-30] MEDS: mag hydrox/Alum hydrox/simeth 30ml oral suspension PO PRN (08:20)
[2021-08-30] MEDS: hydrOXYzine 25 MG tablet PO PRN (13:04)
--- NOTE | 2021-08-30 14:09 | NUR ---
Nursing Progress Note: Legal hold: 5150 Client on involuntary status for DTS Report received from ABBY Kelly with use of SBAR Why are they here: Pt admitted today to [place] for [facility] on 5150 at 1420 for DTS. Pt complains of suicidal ideation with a plan to cut his wrists with a razor blade. Pt has previous attempts. He lives with his mother but may not be able to return. Pt states "I need to be conserved." Pt has racing thoughts and poor impulse control. Pt has been off of his Olanzapine for 3 weeks. Pt was positive for THC. Pt has history of schizophrenia. Pt cooperative with admission process. Assessment What has happened this shift: Patient awake pacing at the start of the shift. Appears irritable when engaged in conversation. When approached for 1:1 assessment patient appears irritable and anxious stating, I was just about to go to sleep. Ill do it later. Sorry. And proceeds to nap. Reluctantly agreeable to 1:1 assessment later in the day. Requests Atarax for c/o anxiety which appears helpful. Listens to headphones and isolates in his room. Endorses command hallucinations and SI but only provides minimal detail and becomes irritable when being asked questions. S/I, H/I: Endorses SI with plan to jump off a bridge or cut his wrists. A/VH: Command AH telling him to kill himself. Sleep: Naps frequently throughout the day. ADL's: Independent Group attendance: No Were meds taken: Yes Any med S/E: None observed or reported. Mental Status Exam Appearance: Clean, male appropriately dressed in green unit scrubs Eye contact: Good Behavior: Irritable, anxious, restless, socially withdrawn, pacing and listening to headphones. Speech: Clear, audible, rapid Mood: Irritable Affect: Congruent to mood Thought process: Circumstantial Thought Content: Meeting needs. Cognition: A&O x4 Insight: Poor Judgment: Poor Interventions PRN's used: Atarax Therapeutic interventions: Maintained a safe and supportive environment, ensured contract for safety, provided clear and simple instructions, medication administration / education. Provided active listening and positive encouragement, and maintained Q 15min safety checks. Restraints/seclusion/emergency medication: NA Justification of Continued Inpatient Treatment: Requires interruption of current crisis in a safe and supportive environment.
[2021-08-30] MEDS: NICOTINE POLACRILEX 2 MG LOZENGE BC PRN (16:29)
[2021-08-30 19:00] VITALS: BP 128/84
[2021-08-30] MEDS: terbinafine cream 30gm TP SCH (20:35)
[2021-08-30] MEDS: OLANZAPINE 5 MG TABLET PO SCH (20:35)
[2021-08-30] MEDS: traZODone 50mg tablet PO PRN (20:36)
--- NOTE | 2021-08-31 02:24 | NUR ---
Nursing Progress Note: Legal hold: 5250 Client on involuntary status for DTS. Report received from ABBY Bryant with use of SBAR Why are they here: Pt admitted today to [place] [facility] on 5150 at 1420 for DTS. Pt complains of suicidal ideation with a plan to cut his wrists with a razor blade. Pt has previous attempts. He lives with his mother but may not be able to return. Pt states "I need to be conserved." Pt has racing thoughts and poor impulse control. Pt has been off of his Olanzapine for 3 weeks. Pt was positive for THC. Pt has history of schizophrenia. Pt cooperative with admission process. Assessment What has happened this shift: Patient social and walking in the del toro at the beginning of shift. Pleasant and cooperative with care; compliant with medication. PRN Trazodone provided this shift. Started Lamotrigine cream this shift; no ASE observed or reported. Continues to report +SI and +AH; "no changes." Patient participated in HS snack, continued to socialize and listening to headphones prior to bed; observed sleeping and does not appear to be having difficulty. S/I, H/I: +SI A/VH: +AH Sleep: Refer to sleep assessment ADL's: Independent Group attendance: NA Were meds taken: Yes Any med S/E: None observed or reported Mental Status Exam Appearance: Neat and appropriately dressed in green unit attire Eye contact: Intense Behavior: Pleasant and cooperative, restless, social Speech: Clear audible, rapid Mood: Anxious Affect: Congruent to mood Thought process: Linear Thought Content: Meeting needs Cognition: A/O x4 Insight: Poor Judgment: Poor Interventions PRN's used: Trazodone Therapeutic interventions: Introduced self and established rapport, maintained a safe and supportive environment, ensured contract for safety, provided clear and simple instructions, provided active listening and positive encouragement, and maintained Q 15min safety checks. Restraints/seclusion/emergency medication: NA Justification of Continued Inpatient Treatment: Requires interruption of current crisis in a safe and supportive environment.
[2021-08-31 07:34] VITALS: BP 132/79
[2021-08-31] MEDS: olanzapine 10mg tablet PO SCH (08:08)
[2021-08-31] MEDS: terbinafine cream 30gm TP SCH (08:33)
--- NOTE | 2021-08-31 14:39 | NUR ---
Initial: Pt admit for schizoaffective disorder with SI. Currently on a regular diet and eating well, documented with mostly 100% PO intake throughout LOS. LB 08/29, with PRN bowel care available. No documented edema or wounds. No nutrition diagnosis at this time. Will continue to follow. Recommendations: 1) Continue regular diet 2) Offer snacks for satiety 3) Bowel care PRN 4) Weekly scaled weights Addendum: 08/31/21 at [address] Amended: Links added.
[2021-08-31] MEDS: mag hydrox/Alum hydrox/simeth 30ml oral suspension PO PRN ×2 (15:53→21:04)
[2021-08-31] MEDS: hydrOXYzine 25 MG tablet PO PRN (16:08)
--- NOTE | 2021-08-31 17:24 | NUR ---
Nursing Progress Note: Legal hold: 525 Client on involuntary status for DTS Report received from ABBY Smith with use of SBAR Why are they here: Pt admitted today to [place] [facility] on 5150 at 1420 for DTS. Pt complains of suicidal ideation with a plan to cut his wrists with a razor blade. Pt has previous attempts. He lives with his mother but may not be able to return. Pt states "I need to be conserved." Pt has racing thoughts and poor impulse control. Pt has been off of his Olanzapine for 3 weeks. Pt was positive for THC. Pt has history of schizophrenia. Pt cooperative with admission process. Assessment What has happened this shift: RN received pt. asleep in bed at start of shift. Pt. awoke for breakfast and took medication and went back to his room and napped. 1:1 done in Rec Room, pt. states, I feel the same as yesterday and appeared impatient with this RNs questions. Pt. continues to report SI with plan to jump off a bridge or cut his wrists. Pt. reports hearing voices that tell him to kill himself. In afternoon pt. c/o of anxiety and requested Atarax 50mg and took with good effect. Pt. c/o of indigestion and received Maalox with good effect. Pt. observed pacing while listening to headphones. Pt. observed talking loudly on the phone talking about smoking cannabis and taking psychedelic mushrooms. S/I, H/I: +SI with plan to jump off a bridge or cut his wrists. A/VH: + command AH telling him to kill himself. Sleep: Patient slept 8 hours last night per NOC shift, napped intermittently throughout the day. ADL's: Independent Group attendance: NA Were meds taken: Yes Any med S/E: Denies. None observed. Mental Status Exam Appearance: Clean and neat, wearing green unit scrubs. Eye contact: Intense Behavior: Cooperative, anxious, restless, socially withdrawn, pacing and listening to headphones. Speech: Clear, audible, pressured. Mood: Anxious Affect: Congruent to mood Thought process: Linear. Thought Content: Circumstantial. Cognition: A&O x4 Insight: Poor Judgment: Poor Interventions PRN's used: Atarax x1, Maalox x1 Therapeutic interventions: Introduced self and established rapport, maintained a safe and supportive environment, ensured contract for safety, provided clear and simple instructions, provided active listening and positive encouragement, and maintained Q 15min safety checks. Restraints/seclusion/emergency medication: NA Justification of Continued Inpatient Treatment: Requires interruption of current crisis in a safe and supportive environment.
[2021-08-31] MEDS: traZODone 50mg tablet PO PRN (20:20)
[2021-08-31] MEDS: OLANZAPINE 5 MG TABLET PO SCH (20:22)
--- NOTE | 2021-08-31 23:00 | NUR ---
Nursing Progress Note: Legal hold: 5250 Client on involuntary status for DTS. Report received from ABBY Fu with use of SBAR Why are they here: Pt admitted today to [place] [facility] on 5150 at 1420 for DTS. Pt complains of suicidal ideation with a plan to cut his wrists with a razor blade. Pt has previous attempts. He lives with his mother but may not be able to return. Pt states "I need to be conserved." Pt has racing thoughts and poor impulse control. Pt has been off of his Olanzapine for 3 weeks. Pt was positive for THC. Pt has history of schizophrenia. Pt cooperative with admission process. Assessment What has happened this shift: Patient talking on the phone and pacing the del toro at the beginning of shift. Pleasant and cooperative with care; compliant with mediation. PRN Trazodone and Maalox provided this shift. He continues to endorse SI and AH. He is social with peers and participated in HS snack prior to bed; observed sleeping and does not appear to be having difficulty. S/I, H/I: +SI A/VH: +AH Sleep: Refer to sleep assessment ADL's: Independent Group attendance: NA Were meds taken: Yes Any med S/E: None observed or reported Mental Status Exam Appearance: Neat and appropriately dressed in green unit attire Eye contact: Intense Behavior: Pleasant and cooperative, restless, social Speech: Clear audible, rapid Mood: Anxious Affect: Animated Thought process: Linear Thought Content: Meeting needs Cognition: A/O x4 Insight: Poor Judgment: Poor Interventions PRN's used: Trazodone and Maalox Therapeutic interventions: Introduced self and established rapport, maintained a safe and supportive environment, ensured contract for safety, provided clear and simple instructions, provided active listening and positive encouragement, and maintained Q 15min safety checks. Restraints/seclusion/emergency medication: NA Justification of Continued Inpatient Treatment: Requires interruption of current crisis in a safe and supportive environment.
[2021-09-01] MEDS: hydrOXYzine 25 MG tablet PO PRN ×2 (06:46→18:51)
[2021-09-01] MEDS: olanzapine 10mg tablet PO SCH (07:33)
[2021-09-01] MEDS: terbinafine 250mg tablet PO SCH (07:33)
[2021-09-01 08:00] VITALS: BP 118/72
[2021-09-01] MEDS: mag hydrox/Alum hydrox/simeth 30ml oral suspension PO PRN (12:06)
[2021-09-01] MEDS: NICOTINE POLACRILEX 2 MG LOZENGE BC PRN ×2 (15:44→18:41)
--- NOTE | 2021-09-01 17:10 | NUR ---
Nursing Progress Note: Legal hold: 5250 Client on involuntary status for DTS Report received from ABBY Smtih with use of SBAR Why are they here: Pt admitted today to [place] for [facility] on 5150 at 1420 for DTS. Pt complains of suicidal ideation with a plan to cut his wrists with a razor blade. Pt has previous attempts. He lives with his mother but may not be able to return. Pt states "I need to be conserved." Pt has racing thoughts and poor impulse control. Pt has been off of his Olanzapine for 3 weeks. Pt was positive for THC. Pt has history of schizophrenia. Assessment What has happened this shift: Pt. received pacing unit. Pt. approached commercial insurance underwriter as delusional and suicidal AEB statement Im hearing voices telling me lifes not worth living. PRN Atarax given with effectiveness. Pt. provided active listening and positive encouragement during 1:1 assessment and he endorses current SI with no plan. Pt. tolerates inquiries and presents as anxious AEB darting eyes and fidgety behavior. Pt. acknowledges Hx of command auditory hallucinations and SI which resulted in admission. Pt. has no plan for DC and stated I might be staying. Pt. observed pacing del toro intermittently this shift. He ate meals in the dining room. Observed interacting socially with cohorts. He spent allot of time this shift following sport games on television and using cordless phone. Sap Bw Architect found pt. to be friendly when interacting on the unit and he participated in the group outing to the patio. S/I, H/I: +SI with no plan. A/VH: AH+ voices telling me lifes not worth living. Sleep: Patient slept 6.25 hours last night per NOC shift, napped intermittently throughout the day. ADL's: Independent Group attendance: Yes Were meds taken: Yes Any med S/E: Denies. None observed. Mental Status Exam Appearance: Clean and neat, wearing green unit scrubs. Eye contact: Good Behavior: Cooperative, restless, pacing Speech: Clear. Mood: Anxious Affect: Congruent to mood Thought process: Linear. Thought Content: Circumstantial. Cognition: A&O x4 Insight: Poor Judgment: Poor Interventions PRN's used: Atarax , Maalox, Nicotine Therapeutic interventions: Introduced self and established rapport, maintained a safe and supportive environment, ensured contract for safety, provided clear and simple instructions, provided active listening and positive encouragement, and maintained Q 15min safety checks. Restraints/seclusion/emergency medication: NA Justification of Continued Inpatient Treatment: Requires interruption of current crisis in a safe and supportive environment.
[2021-09-01] MEDS ORDERED: OLANZAPINE 5 MG TABLET PO SCH (20:00)
[2021-09-01] MEDS: traZODone 50mg tablet PO PRN (20:06)
[2021-09-01 20:17] VITALS: BP 130/85
[2021-09-01] MEDS ORDERED: olanzapine 10mg tablet PO SCH (21:00)
--- NOTE | 2021-09-02 02:49 | NUR ---
Nursing Progress Note: Legal hold: 5250 Client on involuntary status for DTS. Report received from ABBY Valdes with use of SBAR Why are they here: Pt admitted today to [place] for [facility] on 5150 at 1420 for DTS. Pt complains of suicidal ideation with a plan to cut his wrists with a razor blade. Pt has previous attempts. He lives with his mother but may not be able to return. Pt states "I need to be conserved." Pt has racing thoughts and poor impulse control. Pt has been off of his Olanzapine for 3 weeks. Pt was positive for THC. Pt has history of schizophrenia. Pt cooperative with admission process. Assessment What has happened this shift: Patient was out in the del toro at change of shift. He was pacing quickly. He appears anxious and paranoid. Provided Atarax with some improvement as he slowed a bit. Patient reports voices that tell him he's worthless and should kill himself. He states that he's here to be conserved, "I can't handle it out there." Patient says he's still having AH, and occasional SI, "but I won't try anything while I'm here." He requested Trazodone with HS meds, then he went right to bed. S/I, H/I: +SI A/VH: +AH Sleep: Refer to sleep assessment ADL's: Independent Group attendance: N/A Were meds taken: Yes Any med S/E: None observed or reported Mental Status Exam Appearance: Neat and appropriately dressed in green unit attire Eye contact: Intense Behavior: Pleasant and cooperative, restless, social, pacing, guarded. Speech: Clear audible, rapid Mood: Anxious Affect: Labile Thought process: Linear Thought Content: Meeting needs Cognition: A/O x4 Insight: Poor Judgment: Poor Interventions PRN's used: Trazodone Therapeutic interventions: Introduced self and established rapport, maintained a safe and supportive environment, ensured contract for safety, provided clear and simple instructions, provided active listening and positive encouragement, and maintained Q 15min safety checks. Restraints/seclusion/emergency medication: NA Justification of Continued Inpatient Treatment: Requires interruption of current crisis in a safe and supportive environment.
[2021-09-02] MEDS: terbinafine 250mg tablet PO SCH (07:19)
[2021-09-02] MEDS ORDERED: olanzapine 10mg tablet PO SCH (08:00)
[2021-09-02 08:12] VITALS: BP 120/81
--- NOTE | 2021-09-02 11:55 | NUR ---
Nursing Progress Note: Legal hold: 5250 Client on involuntary status for DTS Report received from ABBY Alfonso with use of SBAR Why are they here: Pt admitted today to [place] for [facility] on 5150 at 1420 for DTS. Pt complains of suicidal ideation with a plan to cut his wrists with a razor blade. Pt has previous attempts. He lives with his mother but may not be able to return. Pt states "I need to be conserved." Pt has racing thoughts and poor impulse control. Pt has been off of his Olanzapine for 3 weeks. Pt was positive for THC. Pt has history of schizophrenia. Assessment What has happened this shift: Pt was cooperative for care and assessments and did not have any behavior issues today. Pt spends time walking the halls, interacts with staff and peers and then naps frequently. Pt made delusional statements about a friend cutting off homeless peoples toenails and taping them to his toes, in an attempt to give him foot fungus. Pt accepted meds without issue. S/I, H/I: +SI with no plan. A/VH: AH+ denies today Sleep: see sleep assessment. Napped off and on today ADL's: Independent Group attendance: Yes Were meds taken: Yes Any med S/E: Denies. None observed. Mental Status Exam Appearance: Clean and neat, wearing green unit scrubs. Eye contact: Good Behavior: Cooperative, restless, pacing Speech: Clear. Mood: Anxious Affect: Congruent to mood Thought process: Linear. Thought Content: Circumstantial. Cognition: A&O x4 Insight: Poor Judgment: Poor Interventions PRN's used: Atarax , Maalox, Nicotine Therapeutic interventions: Introduced self and established rapport, maintained a safe and supportive environment, ensured contract for safety, provided clear and simple instructions, provided active listening and positive encouragement, and maintained Q 15min safety checks. Restraints/seclusion/emergency medication: NA Justification of Continued Inpatient Treatment: Requires interruption of current crisis in a safe and supportive environment.
[2021-09-02] MEDS: mag hydrox/Alum hydrox/simeth 30ml oral suspension PO PRN (12:21)
--- NOTE | 2021-09-02 13:24 | NUR ---
PROBABLE CAUSE HEARING Patients Name: Claudio Castillo Admission Date: 08/27/21 Date of 5150: 08/26/2021 Written by: [facility] Criteria: DTS Summary of Facts: States he has been having thoughts of suicide, that last night he was thinking of cutting his wrists with a razor but decided to get help instead. States if he doesnt get help he thinks that he would cut his wrists with a razor. Multiple past attempts including one this last January [place] Date of 525: 08/30/21 Written by: Yuri Criteria: DTS Summary of Facts: Pt continues to have significant depression and pscyhosis with aplan to either cut my wrists or shoot myself in the head. C/O AH telling him Im going to . He also c/o significant paranoid thoughts, feeling like someone is going to hurt me. Diagnosis: Behavior during past 48 HRS: According to provider note yesterday pt stated 'I want to go home.' 'I don't want to do suicide anymore, but it seems that I always end back there again.' He says Nishant told him he would refer him to the [facility]. Patient says he is wanting to leave because his grandma is 'ill and in the hospital. He still endorses some AH and CAH at times telling him to kill himself. Still a little depressed. but improved. When questioned further he states he's not sure about feeling suicidal. He isn't sure if he will be suicidal if he leaves here yet, but still wants to leave. Patient does not have a good safety plan for discharge at this time. We are still titrating medications to an effective dose while maintaining a therapeutic environment to prevent decompensation and readmission. FOOD: 100% SLEEPING: ADLS: LONGTERM: MEDICATION DOSAGE FREQUENCY DURATION Olanzapine 10mg one po QAM and 20mg hs Trazodone 150 mg p.o.nightly Vistaril 50mg one po Q6hr prn anxiety
[2021-09-02] MEDS ORDERED: NICO-907 BC (16:13)
[2021-09-02] MEDS ORDERED: HYDR-3686 PO (16:13)
[2021-09-02] MEDS ORDERED: OLAN10TA73 PO (16:13)
[2021-09-02] MEDS ORDERED: TRAZ-251 PO (16:13)
[2021-09-02] MEDS ORDERED: OLAN20TA19 PO (16:13)
--- NOTE | 2021-09-02 17:35 | NUR ---
DISCHARGE NOTE Pt had his probable cause hearing today and 5250 was not upheld. Pt's belongings inventoried and given to him. Pt verbalizes understanding of medication orders and that prescriptions were sent electronically to [facility] pharmacy. Pt verbalizes that his plan is to walk in to [facility], and that he is going to his mom's house tonight. Pt escorted off the unit at 1640.
== END 2021-09-02 16:40 | disposition home or self-care (01) | DRG 750 ==
LOC: ADULT MH 14:22
PROVIDERS: ADMIT Psychiatry & Neurology Psychiatry; ATTEND Psychiatry & Neurology Psychiatry
DX: F25.0 Schizoaffective disorder, bipolar type (principal); R45.851 Suicidal ideations; F39 Unspecified mood [affective] disorder; F15.20 Other stimulant dependence, uncomplicated; F17.210 Nicotine dependence, cigarettes, uncomplicated; B35.3 Tinea pedis; Z59.00 Homelessness unspecified; F41.9 Anxiety disorder, unspecified; Z79.899 Other long term (current) drug therapy; Z23 Encounter for immunization; Z81.8 Family history of other mental and behavioral disorders; Z56.0 Unemployment, unspecified
CPT/HCPCS: 36415; 80061; 83036; 87081; Q0177

== ENCOUNTER 2021-09-21 09:56 | Emergency (ER) | payer MEDICAID ==
[~2021-09-21] VITALS: Ht 177.8 cm; Wt 71.4 kg
[~2021-09-21 09:56] MED LIST changes: +HYDR-3686 PO; -LIT300C PO; -NALT50TA PO; +NICO-907 BC; -OLAN10TA3 PO; +OLAN10TA73 PO; +OLAN20TA19 PO; -PRAZ2CAP2 PO
--- NOTE | 2021-09-21 10:30 | NUR ---
Patient to rm 23 from triage. Changed into green scrubs. Patient is alert and oriented X4. Affect is flat. Patient complains of depression, S/I with a plan of jumping from a bridge. Audible and visual hallucinations are present. Patient tells this web content writer that he ran out of his zyprexa a week ago. A urine sample was obtained. Patient is cooperative with staff.
--- NOTE | 2021-09-21 10:40 | NUR ---
Pt provided with water, sandwich, orange juice and yogurt.
[2021-09-21] MEDS ORDERED: TRAZ-251 PO (10:45)
[2021-09-21] MEDS ORDERED: HYDR-3686 PO (10:45)
[2021-09-21] MEDS ORDERED: NICO-668 MM (10:45)
[2021-09-21] MEDS ORDERED: OLAN5TAB5 PO ×2 (10:51→10:52)
[2021-09-21] MEDS ORDERED: OLANZapine 5mg rapidly disint. tablet PO ONE (11:10)
[2021-09-21] MEDS ORDERED: hydrOXYzine 25 MG tablet PO ONE (11:10)
--- NOTE | 2021-09-21 11:11 | NUR ---
Med Rec completed and faxed.
[2021-09-21] MEDS ORDERED: NICOTINE POLACRILEX 2 MG LOZENGE BC PRN (11:15)
[2021-09-21 11:18] LABS: BASOPHILS % (AUTO) 0.5 % (0-1); EOSINOPHILS # (AUTO) 0.2 X10'3 (0-0.9); EOSINOPHILS % (AUTO) 4.2 % (0-6); HEMATOCRIT 36.5 % (42.0-52.0); HEMOGLOBIN 12.9 g/dl (14.0-17.9); LYMPHOCYTES # (AUTO) 1.6 X10'3 (1.1-4.8); LYMPHOCYTES % (AUTO) 29.1 % (21-51); MEAN CORPUSCULAR HEMOGLOBIN 34.6 PG (27.0-31.0); MEAN CORPUSCULAR HGB CONC 35.5 g/dL (33.0-36.5); MEAN CORPUSCULAR VOLUME 97.4 FL (78-98); MEAN PLATELET VOLUME 7.2 FL (7.4-10.4); MONOCYTES # (AUTO) 0.6 X10'3 (0-0.9); MONOCYTES % (AUTO) 9.9 % (2-12); NEUTROPHILS # (AUTO) 3.2 X10'3 (1.8-7.7); NEUTROPHILS % (AUTO) 56.3 % (42-75); PLATELET COUNT 244 X10'3 (140-440); RED BLOOD COUNT 3.74 X10'6 (4.70-6.10); WHITE BLOOD COUNT 5.6 X10'3 (4.5-11.0)
[2021-09-21 11:37] LABS: ALANINE AMINOTRANSFERASE 30 U/L (12-78); ALBUMIN 3.3 G/DL (3.4-5.0); ALBUMIN/GLOBULIN RATIO 1.1 (1.1-1.5); ALKALINE PHOSPHATASE 71 IU/L (46-116); ANION GAP 6 (8-16); ASPARTATE AMINO TRANSFERASE 17 U/L (10-37); BILIRUBIN,TOTAL 0.4 MG/DL (0.1-1.0); BLOOD UREA NITROGEN 10 MG/DL (7-18); CALCIUM 7.8 MG/DL (8.5-10.1); CHLORIDE 103 MMOL/L (99-107); CREATININE 0.91 MG/DL (0.60-1.10); GLUCOSE 102 MG/DL (70-104); POTASSIUM 3.6 MMOL/L (3.5-5.1); SODIUM 139 MMOL/L (135-145); TOTAL PROTEIN 6.3 G/DL (6.4-8.2); eGFR > 90 ML/MIN
[2021-09-21 11:38] LABS: ETHANOL < 0.010 GM/DL (0.0-0.010)
[2021-09-21 12:09] LABS: URINE AMPHETAMINE SCREEN NEGATIVE (Neg); URINE BARBITUATE SCREEN NEGATIVE (Neg); URINE BENZODIAZEPINES SCREEN NEGATIVE (Neg); URINE CANNABINOID SCREEN POSITIVE (Neg); URINE COCAINE SCREEN NEGATIVE (Neg); URINE METHADONE SCREEN NEGATIVE (Neg); URINE OPIATE SCREEN NEGATIVE (Neg); URINE PHENCYCLIDINE SCREEN NEGATIVE (Neg)
--- NOTE | 2021-09-21 12:21 | NUR ---
Patient is sleeping quietly, mid fowlers position in bed. No distress.
--- NOTE | 2021-09-21 12:50 | NUR ---
Packet faxed to [facility]
--- NOTE | 2021-09-21 14:46 | NUR ---
Call from [facility] who states that they have not received patient packet, will fax again.
--- NOTE | 2021-09-21 15:03 | NUR ---
Patient is sleeping mid fowlers in bed. No distress. Patient recieved Atarax earlier for anxiety. He is medication compliant
[2021-09-21] MEDS ORDERED: hydrOXYzine 25 MG tablet PO SCH (16:00)
[2021-09-21] MEDS ORDERED: hydrOXYzine 25 MG tablet PO PRN (16:10)
--- NOTE | 2021-09-21 16:30 | NUR ---
Patient is resting quietlly, low fowlers position in bed. No distress. Quiet and cooperative. In view from nurses station.
--- NOTE | 2021-09-21 16:46 | NUR ---
Packet still not received by [facility], 3rd attempt at faxing packet to [facility].
--- NOTE | 2021-09-21 19:41 | NUR ---
pt is resting, asked for an extra blanket. pt will be evaluated in the am.
[2021-09-21] MEDS ORDERED: traZODone 50mg tablet PO SCH (21:00)
[2021-09-21] MEDS ORDERED: OLANZapine 5mg rapidly disint. tablet PO SCH (21:00)
--- NOTE | 2021-09-21 23:13 | NUR ---
pt is sleeping, no s/s of distress noted
--- NOTE | 2021-09-22 00:49 | NUR ---
pt is sleeping, no s/s of distress noted.
--- NOTE | 2021-09-22 03:21 | NUR ---
pt is sleeping, rr unlabored.
[2021-09-22 05:16] VITALS: BP 140/100
--- NOTE | 2021-09-22 05:22 | NUR ---
pt continues to sleep, rr unlabored.
--- NOTE | 2021-09-22 09:32 | NUR ---
pt is sleeping, no needs at this time.
== END 2021-09-22 12:00 ==
LOC: ER 09:57
DX: F15.10 Other stimulant abuse, uncomplicated (principal); Z20.822 Contact with and (suspected) exposure to COVID-19; F60.3 Borderline personality disorder; R45.851 Suicidal ideations; F41.9 Anxiety disorder, unspecified; F31.9 Bipolar disorder, unspecified; F20.9 Schizophrenia, unspecified; F11.90 Opioid use, unspecified, uncomplicated; Z56.0 Unemployment, unspecified; Z59.00 Homelessness unspecified; Z72.89 Other problems related to lifestyle; Z79.899 Other long term (current) drug therapy
CPT/HCPCS: 36415; 80053; 80305; 80320; 85025; 87635; 99285; C9803; Q0177

== ENCOUNTER 2021-09-23 18:55 | Emergency (ER) | payer MEDICAID ==
[~2021-09-23] VITALS: Ht 177.8 cm; Wt 72.7 kg
[~2021-09-23 18:55] MED LIST changes: +NICO-668 MM; -NICO-907 BC; -OLAN10TA73 PO; -OLAN20TA19 PO; +OLAN5TAB5 PO; -SALI45SP PO
[2021-09-24] LABS: BASOPHILS # (AUTO) 0.1 X10'3 (0-0.2); BASOPHILS % (AUTO) 0.7 % (0-1); EOSINOPHILS # (AUTO) 0.5 X10'3 (0-0.9); EOSINOPHILS % (AUTO) 5.3 % (0-6); HEMATOCRIT 39.1 % (42.0-52.0); HEMOGLOBIN 13.6 g/dl (14.0-17.9); LYMPHOCYTES # (AUTO) 2.9 X10'3 (1.1-4.8); LYMPHOCYTES % (AUTO) 28.2 % (21-51); MEAN CORPUSCULAR HGB CONC 34.8 g/dL (33.0-36.5); MEAN CORPUSCULAR VOLUME 97.7 FL (78-98); MEAN PLATELET VOLUME 7.4 FL (7.4-10.4); MONOCYTES # (AUTO) 0.8 X10'3 (0-0.9); MONOCYTES % (AUTO) 7.5 % (2-12); NEUTROPHILS % (AUTO) 58.3 % (42-75); PLATELET COUNT 312 X10'3 (140-440); RED CELL DISTRIBUTION WIDTH 13.2 % (11.5-14.5); WHITE BLOOD COUNT 10.2 X10'3 (4.5-11.0)
[2021-09-24 00:15] LABS: ALANINE AMINOTRANSFERASE 28 U/L (12-78); ALBUMIN 3.7 G/DL (3.4-5.0); ALBUMIN/GLOBULIN RATIO 1.2 (1.1-1.5); ALKALINE PHOSPHATASE 78 IU/L (46-116); ANION GAP 9 (8-16); ASPARTATE AMINO TRANSFERASE 11 U/L (10-37); BILIRUBIN,TOTAL 0.2 MG/DL (0.1-1.0); BLOOD UREA NITROGEN 18 MG/DL (7-18); BUN/CREATININE RATIO 22.2 (5.4-32.0); CALCIUM 8.3 MG/DL (8.5-10.1); CHLORIDE 104 MMOL/L (99-107); CREATININE 0.81 MG/DL (0.60-1.10); ETHANOL < 0.010 GM/DL (0.0-0.010); GLUCOSE 100 MG/DL (70-104); POTASSIUM 3.8 MMOL/L (3.5-5.1); SODIUM 140 MMOL/L (135-145); TOTAL CARBON DIOXIDE 27.2 MMOL/L (24-32); TOTAL PROTEIN 6.9 G/DL (6.4-8.2); eGFR > 90 ML/MIN
--- NOTE | 2021-09-24 00:39 | NUR ---
Patient brought to ER overflow room 23. He ambulated on his own, accompanied by ABBY Oleary. Patient belongings cared for and he was placed in green scrubs. The patient climbed in bed and went to sleep.
--- NOTE | 2021-09-24 01:02 | NUR ---
Med rec sent to pharmacy.
[2021-09-24] MEDS ORDERED: NICOTINE POLACRILEX 2 MG LOZENGE BC PRN (01:40)
--- NOTE | 2021-09-24 01:51 | NUR ---
Patient asleep on his left side. Breathing even and unlabored. No signs of distress.
--- NOTE | 2021-09-24 03:17 | NUR ---
Patient sleeping on his right side. Breathing unlabored. No s/s of distress.
--- NOTE | 2021-09-24 04:46 | NUR ---
Patient up to bathroom. Urine sample obtained and sent to lab.
[2021-09-24 05:30] LABS: URINE AMPHETAMINE SCREEN NEGATIVE (Neg); URINE BARBITUATE SCREEN NEGATIVE (Neg); URINE BENZODIAZEPINES SCREEN NEGATIVE (Neg); URINE CANNABINOID SCREEN POSITIVE (Neg); URINE COCAINE SCREEN NEGATIVE (Neg); URINE METHADONE SCREEN NEGATIVE (Neg); URINE OPIATE SCREEN NEGATIVE (Neg); URINE PHENCYCLIDINE SCREEN NEGATIVE (Neg)
--- NOTE | 2021-09-24 06:33 | NUR ---
Patient lying on his right side. Respirations are even and nonlabored.
--- NOTE | 2021-09-24 06:44 | NUR ---
Patient up to the bathroom, then back to bed.
[2021-09-24 07:09] LABS: CLARITY,URINE SLIGHTLY CLOUDY (Clear); GLUCOSE, URINE NEGATIVE (Neg); KETONES,URINE NEGATIVE (Neg); LEUKOCYTE ESTERASE ,URINE NEGATIVE (Neg); NITRITES, URINE NEGATIVE (Neg); OCCULT BLOOD,URINE NEGATIVE (Neg); PH,URINE 8.5 (4.8-8.0); PROTEIN,URINE NEGATIVE (Neg); UROBILINOGEN,URINE 0.2 E.U/dL (0.2-1.0)
[2021-09-24 07:17] LABS: COLOR,URINE STRAW (Yellow); UA COLLECTION TYPE CLN CATCH MIDSTREAM
[2021-09-24 07:18] LABS: AMORPHOUS PHOSPHATES 3+
[2021-09-24 07:19] LABS: BACTERIA,URINE NONE SEEN /HPF (Neg); MUCUS STRANDS NONE SEEN /LPF (Neg); RBC,URINE NONE SEEN /HPF (0-2); SQUAMOUS EPITHELIAL CELL,UR FEW /LPF (FEW); WBC,URINE 0-4 /HPF (0-4)
[2021-09-24] MEDS ORDERED: OLANZapine 5mg rapidly disint. tablet PO SCH (08:00)
[2021-09-24] MEDS ORDERED: hydrOXYzine 25 MG tablet PO SCH (08:00)
--- NOTE | 2021-09-24 08:13 | NUR ---
Patient took medications without issue. Patient reports that he remains suicidal. Patient has superficial lacerations on left wrist.
--- NOTE | 2021-09-24 09:41 | NUR ---
[facility] here to evaluate patient.
[2021-09-24 11:22] VITALS: BP 117/81
[2021-09-24] MEDS ORDERED: traZODone 50mg tablet PO SCH (21:00)
== END 2021-09-24 11:32 | disposition home or self-care (01) ==
LOC: ER 18:56
DX: S61.512A Laceration without foreign body of left wrist, initial encounter (principal); F41.9 Anxiety disorder, unspecified; F31.9 Bipolar disorder, unspecified; F20.9 Schizophrenia, unspecified; F15.90 Other stimulant use, unspecified, uncomplicated; Z72.89 Other problems related to lifestyle; Z56.0 Unemployment, unspecified; Z59.00 Homelessness unspecified; Z79.899 Other long term (current) drug therapy; X78.8XXA Intentional self-harm by other sharp object, initial encounter; Y93.89 Activity, other specified; Y92.89 Other specified places as the place of occurrence of the external cause; Y99.8 Other external cause status
CPT/HCPCS: 36415; 80053; 80305; 80320; 81001; 85025; 99285; Q0177